=== PATIENT | male | born 1960 | race Hispanic/Latino ===

== ENCOUNTER 2018-05-08 10:27 | Inpatient (IN) | payer OTHER, SELFPAY ==
[2018-05-08] MEDS ORDERED: Ondansetron HCl/PF 4 MG/2 ML Vial ONE (10:47)
[2018-05-08] MEDS ORDERED: Morphine 10 MG/ML VIAL ONE (10:47)
[2018-05-08 11:02] LABS: #Eosinphils 0.1 thou/uL (0.0-0.7); #Lymphocytes 1.1 thou/uL (1.20-3.40); #Monocytes 0.5 thou/uL (0.11-0.59); #Neutrophils 6.6 thou/uL (1.40-6.50); %Basophils 0.5 % (0.0-1.0); %Eosinophils 0.7 % (0.0-10.0); %Monocytes 5.9 % (0.0-10.0); %Neutrophils 79.9 % (42.0-75.0); Hemoglobin 18.4 g/dL (14.0-18.0); Mean Corpuscular HGB CONC 30.6 g/dL (32.0-36.0); Mean Corpuscular Hemoglobin 27.3 pg (27.0-31.0); Mean Corpuscular Volume 89.1 fL (78.0-98.0); Mean Platelet Volume 9.3 fL (7.4-10.4); Platelet Count 152 thou/uL (130-400); RBC Distribution Width 13.8 % (11.5-14.5); Red Blood Cell (RBC) Count 6.75 mill/uL (4.70-6.10); White Blood Cell (WBC) Count 8.3 thou/uL (4.8-10.8)
[2018-05-08] MEDS ORDERED: ISOVUE-370 76%-LOCM 1 ML ONE (11:12)
[2018-05-08 11:24] LABS: ALT (SGPT) 31 U/L (8-55); AST (SGOT) 22 U/L (5-34); Albumin 3.9 g/dL (3.5-5.0); Alkaline Phosphatase 68 U/L (40-150); Anion Gap 16 mmol/L (10-20); BUN (Urea Nitrogen) 20 mg/dL (8.4-25.7); Bilirubin, Total 0.6 mg/dL (0.2-1.2); Calc. Creatinine Clearance 0 mL/min (70-130); Calcium 9.5 mg/dL (7.8-10.44); Carbon Dioxide 25 mmol/L (22-29); Chloride 100 mmol/L (98-107); Estimated GFR-MDRD 65; Globulin 3.6 g/dL (2.4-3.5); Glucose 138 mg/dL (70-105); Lipase 13 U/L (8-78); Potassium 4.5 mmol/L (3.5-5.1); Protein, Total 7.5 g/dL (6.0-8.3); Sodium 136 mmol/L (136-145)
[2018-05-08 12:56] LABS: Bilirubin Negative (Negative); Blood, Urine Trace (Negative); Clarity CLEAR (Clear); Glucose, Urine (Dipstick) Negative (Negative); Leukocyte Negative (Negative); Nitrite Negative (Negative); Protein, Urine (Dipstick) 100 mg/dL (Neg-Trace); Specific Gravity, Urine 1.025 (1.002-1.036); Urobilinogen 0.2 mg/dL (0.2-1.0); pH, Urine 5.5 (5.0-9.0)
[2018-05-08 13:00] LABS: Bacteria/HPF None Seen HPF (None Seen); Hyaline Casts/LPF 0-3 HYALINE CAST LPF (0-3 Hyaline); Pathc Cast-AUWi Flag 0.43 (0-2.49); RBC/HPF 0-3 HPF (0-3); Squamous Epithelial 0-3 HPF (0-3)
--- NOTE | 2018-05-08 13:20 | CT ---
CT ABDOMEN AND PELVIS WITH CONTRAST: HISTORY: Abdominal pain. Hernia. COMPARISON: None. FINDINGS: The pulmonary veins are dilated. Heart size is enlarged. There is reflux of contrast through the hepatic veins. There is a fat and small bowel containing ventral hernia, as well as fluid within this hernia sac. T here is mild distention of the small bowel proximal to this, measuring up to 3.4 cm. There is also s ome low grade mesenteric edema, likely due to vascular congestion. The small bowel distal to this is not dilated and is collapsed. There is extensive diverticular disease at the sigmoid colon without active current inflammation. Th e liver is unremarkable, as well as the spleen. The pancreas is unremarkable. Both adrenal glands a re unremarkable. No hydronephrosis. Aortoiliac contour is nonaneurysmal. No acute osseous abnormality. IMPRESSION: 1. Small bowel, fat, and fluid containing umbilical hernia with a narrow, 1.4 cm neck, with mild dil atation of the small bowel proximal to this, measuring up to 3.4 cm, with some adjacent mesenteric ed dudley, which may be the sequela of vascular congestion. Surgical consultation advised. 2. Moderate to severe diverticular disease of the sigmoid colon without active current inflammation. 3. Dilatation of the pulmonary veins, as well as reflux of contrast into the hepatic veins, suggesti ng diastolic dysfunction. POS: [facility]
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
[2018-05-08] MEDS ORDERED: Vecuronium 10 MG VIAL ONE ×2 (13:53→18:31)
[2018-05-08] MEDS ORDERED: PHENYLEPHRINE-NS 100 MCG/ML 10 ML SYRINGE ONE (13:53)
[2018-05-08] MEDS ORDERED: Naloxone HCl 0.4 mg/ml Vial ONE ×2 (14:22→14:31)
[2018-05-08] MEDS ORDERED: Naloxone HCl 2 mg/2 ml Syringe ONE (14:31)
[2018-05-08] MEDS ORDERED: Rocuronium Bromide 50 MG/5 ML VIAL ONE (14:41)
[2018-05-08 15:34] LABS: CO2 Tension 123.5 mmHg (35.0-45.0); O2 Tension (PaO2) 88.8 mmHg (80.0-100.0); pH, Arterial 7.07 (7.35-7.45)
[2018-05-08 15:35] LABS: Hematocrit-ABG 68.1 % (42.0-52.0)
[2018-05-08 15:36] LABS: ALV-art Gradient 13.505 (0-20); Analyzer IN Cardio ER; Calcium, Ionized 1.3 mmol/L (1.12-1.30); Puncture Site RRA
[2018-05-08] MEDS ORDERED: fentaNYL Citrate/PF 2,000 MCG in Sodium Chloride 0.9% 60 ML IV SCH (15:37)
[2018-05-08] MEDS ORDERED: Bupivacaine/Epinephrine 0.25% 30 ML VIAL ONE (16:04)
[2018-05-08 16:05] LABS: Actual Bicarbonate (HCO3a) 28.3 mEq/L (22-28); Base Excess (BEa) 1.9 mEq/L (-2.0 to +3.0); CO2 Tension 49.7 mmHg (35.0-45.0); Hematocrit-ABG 66.8 % (42.0-52.0); Hemoglobin (Hb) 19.3 g/dL (14.0-18.0); O2 Tension (PaO2) 78.2 mmHg (80.0-100.0); pH, Arterial 7.37 (7.35-7.45)
[2018-05-08 16:06] LABS: ALV-art Gradient 144.875 (0-20); Analyzer IN Cardio ER; Calcium, Ionized 1.2 mmol/L (1.12-1.30); Puncture Site RRA
[2018-05-08 16:08] LABS: Lactic Acid 2.3 mmol/L (0.5-2.2)
[2018-05-08] MEDS ORDERED: Fentanyl BOLUS 250 ML IVPB PRN ×2 (16:13→18:51)
--- NOTE | 2018-05-08 16:21 | RAD ---
CHEST ONE VIEW: 05/08/18 HISTORY: 57-year-old male with history of dyspnea, left lower abdominal pain. patient feels drowsy and shortne ss of breath at times. Endotracheal tube is noted in satisfactory location. Poor inspiratory effort. Minimal cardiomegaly. M inimal parenchymal changes in the bases probably subsegmental atelectasis. No confluent pneumonia or overt edema. IMPRESSION: Large body habitus lowers the sensitivity of this study. NG tube and endotracheal tubes in satisfacto ry location. Cardiomegaly with minimal increased markings in the bases probably subsegmental atelecta sis. POS: [facility]
[2018-05-08] MEDS ORDERED: Fentanyl 250 MCG/5 ML VIAL ONE (17:09)
[2018-05-08] MEDS ORDERED: Phenylephrine HCL 10 MG/ML VIAL ONE (17:09)
[2018-05-08] MEDS ORDERED: Albumin 5% 500 ML ONE (18:31)
[2018-05-08] MEDS ORDERED: Ondansetron HCl/PF 4 MG/2 ML Vial IVP PRN ×2 (18:51→18:53)
[2018-05-08] MEDS ORDERED: DISCONTINUE PREVIOUS NARCOTIC PAIN MEDICATIONS AND BENZODIAZEPINES FS SCH (18:51)
[2018-05-08] MEDS ORDERED: Promethazine HCl 25 MG/ML VIAL IM PRN (18:51)
[2018-05-08] MEDS ORDERED: Propofol BOLUS 1,000 MG/100 ML VIAL IV PRN (18:51)
[2018-05-08] MEDS ORDERED: Promethazine HCl 25 MG/ML VIAL SLOW IVP PRN (18:51)
[2018-05-08] MEDS ORDERED: Sodium Chloride 0.9% 1,000 ML IV SCH (18:53)
[2018-05-08] MEDS ORDERED: Morphine 4 MG/ML VIAL SLOW IVP PRN (19:00)
[2018-05-08] MEDS ORDERED: Bacitracin Zinc Ointment 30 gm TUBE ONE (19:20)
[2018-05-08 20:11] VITALS: BMI 38.2
[2018-05-08] MEDS: Sodium Chloride 0.45% 1,000 ML IV SCH (20:59)
[2018-05-08] MEDS: Propofol 1,000 MG/100 ML VIAL IV PRN (21:59)
--- NOTE | 2018-05-09 01:18 | OP ---
DATE OF OPERATION: 05/08/2018 PREOPERATIVE DIAGNOSIS: 1). Acute incarcerated umbilical hernia. 2). Morbid obesity POSTOPERATIVE DIAGNOSIS: 1). Acute incarcerated umbilical hernia. 2). Morbid obesity OPERATIONS PERFORMED: Repair of incarcerated umbilical hernia with large Ventralex ST hernia patch. ESTIMATED BLOOD LOSS: 5 mL FLUIDS GIVEN: 1200 mL crystalloids. ANESTHESIA: General endotracheal. COUNTS: Sponge and instrument count certified as correct x2. COMPLICATIONS: None apparent at the time of operation. INDICATIONS FOR PROCEDURE: A 57-year-old morbidly obese man presented to emergency department with over 6-hour history of nonreducible painful umbilical mass consistent with umbilical hernia incarceration. CT scan of the abdomen and pelvis revealed hernia with a narrow neck containing fat and small bowel. The patient was brought to the operating room for repair. Findings are consistent with a large hernia sac and narrow hernia defect. The bowel contents spontaneously reduced during the process of hernia sac dissection. DESCRIPTION OF PROCEDURE: Informed consent obtained from the patient's as the patient was unable to give consent. He had developed acute hypercarbic and hypoxemic respiratory failure by the time of my evaluation. Following consent by his , the patient was brought to the operating room and placed in supine position. General anesthesia was initiated per Anesthesia Department following which the abdomen was sterilely prepped and draped in usual fashion. The skin around the inferior aspect of the umbilicus was infiltrated with 0.25% Marcaine with epinephrine. A curvilinear infraumbilical incision was then made using # 10 scalpel. Incision was carried down to the level of the fascia. The umbilical hernia sac was dissected from the fascia. Umbilical stalk was then meticulously dissected off the hernia sac. During this dissection, I felt the contents of the hernia sac spontaneously reduced into the peritoneal cavity. I did then opened the hernia sac through the narrow hernia defect was unable to visualize any of the contents. It was of note, however, that the ascitic fluid was serous and clear, which does not suggest any possibility of strangulation. At this juncture, the hernia sac was excised circumferentially down to the level of the viable tanana fascia. This was passed off the operative field for onward transmission to pathology. A large Ventralex ST hernia patch was then brought into the operative field and introduced into the peritoneal cavity and this was sutured to the tanana fascia circumferentially using interrupted sutures of 2-0 Prolene. The fascia was then approximated in the midline using interrupted sutures of #1 single-stranded PDS. Umbilical stalk was then reattached to the tanana fascia using interrupted sutures of 2-0 Vicryl. Subcutaneous tissues were approximated using interrupted sutures of 2-0 Vicryl. Skin incision was closed using a running stitch of 3-0 Monocryl suture in subcuticular fashion. Dermabond was then applied. I had rolled some 4 x 4 gauze which was then placed into the umbilicus and tape was applied over this. The patient tolerated the operation without any apparent complication and was returned to the Intensive Care Unit in critical, but stable condition. NAKUL
[2018-05-09] MEDS: Propofol 1,000 MG/100 ML VIAL IV PRN ×3 (03:06→19:53)
[2018-05-09 06:06] LABS: Albumin 3.3 g/dL (3.5-5.0)
[2018-05-09 06:07] LABS: Chloride 103 mmol/L (98-107); Potassium 4.2 mmol/L (3.5-5.1); Sodium 139 mmol/L (136-145)
[2018-05-09 06:08] LABS: Calcium 9.1 mg/dL (7.8-10.44)
[2018-05-09 06:09] LABS: Globulin 3.1 g/dL (2.4-3.5); Glucose 155 mg/dL (70-105); Protein, Total 6.4 g/dL (6.0-8.3)
[2018-05-09 06:10] LABS: Anion Gap 14 mmol/L (10-20); Carbon Dioxide 26 mmol/L (22-29)
[2018-05-09 06:11] LABS: Alkaline Phosphatase 65 U/L (40-150)
[2018-05-09 06:12] LABS: Calc. Creatinine Clearance 105 mL/min (70-130); Estimated GFR-MDRD 51
[2018-05-09 06:13] LABS: BUN (Urea Nitrogen) 23 mg/dL (8.4-25.7)
[2018-05-09 06:14] LABS: ALT (SGPT) 23 U/L (8-55); AST (SGOT) 17 U/L (5-34); Bilirubin, Total 1.4 mg/dL (0.2-1.2)
[2018-05-09 06:23] LABS: Band 20 % (5-11); Hemoglobin 17.8 g/dL (14.0-18.0); Lymphocytes 10 % (21-51); MDiff Complete? YES; Mean Corpuscular HGB CONC 31.1 g/dL (32.0-36.0); Mean Corpuscular Volume 86.7 fL (78.0-98.0); Monocytes 4 % (0-10); Neutrophil 66 % (42-75); Platelet Count 176 thou/uL (130-400); RBC Distribution Width 14.1 % (11.5-14.5); Red Blood Cell (RBC) Count 6.58 mill/uL (4.70-6.10); White Blood Cell (WBC) Count 12.7 thou/uL (4.8-10.8)
[2018-05-09 06:55] LABS: Actual Bicarbonate (HCO3a) 27.2 mEq/L (22-28); Base Excess (BEa) 3.8 mEq/L (-2.0 to +3.0); CO2 Tension 37.6 mmHg (35.0-45.0); Hemoglobin (Hb) 19.1 g/dL (14.0-18.0); O2 Tension (PaO2) 60.2 mmHg (80.0-100.0); pH, Arterial 7.48 (7.35-7.45)
[2018-05-09 06:56] LABS: Calcium, Ionized 1.1 mmol/L (1.12-1.30); Puncture Site RR
--- NOTE | 2018-05-09 07:01 | CON ---
DATE OF CONSULTATION: 05/08/2018 HISTORY OF PRESENT ILLNESS: Tiburcio Culp is a 57-year-old male. His is an excellent historian who was in the room with him, daughter was in the room as well. He apparently presented to the emergency department with periumbilical pain. He has an umbilical hernia and by CT was found to have bowel entrapped in his hernia. General Surgery was consulted. When the surgeon arrived, Mr. Culp was noted to be poorly responsive and subsequently required intubation. His gives a great history for very severe sleep apnea. She has been trying for at least 2 years to get him in for a sleep study, but he has been refusing. She says he cannot go through the night without having long periods of apnea for which he awakens in. She says he gets angry when she awakens him, but he clearly does not breathe during sleep. He is also somnolent during the day. He is never fallen asleep while driving. PAST MEDICAL HISTORY: Remarkable otherwise only for hypertension and obesity. SOCIAL HISTORY: Non-smoker, nondrinker, no drug history. He works construction. FAMILY HISTORY: Negative for lung disease in early age. ALLERGIES: He has no reported drug allergies. MEDICATIONS: Prior to admission, he is reportedly on an aspirin, lisinopril, and Zyrtec. He is hypertensive when he was triaged at 176/112. PHYSICAL EXAMINATION: VITAL SIGNS: When I saw him, his blood pressure was normal. He was sedated for ventilation. HEENT: His conjunctiva was injected. His pupils reactive. NECK: Without lymphadenopathy. LUNGS: Clear and distant. HEART: Regular rhythm. ABDOMEN: Soft and nontender. He had a nonreducible large umbilical hernia. EXTREMITIES: Without clubbing, cyanosis or edema. NEUROLOGIC: Could not be examined. Chest radiograph did not show any alveolar infiltrates. Endotracheal tube and NG tube are in place. IMPRESSION: Respiratory failure associated with pain medication since untreated to very severe sleep apnea. He has with a hematocrit of 60. If his hemoglobin did not drop significantly, we need to consider phlebotomy, tomorrow he will have surgery and then remain mechanically ventilated. His pH this morning was 7.07, pCO2 was 123. Post-intubation blood gas 7.37, CO2 of 49, pO2 of 78. Hematocrit on his blood gas was 66 and 68 respectively. We will see his lab work shows and we will consider phlebotomy. He probably needs a sleep mechanically ventilated as I have explained to the for several days, so we can get caught up on sleep and will have surgery and hopefully did not require bowel resection. Critical care time 40 minutes. NAKUL
[2018-05-09] MEDS ORDERED: methylPREDNISolone Sod Succ/PF 125 MG/2 ML VIAL IVP SCH ×2 (09:00)
--- NOTE | 2018-05-09 09:39 | RAD ---
PORTABLE CHEST: Date: 05-09-18 Provided Clinical History: Respiratory insufficiency. FINDINGS: Comparison 05-08-18. Interval development of more conspicuous parenchymal and/or pleural opacity involv ing the left hemithorax primarily at the mid to lower lung zones. Endotracheal tube and enteric power ter again noted in similar positions. The right lung field appears clear. IMPRESSION: Interval increase in left mid and lower lung zone pleural and/or parenchymal opacity. Follow up is re commended. POS: [facility]
[2018-05-09] MEDS: Lorazepam 2 MG/ML VIAL SLOW IVP PRN ×2 (10:04→12:52)
[2018-05-09] MEDS: Sodium Chloride 0.45% 1,000 ML IV SCH ×2 (10:09→19:52)
--- NOTE | 2018-05-09 10:50 | PRG ---
DATE OF SERVICE: 05/09/2018 SUBJECTIVE: Mr. Culp is in no distress. OBJECTIVE: VITAL SIGNS: Blood pressure 116/69, heart rate is 90, respiratory rate 22, oximetry is 96. LUNGS: Clear. HEART: Regular rhythm. ABDOMEN: Soft. IMAGING: Chest radiograph is rotated and underpenetrated. LABORATORY DATA: White count 12.7, hemoglobin 17.8, platelets 176,000. Electrolytes normal, creatinine is 1.44, which I suspect is secondary to abdominal third spacing after his surgery. IMPRESSION: 1. Status post incarcerated umbilical hernia that has been surgically repaired. 2. Severe untreated sleep apnea, it has been likely life threatening with coexistent erythrocytosis. PLAN: Sleep him on mechanical ventilation for another day and then tomorrow wake him up and start aggressively trying to wean him from mechanical ventilation or probably have to go straight to BiPAP. I would like to avoid a tracheostomy if at all possible in this gentleman. His hypoxemia is most likely secondary to chronic hypoxemia associated with sleep apnea plus some atelectasis associated with his surgery yesterday. I suspect with ongoing volume resuscitation, his creatinine will stabilize. It is unclear why his bilirubin is elevated with normal liver enzymes unless he has Gilbert's syndrome. Continue to monitor this as well. Critical care time was 35 minutes. NAKUL
--- NOTE | 2018-05-09 16:02 | PRG ---
DATE OF SERVICE: 05/09/2018. SUBJECTIVE: Ms. Culp a 57-year-old morbidly obese man who is postoperative day #1 who is status post umbilical herniorrhaphy with mesh for an incarcerated umbilical hernia. The patient is on mecha nical ventilator support. Ventilator weaning is being conducted per Pulmonary Critical Care Medicine . The patient moves all extremities and follows commands. OBJECTIVE: VITAL SIGNS: Today includes blood pressure 110/59, pulse 85, respiratory rate is 18, temperature 99. 5 degrees Fahrenheit, oxygen saturation 96%. ABDOMEN: Soft, morbidly obese. Incision remains intact, clean, and dry. There is no evidence of he matoma around the umbilicus. No evidence of hernia recurrence. IMPRESSION: Postoperative day #1, status post umbilical herniorrhaphy with mesh. The patient is hem odynamically stable. Ventilatory wean is per Critical Care Medicine.
[2018-05-10 05:08] LABS: Anion Gap 15 mmol/L (10-20); BUN (Urea Nitrogen) 26 mg/dL (8.4-25.7); Calc. Creatinine Clearance 97 mL/min (70-130); Calcium 8.7 mg/dL (7.8-10.44); Carbon Dioxide 27 mmol/L (22-29); Chloride 101 mmol/L (98-107); Estimated GFR-MDRD 47; Glucose 106 mg/dL (70-105); Potassium 3.9 mmol/L (3.5-5.1); Sodium 139 mmol/L (136-145)
[2018-05-10 05:16] LABS: Band 14 % (5-11); Eosinophils 1 % (0-10); Hemoglobin 17.1 g/dL (14.0-18.0); Lymphocytes 4 % (21-51); MDiff Complete? YES; Mean Corpuscular HGB CONC 30.8 g/dL (32.0-36.0); Mean Corpuscular Hemoglobin 27.2 pg (27.0-31.0); Mean Corpuscular Volume 88.2 fL (78.0-98.0); Mean Platelet Volume 9.4 fL (7.4-10.4); Monocytes 15 % (0-10); Neutrophil 66 % (42-75); Platelet Count 153 thou/uL (130-400); RBC Distribution Width 14.3 % (11.5-14.5); Red Blood Cell (RBC) Count 6.29 mill/uL (4.70-6.10); White Blood Cell (WBC) Count 12.6 thou/uL (4.8-10.8)
[2018-05-10] MEDS: Sodium Chloride 0.45% 1,000 ML IV SCH ×2 (06:01→16:08)
[2018-05-10 07:38] LABS: CO2 Tension 57.2 mmHg (35.0-45.0); O2 Tension (PaO2) 77.1 mmHg (80.0-100.0); pH, Arterial 7.33 (7.35-7.45)
[2018-05-10 07:39] LABS: Actual Bicarbonate (HCO3a) 29.6 mEq/L (22-28); Base Excess (BEa) 1.7 mEq/L (-2.0 to +3.0); Calcium, Ionized 1.2 mmol/L (1.12-1.30); Hemoglobin (Hb) 19.5 g/dL (14.0-18.0); Puncture Site LRA
--- NOTE | 2018-05-10 10:33 | PRG ---
DATE OF SERVICE: 05/10/2018 Mr. Culp is a 57-year-old man, who is postoperative day #2, status post umbilical herniorrhaphy w ith mesh. The patient is on full mechanical ventilator support for acute preoperative respiratory fa ilure. The patient has a preexisting severe obstructive sleep apnea and chronic hypoxemia. Critical care support is provided by Pulmonary and Critical Care Service. Abdominal examination today reveal s a baseline morbidly obese abdomen. The umbilical herniorrhaphy site is clean and dry. There is no evidence of recurrence. Dressings were removed and left out. There is no acute surgical indication for this patient at this time. We will continue to follow along with the Critical Care Service.
--- NOTE | 2018-05-10 15:47 | PRG ---
DATE OF SERVICE: 05/10/2018 SUBJECTIVE: Mr. Culp was examined. He is awake and alert. He is in no distress. He had minimal NG output overnight. Spontaneous breathing trial was started and his minute volume was only 8 liters a minute. He passed a leak test. OBJECTIVE: LUNGS: Clear. HEART: Regular rhythm. ABDOMEN: Soft. EXTREMITIES: Without asymmetry. LABORATORY DATA: White count 12.6, hemoglobin 17.1, platelets 153,000. Sodium 139, potassium 3.9, chloride 101, bicarb 27, BUN 26, creatinine 1.55. IMPRESSION: 1. Status post incarcerated hernia repair. 2. Very severe sleep apnea, likely with erythrocytosis. Surprisingly, he did not have hypercarbia on presentation based on his Chem-7. 3. Chronic severe sleep deprivation, making him sensitive to opiates on presentation. Tiny doses of opiates can be used for pain, but that is all I would recommend at this time. He will have BiPAP placed. I felt he was a candidate for extubation. This has been done successfully. We will manage him intermittently with BiPAP eventually after empirically prescribed CPAP or BiPAP at discharge. Critical care time was 35 minutes MTDD
[2018-05-10] MEDS ORDERED: Lisinopril 20 MG TAB PO SCH (16:00)
[2018-05-11 04:59] LABS: Anion Gap 16 mmol/L (10-20); BUN (Urea Nitrogen) 25 mg/dL (8.4-25.7); Calc. Creatinine Clearance 128 mL/min (70-130); Calcium 9.5 mg/dL (7.8-10.44); Carbon Dioxide 27 mmol/L (22-29); Chloride 99 mmol/L (98-107); Estimated GFR-MDRD 64; Glucose 112 mg/dL (70-105); Sodium 138 mmol/L (136-145)
[2018-05-11] MEDS: Lisinopril 20 MG TAB PO SCH (08:53)
--- NOTE | 2018-05-11 14:48 | PRG ---
DATE OF SERVICE: 05/11/2018 SUBJECTIVE: This is a 57-year-old male status post umbilical herniorrhaphy with mesh. The patient h as been postop day #2. Upon my evaluation, he states his pain is well controlled. OBJECTIVE: VITAL SIGNS: Heart rate 87, blood pressure 112/59, respiratory rate 18, O2 sat 90% on room air. GENERAL: Sitting in a chair, out of bed, in no acute distress. Normal work of breathing. Symmetric rise. CARDIOVASCULAR: Regular rate and rhythm. GASTROINTESTINAL: Abdomen is rotund and moderately firm. There is an area of blanchable erythema wi thout fluctuance surrounding the surgical site. Both bedside RN and corroborate this area has n ot grown in size since yesterday. The surgical site is clean, dry and intact without evidence of elise inage. MUSCULOSKELETAL: Moves all extremities x4. NEUROLOGIC: No focal deficit noted. ASSESSMENT: 1. Incarcerated hernia, status post repair, postop day 2. 2. Acute abdominal pain secondary to above. 3. Acute hypercapnic respiratory failure, improved. PLAN: Continue postoperative care as ordered. Critical care per Critical Care Medicine. Supportive care per Hospital Medicine. Surgery will continue to follow.
--- NOTE | 2018-05-11 16:07 | PRG ---
DATE OF SERVICE: 05/11/2018 SUBJECTIVE: Mr. Culp did well overnight with his BiPAP. PHYSICAL EXAMINATION: VITAL SIGNS: His heart rate 83, blood pressure 117/71, respiratory rate 16, oximetry is 94%. GENERAL APPEARANCE: He is doing well, in no distress. LUNGS: Clear. HEART: Regular rhythm. ABDOMEN: Soft. He is passing gas, but not had a bowel movement yet. EXTREMITIES: With stasis changes. LABORATORY DATA: Sodium 138, potassium 4.0, chloride 99, bicarbonate 27, BUN 25, creatinine 1.18. IMPRESSION: 1. Status post incarcerated umbilical hernia. 2. Untreated sleep apnea. 3. Erythrocytosis secondary to severe sleep apnea. 4. Morbid obesity. Continue with empiric BiPAP for now whenever he is asleep. PLAN: Continue with local wound care. Continue with his lisinopril for his hypertension. Hopefully, moving out of the Critical Care Unit t omorrow.
[2018-05-12 04:28] LABS: Band 6 % (5-11); Eosinophils 2 % (0-10); Hemoglobin 15.9 g/dL (14.0-18.0); Lymphocytes 6 % (21-51); MDiff Complete? YES; Mean Corpuscular HGB CONC 31.1 g/dL (32.0-36.0); Mean Corpuscular Volume 90.1 fL (78.0-98.0); Monocytes 12 % (0-10); Neutrophil 74 % (42-75); Platelet Count 158 thou/uL (130-400); RBC Distribution Width 13.8 % (11.5-14.5); Red Blood Cell (RBC) Count 5.68 mill/uL (4.70-6.10); White Blood Cell (WBC) Count 8.5 thou/uL (4.8-10.8)
[2018-05-12 04:35] LABS: Anion Gap 12 mmol/L (10-20); BUN (Urea Nitrogen) 18 mg/dL (8.4-25.7); Calc. Creatinine Clearance 153 mL/min (70-130); Carbon Dioxide 32 mmol/L (22-29); Chloride 99 mmol/L (98-107); Estimated GFR-MDRD 79; Glucose 127 mg/dL (70-105); Potassium 4.2 mmol/L (3.5-5.1); Sodium 139 mmol/L (136-145)
[2018-05-12] MEDS: Lisinopril 20 MG TAB PO SCH (08:38)
--- NOTE | 2018-05-12 10:08 | PRG ---
DATE OF SERVICE: 05/12/2018 SUBJECTIVE: Mr. Kim is a 57-year-old morbidly obese man with a BMI of 38 kilograms per meter [facility]. The patient is postoperative day #4 status post umbilical herniorrhaphy for an incarcerated umbi lical hernia. The patient is awake and alert. Reports adequate pain control. He is tolerating diet . He just had large bowel movement. PHYSICAL EXAMINATION: VITAL SIGNS: This morning includes blood pressure 100/62, pulse 75, respiratory rate is 18, maximum temperature in the last 24 hours is 98.3 degrees Fahrenheit, oxygen saturation 93% on nasal cannula o xygen. ABDOMEN: Soft and morbidly obese. Incisional wound remains intact with minimum serosanguineous drai nage edges. There is surrounding erythema in the wound which blanches with palpation. No flocculenc e or any subcutaneous hematoma is present. LABORATORY DATA: Today includes CBC with 8,500 white blood cells, hemoglobin and hematocrit are 15.9 and 51.2 respectively, platelet count is 158,000. White blood cell count yesterday was 12,600. Met abolic profile today; sodium 139, potassium 4.2, chloride is 99, bicarbonate 32, BUN 18, creatinine 0 .98, glucose 127. IMPRESSION: 1. Postop day #4, status post open umbilical herniorrhaphy with mesh. 2. Subcutaneous cellulitis. PLAN: We will start the patient on cefazolin for the next 24-48 hours. The borders of the skin eryt rowena were marked and will be followed.
[2018-05-12] MEDS ORDERED: CEFAZOLIN 2 GM in Sodium Chloride 0.9% 100 ML IVPB SCH (14:00)
[2018-05-12] MEDS: CEFAZOLIN/Water 2 GM/20 ML SYRINGE SLOW IVP SCH ×2 (14:28→22:13)
--- NOTE | 2018-05-12 18:09 | PRG ---
DATE OF SERVICE: 05/12/2018 SUBJECTIVE: Mr. Culp's wound apparently is not looking good. He was started on antibiotics toda y. He is compliant with his CPAP/BiPAP at night. OBJECTIVE: VITAL SIGNS: He is afebrile, heart rate is 80, respiratory rate is 22, oximetry is 94. LUNGS: Clear. HEART: Regular rhythm. ABDOMEN: Soft. LABORATORY DATA: White count is down to 8.5, hemoglobin 15.9, and platelets 158,000. Electrolytes w ere unremarkable with the exception of bicarbonate of 32. IMPRESSION AND PLAN: 1. Life threatening sleep apnea with an erythrocytosis on admission. His hemoglobin is down to 15.9 . 2. Morbid obesity. 3. Status post incarcerated umbilical hernia repair with wound issues, being followed by General Gary denise. I will continue to follow. He will need an outpatient sleep study. His family will probably have to come up with money for an auto titrating device until we get him a sleep study.
[2018-05-13 04:44] LABS: Anion Gap 13 mmol/L (10-20); BUN (Urea Nitrogen) 16 mg/dL (8.4-25.7); Calc. Creatinine Clearance 158 mL/min (70-130); Calcium 9.4 mg/dL (7.8-10.44); Carbon Dioxide 34 mmol/L (22-29); Chloride 96 mmol/L (98-107); Estimated GFR-MDRD 82; Glucose 120 mg/dL (70-105); Potassium 3.8 mmol/L (3.5-5.1); Sodium 139 mmol/L (136-145)
[2018-05-13 04:54] LABS: Band 6 % (5-11); Eosinophils 4 % (0-10); Hemoglobin 15.8 g/dL (14.0-18.0); Lymphocytes 13 % (21-51); MDiff Complete? YES; Mean Corpuscular HGB CONC 30.5 g/dL (32.0-36.0); Mean Corpuscular Hemoglobin 27.4 pg (27.0-31.0); Mean Corpuscular Volume 89.9 fL (78.0-98.0); Mean Platelet Volume 9.1 fL (7.4-10.4); Monocytes 13 % (0-10); Neutrophil 64 % (42-75); Platelet Count 165 thou/uL (130-400); RBC Distribution Width 13.6 % (11.5-14.5); Red Blood Cell (RBC) Count 5.76 mill/uL (4.70-6.10); White Blood Cell (WBC) Count 7.2 thou/uL (4.8-10.8)
[2018-05-13] MEDS: CEFAZOLIN/Water 2 GM/20 ML SYRINGE SLOW IVP SCH ×3 (05:16→21:19)
[2018-05-13] MEDS: Lisinopril 20 MG TAB PO SCH (09:18)
[2018-05-13] MEDS: Enoxaparin Sodium 30 MG/0.3 ML SYRINGE SC SCH ×2 (09:18→21:18)
--- NOTE | 2018-05-13 10:59 | PRG ---
DATE OF SERVICE: 05/13/2018 SUBJECTIVE: Mr. Culp is a 57-year-old morbidly obese man, who is postoperative day #5, status po st umbilical herniorrhaphy with mesh. The patient is awake and alert and reports adequate pain contr ol. He is tolerating general diet, having normal bowel and urinary function. Abdominal examination today reveals a markedly obese abdomen, which is nontender to palpation. The umbilical incision is i ntact with minimum serous drainage. There is some scattered area of necrosis make the superficial ne crosis of the umbilical skin. There is surrounding erythema with blanches to palpation. It has not extended beyond the marked borders yesterday. Clearly, the patient has no peritoneal signs on examin ation. OBJECTIVE: VITAL SIGNS: Today includes blood pressure 130/76, pulse 85, respiratory rate is 20. Maximum temper ature in the last 24 hours is 99.1 degrees Fahrenheit, oxygen saturation is 94% on 2 liters by nasal cannula oxygen. LABORATORY DATA: CBC today with a white blood cell count of 7200, hemoglobin and hematocrit are 15.8 and 51.8 respectively. Platelet count is 165,000. Metabolic profile: Sodium 139, potassium is 3.8 , chloride is 96, bicarbonate is 34, BUN is 16, creatinine is 0.95, and glucose 120. IMPRESSION: 1. Postoperative day #1 status post umbilical herniorrhaphy with mesh. 2. Paraumbilical soft tissue cellulitis. PLAN: Continue with IV antibiotics. There is no acute surgical indication for this patient at this time. I did discuss with the patient and his with regards to the findings of cellulitis and con cern that parts of the umbilical stalk might be ischemic. There is, however, no indication for surgi jose intervention at this time. I will continue to monitor the umbilicus and make further recommendat ions as necessary in the next few days. This patient's morbid abdominal obesity is quite challenging as he puts a tremendous amount of stretch to the umbilical repair. We will continue to follow.
--- NOTE | 2018-05-13 13:20 | PRG ---
DATE OF SERVICE: 05/13/2018 Mr. Culp is sleeping well with his BiPAP. He has no complaints. PHYSICAL EXAMINATION: VITAL SIGNS: His vital signs are stable. He is afebrile, heart rate 72, respiratory rate 20, oximet ry is 93. Blood pressure 133/76. LUNGS: Clear. HEART: Regular rhythm. ABDOMEN: Abdominal wall is still erythematous, but based on the lines drawn on his abdomen, it may b e a little better. LABORATORY DATA: White count 7.2, hemoglobin 15.8, platelets 165. Sodium 139, potassium 3.8, chloride 96, bicarbonate 34, BUN 16, creatinine 0.9. IMPRESSION: 1. Untreated severe sleep apnea, doing well with empiric BiPAP. 1. Status post surgical repair of an incarcerated umbilical hernia. 2. Abdominal wall cellulitis. 3. Obesity with deconditioning. From this hospitalization he is actually pretty active, he is a con struction worker. He will probably need some empiric CPAP or BiPAP when he goes home. Family may have come out of [facility] for this. We will continue IV antibiotics per General Surgery at this point in time. He will rem ain in the Intermediate Care Unit for now.
[2018-05-14 04:20] LABS: Band 6 % (5-11); Eosinophils 5 % (0-10); Hemoglobin 15.9 g/dL (14.0-18.0); Lymphocytes 7 % (21-51); MDiff Complete? YES; Mean Corpuscular HGB CONC 31.1 g/dL (32.0-36.0); Mean Corpuscular Hemoglobin 27.8 pg (27.0-31.0); Mean Corpuscular Volume 89.6 fL (78.0-98.0); Mean Platelet Volume 8.5 fL (7.4-10.4); Monocytes 15 % (0-10); Neutrophil 67 % (42-75); Platelet Count 184 thou/uL (130-400); RBC Distribution Width 13.5 % (11.5-14.5); Red Blood Cell (RBC) Count 5.72 mill/uL (4.70-6.10); White Blood Cell (WBC) Count 6.5 thou/uL (4.8-10.8)
[2018-05-14 04:31] LABS: Anion Gap 12 mmol/L (10-20); BUN (Urea Nitrogen) 12 mg/dL (8.4-25.7); Calc. Creatinine Clearance 191 mL/min (70-130); Calcium 9.3 mg/dL (7.8-10.44); Carbon Dioxide 34 mmol/L (22-29); Chloride 98 mmol/L (98-107); Estimated GFR-MDRD Greater than 90; Glucose 125 mg/dL (70-105); Potassium 3.9 mmol/L (3.5-5.1); Sodium 140 mmol/L (136-145)
[2018-05-14] MEDS: CEFAZOLIN/Water 2 GM/20 ML SYRINGE SLOW IVP SCH (05:45)
[2018-05-14] MEDS: Lisinopril 20 MG TAB PO SCH (08:44)
[2018-05-14] MEDS: Enoxaparin Sodium 30 MG/0.3 ML SYRINGE SC SCH ×2 (08:44→20:55)
--- NOTE | 2018-05-14 10:24 | PRG ---
DATE OF SERVICE: 05/14/2018 SUBJECTIVE: Mr. Culp is a 57-year-old morbidly obese man who is 6 feet tall, 286 pounds with BMI of 38.9 kilograms per meter squared. The patient is postoperative day #6 status post umbilical jony iorrhaphy with mesh for acute incarcerated umbilical hernia. He has developed cellulitis around the umbilicus which is stable. Today, he denies any abdominal pain. He is tolerating general diet, havi ng normal bowel and urinary function. PHYSICAL EXAMINATION: VITAL SIGNS: This morning includes blood pressure 131/80, pulse is 68, respiratory rate is 19. Maxi mum temperature in the last 24 hours is 97.4 degrees Fahrenheit and oxygen saturation is 93% on 3 lit ers by nasal cannula oxygen. ABDOMEN: Soft and morbidly obese. Incision is intact with minimal serous drainage present. The red ness around the umbilicus is stable. There is no flocculence on palpation. NEUROLOGIC: Reveals no focal deficits present. LABORATORY FINDINGS: Includes CBC with 6,500 white blood cells, hemoglobin and hematocrit 15.9 and 5 1.2 respectively. Platelet count is 184,000. Differential counts are as follows; 67% segmented neut rophils, 6 bands, 7 lymphocytes, 15 monocytes and 5 eosinophils. Metabolic profile: Sodium 140, pot assium 3.9, chloride is 98, bicarbonate is 34, BUN 12, creatinine 0.79 and glucose is 125. IMPRESSION: 1. Postoperative day #6 status post umbilical herniorrhaphy with mesh. 2. Periumbilical cellulitis, stable. 3. Morbid obesity. 4. History of obstructive sleep apnea. 5. History of type 2 diabetes mellitus. PLAN: Continue with oral antibiotics. The patient is certainly stable for discharge from a surgical standpoint to follow up with me in the Surgery Clinic in 1 week. He will be given a prescription fo r clindamycin 300 mg to be taken 1 p.o. t.i.d. for 1 week. I have discussed the above findings and p alek with the patient who indicates understanding of the information given. I answered his questions.
--- NOTE | 2018-05-14 11:16 | PRG ---
DATE OF SERVICE: 05/14/2018 SERVICE: Pulmonary Medicine. INTERVAL HISTORY: The patient is doing absolutely wonderful from a respiratory standpoint. He takes deep breaths and his saturations popped up. When he does not think about his breathing, however, he settles down in the mid 80s on room air. He is actually asymptomatic from it. He is not having any cough or sputum production. He denies having any fevers, chills, or overnight events. He has been able to ambulate throughout his room without difficulty. PHYSICAL EXAMINATION: VITAL SIGNS: Afebrile, pulse 68, blood pressure 131/80, respirations 19, saturation 93% on 3 liters nasal cannula; on room air, he is 84%. HEENT: Normocephalic, atraumatic. Sclerae are white. Conjunctivae pink. Oral and nasal mucosa is moist without lesions. LUNGS: Decent air entry. There is no prolonged expiratory phase, wheezing, rhonchi, or crackles pre sent. HEART: Normal rate, regular. ABDOMEN: Soft, nontender, nondistended. Bowel sounds are positive. MUSCULOSKELETAL: No cyanosis or clubbing. No pitting in the bilateral lower extremities. NEUROLOGIC: Grossly nonfocal. LABORATORY DATA: CBC is completely unremarkable x3 days. Basic metabolic profile is stable and/or u nremarkable times a period of 3 days. Urinalysis is negative. ASSESSMENT: 1. Sleep apnea, severe. 2. Incarcerated umbilical hernia, status post repair. 3. Cellulitis of the abdominal wall. 4. Obesity with improving deconditioning. DISCUSSION AND PLAN: The patient is completely unfunded. He has derrived excellent benefit from usi ng noninvasive ventilation. As such, on discharge from the hospital, we would like to try to set him up with auto-titrating CPAP. Ideally, he had to undergo a polysomnogram, but he has absolutely no w ay of affording this type of a diagnostic procedure. He can be transitioned to the surgical unit. [facility] will continue to follow along for the time being.
[2018-05-14] MEDS: Clindamycin 150 MG CAP PO SCH ×2 (11:17→17:27)
[2018-05-15] MEDS: Clindamycin 150 MG CAP PO SCH ×3 (00:57→17:49)
--- NOTE | 2018-05-15 08:45 | RAD ---
2 VIEW CHEST: Date: 05/15/18 HISTORY: Aspiration pneumonia. COMPARISON: 05/09/18. FINDINGS: Mild cardiomegaly. Vascular markings are prominent. There is dense opacity in the medial left lung ba se which could represent dense infiltrate or atelectasis. No other evidence of infiltrate. There is e vidence of a granuloma in the right apex. IMPRESSION: Question dense atelectasis or infiltrate in the medial left lung base. Cardiomegaly and mild vascular prominence. Lungs are better aerated than on the prior study. POS: [facility]
[2018-05-15] MEDS: Lisinopril 20 MG TAB PO SCH (09:01)
[2018-05-15] MEDS: Enoxaparin Sodium 30 MG/0.3 ML SYRINGE SC SCH ×2 (09:01→20:14)
--- NOTE | 2018-05-15 15:29 | PRG ---
DATE OF SERVICE: 05/15/2018 SERVICE: Pulmonary Medicine. INTERVAL HISTORY: The patient is doing really well from a respiratory standpoint. He is breathing c omfortably. He has no chest discomfort, nausea, vomiting, fevers, or chills. Otherwise, there has b een no interval change to his condition. He has been able to get up and walk around. His oxygen req uirements are improving slightly. PHYSICAL EXAMINATION: VITAL SIGNS: Afebrile, pulse 74, blood pressure 145/84, respirations 21, saturation 92% on 2 liters nasal cannula. GENERAL: The patient is awake, alert, in no apparent distress. LUNGS: There is a decent air entry. Rhonchi are present on the left. No prolonged expiratory phase or wheezing is appreciated. There are no crackles. HEART: Normal rate, regular. ABDOMEN: Soft, nontender, nondistended. Bowel sounds are positive. MUSCULOSKELETAL: No cyanosis or clubbing. There is no pitting in the bilateral lower extremities. NEUROLOGIC: Grossly nonfocal. IMAGING: Chest x-ray demonstrates questionable dense atelectasis or infiltrate in left medial lung b ase. Actually, this is improved compared to prior. Cardiomegaly and mild vascular prominence are id entified. ASSESSMENT: 1. Obstructive sleep apnea, severe, witnessed at bedside during the hospital stay. 2. Incarcerated umbilical hernia, status post repair. 3. Cellulitis of the abdominal wall, improving. 4. Obesity with improving deconditioning. DISCUSSION AND PLAN: I will give the patient a prescription for an auto-titrating CPAP machine and s upplies. We will try to get him on to the floor. We will set him up with oxygen in the outpatient s etting if he needs it. He will be ready for discharge from the hospital in 24-48 hours, particularly if his oxygen requirements improve. Hopefully, we will not have to send him home on oxygen in a day or two.
[2018-05-16] MEDS: Clindamycin 150 MG CAP PO SCH ×2 (02:13→09:40)
[2018-05-16 07:37] VITALS: TEMP 97.6
[2018-05-16 09:40] VITALS: BP 130/79
[2018-05-16] MEDS: Lisinopril 20 MG TAB PO SCH (09:40)
[2018-05-16] MEDS: Enoxaparin Sodium 30 MG/0.3 ML SYRINGE SC SCH (09:45)
--- NOTE | 2018-05-16 11:37 | PRG ---
DATE OF SERVICE: 05/16/2018 SERVICE: Pulmonary Medicine. INTERVAL HISTORY: The patient is doing great from a respiratory standpoint. He has actually been ab le to wean off oxygen this morning, his saturations were 91% on room air. He has ordered his CPAP un it. It should be arriving in his house tomorrow. He has nearly completed antibiotic course. He has absolutely no complaints of fevers, chills, nausea, vomiting, cough, sputum production. With exerti on, he dips down to 88% or 87%, but he is perfectly asymptomatic with this. His oxygen requirements are steadily improving. PHYSICAL EXAMINATION: VITAL SIGNS: Afebrile, pulse 75, blood pressure 166/97, respirations 21, saturation 91% on room air. GENERAL: Patient is awake, alert, no apparent distress. LUNGS: Excellent air entry. There is no prolonged expiratory phase, wheezing, rhonchi, or crackles present. HEART: Normal rate, regular. ABDOMEN: Soft, nontender, nondistended. Bowel sounds are positive. MUSCULOSKELETAL: No cyanosis or clubbing. No pitting in the bilateral lower extremities. NEUROLOGIC: Grossly nonfocal. ASSESSMENT: 1. Obstructive sleep apnea, severe, witnessed at bedside during hospital stay. 2. Incarcerated umbilical hernia, status post repair. 3. Cellulitis of the abdominal wall, improving. 4. Obesity with decondition, resolved. DISCUSSION AND PLAN: The patient is doing absolutely wonderful from infectious disease standpoint. We set him up with CPAP in the outpatient setting. He will complete a 5-day course of clindamycin. At this point, he is stable for transition home. We will resume some of his home medications includi ng lisinopril/hydrochlorothiazide. He will need to follow up with Dr. Stark in the outpatient [facility] in 1-2 months. I have asked him to bring in his device so that we can get download off.
--- NOTE | 2018-05-16 15:02 | DIS ---
DATE OF ADMISSION: 05/08/2018 DATE OF DISCHARGE: 05/16/2018 ADMISSION DIAGNOSES: 1. Hypertension. 2. Incarcerated umbilical hernia. DISCHARGE DIAGNOSES: 1. Obstructive sleep apnea, severe. 2. Incarcerated umbilical hernia, status post repair. 3. Hypertension. 4. Morbid obesity. CONSULTS: 1. General Surgery. 2. Critical Care. PROCEDURES: 1. Repair of incarcerated umbilical hernia with large Ventralex ST hernia patch. 2. Intubation for respiratory failure, status post uncomplicated extubation. HOSPITAL COURSE: The patient originally presented to the hospital with abdominal pain on 05/08/2018. He was discovered on a CT scan of the belly to have an incarcerated ventral hernia. He was subsequ ently taken to the operating room that evening. The ventral hernia was reduced with mesh. Shortly b efore that, manual attempt at decompressing the hernia was made. He was given a significant amount o f pain medication which promoted his respiratory failure. He was subsequently intubated in the emerg ency department. Shortly after extubation, he was noted to have quite severe obstructive sleep apnea. We felt that th is was threatening and warranted initiation of noninvasive ventilation in an outpatient setting. His hospital stay was complicated by acute on chronic hypoxic and hypercapnic respiratory failure with a n infiltrate that was treated as a pneumonia. Ultimately, the patient's oxygen requirements went gigi n and he returned to room air. On the day of discharge, his vital signs were stable. On room air, h e was saturating 91%. We were able to set him up with CPAP for use in the outpatient setting. He is going to follow up with Dr. Stark. He will complete an additional 5 days of clindamycin per surgery 's direction. DISCHARGE CONDITION: Stable. DISPOSITION: Home. DISCHARGE MEDICATIONS: 1. Clindamycin 300 mg p.o. 3 times daily x5 days. 2. Lisinopril/hydrochlorothiazide 20/12.5 one tab p.o. daily. 3. Aspirin 81 mg p.o. daily. 4. Zyrtec 1 tab p.o. daily. DISCHARGE INSTRUCTIONS: The patient will return to the hospital, the emergency department for increa sing shortness of breath, chest discomfort, or fevers. He is going to follow up with Dr. Stark as forest steiner in clinic in 2 months. He has been instructed to bring his CPAP machine in with him.
== END 2018-05-16 11:27 | disposition home or self-care (01) | DRG 353 ==
LOC: ERS 10:27 → SDC 15:57 → CCU 19:40 → IMCU/EMU 05-11 20:38
PROVIDERS: ADMIT Internal Medicine Critical Care Medicine; ATTEND Internal Medicine Critical Care Medicine
PROC: 0BH17EZ Insertion of Endotracheal Airway into Trachea, Via Natural or Artificial Opening (ICD-10-PCS; principal; 2018-05-08)
PROC: 5A1945Z Respiratory Ventilation, 24-96 Consecutive Hours (ICD-10-PCS; 2018-05-08)
PROC: 0WUF0JZ Supplement Abdominal Wall with Synthetic Substitute, Open Approach (ICD-10-PCS; 2018-05-08)
DX: K42.9 Umbilical hernia without obstruction or gangrene (principal); J96.22 Acute and chronic respiratory failure with hypercapnia; J18.9 Pneumonia, unspecified organism; J96.21 Acute and chronic respiratory failure with hypoxia; J98.11 Atelectasis; L03.311 Cellulitis of abdominal wall; I10 Essential (primary) hypertension; E66.01 Morbid (severe) obesity due to excess calories; Z68.38 Body mass index [BMI] 38.0-38.9, adult; G47.33 Obstructive sleep apnea (adult) (pediatric); Z79.82 Long term (current) use of aspirin; T40.605A Adverse effect of unspecified narcotics, initial encounter
CPT/HCPCS: 31500; 36415; 36416; 51702; 71045; 71046; 74177; 80048; 80053; 81003; 81015; 82805; 83605; 83690; 85007; 85025; 85027; 88302; 93005; 94002; 94003; 94660; 96361; 96365; 96375; A4216; C1781; J0690; J1650; J2060; J2270; J2310; J2370; J2405; J2704; J2930; J3010; J7050; P9045

== ENCOUNTER 2019-10-29 19:50 | Inpatient (IN) | payer SELFPAY ==
[~2019-10-29 19:50] MED LIST: Iopamidol-370 76% 500 ML 1 ML ONE; Succinylcholine Chloride 20 MG/ML 10 ml SYRINGE FS ONE
--- NOTE | 2019-10-29 20:32 | RAD ---
Exam: Chest one view HISTORY:Hypoxia. Dyspnea. Comparison: 05/09/2018, 05/15/2018 FINDINGS: Cardiac silhouette:Cardiomegaly. Aorta: Unremarkable Pulmonary vessels: Slightly prominent. Costophrenic angles: Clear LUNGS: Patchy interstitial and alveolar opacities. Pneumothorax: None Osseous abnormalities: No acute osseous abnormalities. IMPRESSION: Congestive heart failure. Cardiomegaly. Pulmonary volume overload.
[2019-10-29 20:33] LABS: #Basophils 0.1 thou/uL (0.0-0.2); #Eosinphils 0.1 thou/uL (0.0-0.7); #Lymphocytes 1.8 thou/uL (1.20-3.40); #Monocytes 1.2 thou/uL (0.11-0.59); #Neutrophils 8.4 thou/uL (1.40-6.50); %Basophils 0.7 % (0.0-1.0); %Eosinophils 1.2 % (0.0-10.0); %Lymphocytes 15.3 % (21.0-51.0); %Monocytes 10.6 % (0.0-10.0); %Neutrophils 72.2 % (42.0-75.0); Hemoglobin 19.7 g/dL (14.0-18.0); Mean Corpuscular HGB CONC 31.1 g/dL (32.0-36.0); Mean Corpuscular Hemoglobin 29.1 pg (27.0-31.0); Mean Corpuscular Volume 93.5 fL (78.0-98.0); Mean Platelet Volume 9.4 fL (7.4-10.4); Platelet Count 169 thou/uL (130-400); Red Blood Cell (RBC) Count 6.78 mill/uL (4.70-6.10); White Blood Cell (WBC) Count 11.6 thou/uL (4.8-10.8)
[2019-10-29 20:47] LABS: ALT (SGPT) 37 U/L (8-55); AST (SGOT) 24 U/L (5-34); Albumin 3.5 g/dL (3.5-5.0); Alkaline Phosphatase 77 U/L (40-110); BUN (Urea Nitrogen) 25 mg/dL (8.4-25.7); Bilirubin, Total 0.7 mg/dL (0.2-1.2); CK (CPK) 123 U/L (30-200); Calc. Creatinine Clearance 0 mL/min (70-130); Calcium 9.4 mg/dL (7.8-10.44); Estimated GFR-MDRD 47; Globulin 3.5 g/dL (2.4-3.5); Glucose 141 mg/dL (70-105)
[2019-10-29 20:58] LABS: Anion Gap 16 mmol/L (10-20); Carbon Dioxide 34 mmol/L (22-29); Chloride 95 mmol/L (98-107); Potassium 4.3 mmol/L (3.5-5.1); Sodium 141 mmol/L (136-145)
[2019-10-29] MEDS ORDERED: Nitroglycerin 2% Ointment 1 INCH/1 GM Packet ONE (21:01)
[2019-10-29] MEDS ORDERED: Furosemide 40 MG/4 ML VIAL ONE (21:01)
--- NOTE | 2019-10-29 21:07 | CT ---
Exam: CT angiogram of the chest HISTORY: Cough intermittent since Clifford. Worsening shortness of breath today. COMPARISON: None TECHNIQUE: CT angiogram of the chest is performed in the axial plane. Three-dimensional reformatted i mages are submitted for interpretation FINDINGS: Mediastinum: Posterior mediastinal lymph node, mildly enlarged measuring 1.4 x 2.4 cm. No mediastinal mass or hematoma. HEART: Markedly large cardiac silhouette. No significant pericardial fluid. Aorta: No aneurysm or dissection Upper solid abdominal viscera: No abnormality enhancement. Trachea and central bronchi: Patent Pleural spaces: No effusion Lung parenchyma: There are patchy linear opacities in the lung parenchyma which may represent areas o f scarring and atelectasis. There are ill-defined groundglass opacities scattered throughout the lung parenchyma which may represent areas of atypical infection. These opacities have a somewhat irre gular margination. [employer] opacity in the right upper lobe measures 0.7 x 1.1 cm. Opacity in the right lower lobe measures 0.9 x 0.6 cm. Irregular marginated opacity in the left upper lobe measu res 0.9 x 1.1 cm. Pneumothorax: None Osseous structures: Multiple old right rib fractures are noted. Pulmonary arteries:Limited evaluation the pulmonary arterial system due to timing of bolus. There is adequate contrast opacification of the central pulmonary arteries in the proximal lobar arteries. No filling defect to suggest thromboembolism to this level. Remaining pulmonary arteries, segmental a rteries and subsegmental arteries cannot be adequately assessed. IMPRESSION: 1. No evidence of pulmonary arterial system to the level of the proximal lobar arteries. 2. Patchy groundglass opacities with irregular margination noted in the lung parenchyma, which may re present areas of atypical infection. Short-term follow-up [address] is recommended after appropriate medical management Transcribed Date/Time: 10/29/2019 9:11 PM
[2019-10-29 21:52] LABS: Bacteria/HPF None Seen HPF (None Seen); Bilirubin Negative (Negative); Blood, Urine 1+ (Negative); Clarity Clear (Clear); Glucose, Urine (Dipstick) Normal (Negative); Leukocyte Negative Leu/uL (Negative); Nitrite Negative (Negative); Protein, Urine (Dipstick) 100 mg/dL (Neg-Trace); RBC/HPF 0-3 HPF (0-3); Squamous Epithelial 0-3 HPF (0-3); Urobilinogen Normal mg/dL (Less than 2)
[2019-10-29] MEDS ORDERED: cefTRIAXone\\ROCEPHIN 2 GM VIAL ONE (22:05)
[2019-10-29] MEDS ORDERED: Azithromycin 500 MG in Sodium Chloride 0.9% 250 ML 250 ML IVPB SCH (22:30)
[2019-10-29] MEDS ORDERED: Ondansetron ODT 4 MG TAB SL PRN (23:31)
[2019-10-29] MEDS ORDERED: Ondansetron PF 4 MG/2 ML Vial IVP PRN (23:31)
[2019-10-30 01:31] LABS: Calcium, Ionized 1.22 mmol/L (1.12-1.30); Hemoglobin (Hb) 21.2 g/dL (14.0-18.0); O2 Tension (PaO2) 79.2 mmHg (80.0-100.0); Potassium - ABG Lab 4.67 mmol/L (3.70-5.30)
[2019-10-30] MEDS ORDERED: Furosemide 40 MG/4 ML VIAL SLOW IVP SCH ×3 (01:45→09:00)
[2019-10-30] MEDS ORDERED: Lorazepam 2 MG/ML VIAL ONE (02:00)
[2019-10-30] MEDS ORDERED: Propofol BOLUS 1,000 MG/100 ML VIAL IV PRN (02:02)
[2019-10-30] MEDS ORDERED: Lorazepam 2 MG/ML VIAL SLOW IVP PRN ×2 (02:02→03:15)
[2019-10-30] MEDS ORDERED: Fentanyl BOLUS 250 ML IVPB PRN (02:02)
[2019-10-30] MEDS ORDERED: DISCONTINUE PREVIOUS NARCOTIC PAIN MEDICATIONS AND BENZODIAZEPINES FS SCH (02:02)
[2019-10-30] MEDS: Propofol 1,000 MG/100 ML VIAL IV PRN ×2 (02:05→06:26)
[2019-10-30] MEDS ORDERED: Succinylcholine Chloride 20 MG/ML 10 ml SYRINGE FS SCH (02:15)
[2019-10-30] MEDS: fentaNYL Citrate/PF 2,000 MCG in Sodium Chloride 0.9% 60 ML IV SCH (02:16)
[2019-10-30 02:19] LABS: #Basophils 0.1 thou/uL (0.0-0.2); #Eosinphils 0.1 thou/uL (0.0-0.7); #Lymphocytes 1.9 thou/uL (1.20-3.40); #Monocytes 0.9 thou/uL (0.11-0.59); #Neutrophils 8.5 thou/uL (1.40-6.50); %Basophils 0.5 % (0.0-1.0); %Eosinophils 0.6 % (0.0-10.0); %Lymphocytes 16.6 % (21.0-51.0); %Monocytes 8.1 % (0.0-10.0); %Neutrophils 74.3 % (42.0-75.0); Mean Corpuscular HGB CONC 30.9 g/dL (32.0-36.0); Mean Corpuscular Hemoglobin 28.9 pg (27.0-31.0); Mean Corpuscular Volume 93.6 fL (78.0-98.0); Mean Platelet Volume 9.4 fL (7.4-10.4); Platelet Count 184 thou/uL (130-400); RBC Distribution Width 13.8 % (11.5-14.5); Red Blood Cell (RBC) Count 6.93 mill/uL (4.70-6.10); White Blood Cell (WBC) Count 11.4 thou/uL (4.8-10.8)
--- NOTE | 2019-10-30 02:29 | HP ---
PRIMARY CARE PHYSICIAN: [facility]. CHIEF COMPLAINT: Shortness of breath x4 weeks, worsening times days. HISTORY OF PRESENT ILLNESS: This is a 59-year-old morbidly obese male with past medical history of obstructive sleep apnea, noncompliant on CPAP, hypertension, diabetes, dyslipidemia, who presented to [facility] ER for worsening shortness of breath for four weeks duration that worsened in the past several days associated with lower extremity edema, decreased functional status, and labored respirations. According to patient's spouse, the patient began to feel ill around [place] time and initially thought he had flu-like symptoms. In the past several weeks, he has been through multiple bottles of DayQuil without any symptom relief. The symptoms continue to worsen, but exacerbated in the last 4 to 5 days. In the emergency room, he was reported to have initial pulse oximetry of 77% on room air and was placed on oxygen nasal cannula 4 L with oxygen saturations of only 90%. Initial troponin was mildly elevated at 0.055 in the absence of any anginal complaints. BNP was elevated at 650. Labs revealed erythrocytosis with H and H of 19.7/63.4, and chemistries reveal BUN and creatinine of 25/1.54, GFR 47. CTA was negative for pulmonary embolism, but revealed patchy ground-glass opacities in the lung parenchyma. A chest x-ray, one-view, revealed congestive heart failure changes with pulmonary volume overload. The patient was administered 80 mg IV push Lasix, 1 inch Nitro -Bid paste, 500 mg IV Zithromax, 2 g IV Rocephin, and admitted to [facility] on BiPAP. Upon evaluation, the patient at bedside in the IMCU. The patient was unresponsive to verbal and noxious stimuli, and diaphoretic. It is noted that the respiratory therapist recently increased the patient's BiPAP settings due to poor lung volumes of approximately 200 to 300 mL. A stat Accu-Chek was obtained, which was 151. A stat ABG was obtained with CO2 greater than 120, and ER physician was called for emergent intubation. Spouse who is at bedside reports that the patient is generally a light sleeper. He has not been given any sedatives or psychotropic medications. She notes he has had a history of prior ventilator dependence two years ago, requiring one week on the mechanical ventilator. PAST MEDICAL HISTORY: Morbid obesity, noncompliance with CPAP, obstructive sleep apnea, hypertension, type 2 diabetes mellitus, dyslipidemia, prior ventilator dependence. PAST SURGICAL HISTORY: Herniorrhaphy. SOCIAL HISTORY: The patient is , lives with his spouse. No reported illicit habits. The patient does not use home oxygen. The patient has a home CPAP machine, which he does not use. ALLERGIES: NONE REPORTED. REVIEW OF SYSTEMS: Unable to obtain as patient is obtunded. HOME MEDICATIONS: Will be reviewed as per admission medication reconciliation. FAMILY HISTORY: Unable to obtain from patient at this time and he is obtunded. PHYSICAL EXAMINATION: GENERAL: This is a middle-aged obese male, who is on BiPAP, minimally responsive with noxious stimuli and diaphoretic in appearance. HEENT: Normocephalic, atraumatic. Pupils are equally round. The patient is on BiPAP. Scalp notably diaphoretic. CARDIOVASCULAR: S1 and S2. Regular rate and rhythm. No harsh murmurs. No chest wall tenderness. LUNGS: Decreased inspiratory effort with limited evaluation. Coarse breath sounds. No appreciable wheezing. ABDOMEN: Soft, obese, nontender, and nondistended. EXTREMITIES: There is lower extremity pitting edema noted. No cyanosis or deformities noted. SKIN: Warm to touch without rash or pallor or abrasion. There is diaphoresis of skin noted. LABORATORY VALUES: Sodium 141, potassium 4.3, chloride 95, bicarb 34, glucose 141, BUN and creatinine are 25/1.54, GFR 47. LFTs unremarkable. Lactic acid 1.3. BNP of 650.8. Troponin I negative x2. WBC 11.6, H and H 19.7/63.4, platelets 169. Urinalysis reveals specific gravity of 1.045, 100 protein, 1+ blood, 4 to 6 white blood cells. Stat ABG results pending, but with PaCO2 reported to be greater than 120. IMAGING: One-view chest x-ray done in the ER personally reviewed reveals findings consistent with pulmonary volume overload and congestive heart failure with noted cardiomegaly and patchy interstitial and alveolar opacities. CTA chest and thorax on 10/29/2019, reveals no evidence of PE to the proximal lower arteries. Patchy ground-glass opacities with irregular margination in the lung parenchyma, which may represent areas of atypical infection with short-term followup in three months recommended. ASSESSMENT: 1. Acute on probable chronic hypoxic hypercapnic respiratory failure requiring emergent ventilator dependence. Likely multifactorial etiology including congestive heart failure, obstructive sleep apnea, and possible infectious etiologies. The patient was initially admitted to the [facility], but required emergent intubation ER physician during my evaluation and assessment. He will be upgraded to ICU. We will consult on-call mining engineer. We will await ABG and continue ventilator to maintain appropriate acid-base status. Continue IV loop diuretics with Lasix 40 mg every 8 hours, monitor I's and O's, continue antibiotics. 2. Acute metabolic encephalopathy secondary to hypoxia and hypercapnia. The patient is obtunded and minimally arousable. He will be emergently intubated for airway protection. Continue mechanical ventilator for proper oxygenation and ventilation. We will consult on-call mining engineer for ventilator management. 3. Acute congestive heart failure exacerbation of unspecified etiology. Continue aggressive IV loop diuretics. Obtain transthoracic echocardiogram to evaluate for cardiac, structural, and valvular abnormalities. Rule out acute coronary syndrome. Elevated troponin. Suspect secondary to profound hypoxia and likely type 2 myocardial infarction. 4. Erythrocytosis of unspecified etiology. Likely secondary from chronic hypoxia and severe obstructive sleep apnea. Monitor hematocrit. 5. Possible pneumonia. Continue empiric IV antibiotics. Biomedical Manager consulted. 6. Obstructive sleep apnea, noncompliant with home CPAP. The patient will require compliance counseling once coherent. 7. Hypertension, benign. 8. Dyslipidemia. 9. Type 2 diabetes mellitus. Monitor Accu-Cheks. 10. Morbid obesity, BMI 47. 11. Gastrointestinal prophylaxis with Pepcid. Deep venous thrombosis prophylaxis. Lovenox. Code status: Full code. Check a.m. labs, 10/30/2019. Disposition: The patient admitted as inpatient status to ICU. Critical care time 45 minutes. Job ID: [id number] [facility]
[2019-10-30 02:44] LABS: Anion Gap 19 mmol/L (10-20); BUN (Urea Nitrogen) 25 mg/dL (8.4-25.7); Calc. Creatinine Clearance 91 mL/min (70-130); Calcium 9.2 mg/dL (7.8-10.44); Carbon Dioxide 30 mmol/L (22-29); Chloride 95 mmol/L (98-107); Estimated GFR-MDRD 43; Glucose 164 mg/dL (70-105); Magnesium 1.8 mg/dL (1.6-2.6); Potassium 5.1 mmol/L (3.5-5.1); Sodium 139 mmol/L (136-145)
[2019-10-30 02:49] LABS: Actual Bicarbonate (HCO3a) 35.3 mEq/L (22-28); Base Excess (BEa) 6.4 mEq/L (-2.0 to +3.0); Calcium, Ionized 1.16 mmol/L (1.12-1.30); Carboxyhemoglobin (COHb) 1.2 gm% (0.0-3.0); Hemoglobin (Hb) 19.8 g/dL (14.0-18.0); pH, Arterial 7.35 (7.35-7.45)
[2019-10-30 02:51] LABS: O2 Tension (PaO2) 52.6 mmHg (80.0-100.0)
[2019-10-30] MEDS ORDERED: Norepinephrine 8 MG/0.9% NS 0 ML ONE (02:56)
[2019-10-30] MEDS ORDERED: Sodium Chloride 0.9% 500 ML IV SCH (03:15)
[2019-10-30 03:51] LABS: CKMB 4.1 ng/mL (0-6.6)
--- NOTE | 2019-10-30 07:56 | RAD ---
PORTABLE CHEST: HISTORY: Assess ET tube placement. On ventilator. CCU followup. COMPARISON: 10/29/2019. FINDINGS: Cardiomegaly with vascular congestion. ET tube and NG tube are noted in place. ET tube has tip abov e the sonja. IMPRESSION: Cardiomegaly with vascular congestion. ET tube has tip just above the sonja. POS: [facility]
[2019-10-30] MEDS ORDERED: Acetaminophen 325 MG TAB PO PRN (08:41)
[2019-10-30] MEDS ORDERED: Acetaminophen 650 MG Suppository PR PRN (08:41)
[2019-10-30] MEDS ORDERED: Acetaminophen 650 MG/20.3 ML UDCUP PO PRN (08:41)
[2019-10-30] MEDS: Cefepime 2 GM in Sodium Chloride 0.9% 100 ML IVPB SCH ×2 (09:26→20:22)
[2019-10-30] MEDS ORDERED: Norepinephrine 8 MG/0.9% NS 250 ML IVPB SCH (14:20)
--- NOTE | 2019-10-30 15:50 | CON ---
DATE OF CONSULTATION: 10/30/2019 REASON FOR CONSULTATION: Heart failure. HISTORY OF PRESENT ILLNESS: Mr. Culp is a pleasant 59-year-old gentleman, who comes to the hospital for worsening shortness of breath. He has noticed worsening shortness of breath for the last 4 days. He finally decided to come into the ER as he has become significantly worse in the last week. Initially, his oxygen saturations were about 77%, so he was placed on oxygen supplementation that eventually had to be increased all the way up to intubation. Initial evaluation showed significant bilateral pulmonary edema consistent with heart failure, unclear if this is systolic or diastolic. He was admitted and Cardiology was consulted for further evaluation and care. On my evaluation, he is intubated and sedated and cannot answer any questions. PAST MEDICAL HISTORY: 1. Morbid obesity. 2. Severe obstructive sleep apnea. 3. Noncompliance with CPAP. 4. Hypertension. 5. Type 2 diabetes. 6. Hyperlipidemia. PAST SURGICAL HISTORY: Herniorrhaphy. SOCIAL HISTORY: No alcohol, tobacco, or drugs per chart review. ALLERGIES: NO KNOWN DRUG ALLERGIES. MEDICATIONS: Outpatient medications; 1. Lisinopril-hydrochlorothiazide 20/12.5 mg daily. 2. Clindamycin. 3. Cetirizine. 4. Aspirin 81 a day. These are not confirmed. REVIEW OF SYSTEMS: Unobtainable as the patient is sedated and intubated. PHYSICAL EXAMINATION: VITAL SIGNS: Temperature 99.1 as high as 102.5 earlier today, respiratory rate 20, saturating 92% on 50% FiO2, blood pressure 97/66. GENERAL: Sedated and intubated. HEENT: Normocephalic. NECK: Supple. LUNGS: Coarse breath sounds anteriorly and bilaterally. CARDIOVASCULAR: S1 and S2. No S3 or S4. There is a very soft grade 2/6 systolic murmur at the right upper sternal border. ABDOMEN: Soft. EXTREMITIES: 1+ edema. SKIN: Warm and dry. LABORATORY DATA: Laboratory work was reviewed. CBC with a white count of 11.4, hemoglobin of 20, hematocrit of 64.9, platelet count of a 184. ABG was reviewed, pH of 7.35, CO2 of 65, and PO2 of 52. Chemistry shows a creatinine of 1.5, has gone up to 1.66, GFR of 43. Troponin was 0.05, 0.04, and then 0.05 with normal CK-MBs, normal calcium and magnesium. BNP was 650. UA was 1+ blood, 4 to 6 white cells. DIAGNOSTIC DATA: Chest x-ray was reviewed, shows a bilateral pulmonary edema. CT of the chest showed no pulmonary embolism. There is patchy ground-glass opacities bilaterally with irregular margination possibly representing areas of atypical infection. EKG was reviewed. Telemetry was reviewed. ASSESSMENT/PLAN: 1. Acute on chronic diastolic heart failure. 2. Severe obstructive sleep apnea with noncompliance. 3. Mildly dilated right ventricle with mildly reduced RV systolic function. 4. Fevers. 5. Elevated hemoglobin. 6. Possible high-output heart failure given his hemoglobin, however, this could also be related to severe pulmonary hypertension and sleep apnea. 7. Type 2 demand ischemia type of PA. 8. Acute hypoxic hypercapnic respiratory insufficiency requiring mechanical ventilation. PLAN: 1. Agree with IV diuresis. 2. Also agree with phlebotomies to make this hemoglobin lower. 3. There is certainly a component of heart failure on the x-ray, but would keep in mind consideration for this being a septic-type picture with this episode of chest pain. Would rule out fluid, if it has not been done so already. Thank you for letting us to participate in the care of your patient. We will follow. 45 minutes of critical care time. Job ID: [id number]
[2019-10-30] MEDS: Enoxaparin Sodium 40 MG/0.4 ML SYRINGE SC SCH (20:22)
[2019-10-30] MEDS: Famotidine 20 MG TAB PO SCH (20:22)
[2019-10-30] MEDS: Famotidine/PF 20 mg/2ml Vial SLOW IVP SCH (20:22)
[2019-10-30] MEDS ORDERED: cefTRIAXone\\ROCEPHIN 1 GM in Sodium Chloride 0.9% 100 ML IVPB SCH (22:00)
--- NOTE | 2019-10-30 22:58 | CON ---
DATE OF CONSULTATION: HISTORY OF PRESENT ILLNESS: Mr. Culp is a 59-year-old male. According to his significant other, he is totally noncompliant with any routine health care issues. He will not wear CPAP. He will not stay on a diet. He will cook what he eats that is semi-healthy. She says he constantly complains about the food when he is presented with a meal that is a healthy meal for diabetic with hypertension and obesity. He presented with several weeks of shortness of breath and subsequently was intubated. He had a very impressive erythrocytosis with a hematocrit of essentially 64. He has subsequently been admitted to the critical care unit. Chest radiograph and CT are suggestive of mild pulmonary edema. PAST MEDICAL HISTORY: Remarkable for; 1. Obesity. 2. Obstructive sleep apnea that is severe. She says his saturations fall into the 70% range when he is asleep. 3. History of hypertension. 4. Diabetes. 5. Lipid disorder. 6. History of prolonged mechanical ventilation in the past. 7. History of herniorrhaphy. SOCIAL HISTORY: He is a nonsmoker, nondrug user. Nondrinker. ALLERGIES: THERE ARE NO ALLERGIES. REVIEW OF SYSTEMS: Not obtainable because of his intubation. PHYSICAL EXAMINATION: VITAL SIGNS: Respiratory rate is 20, FiO2 is 45%. Heart rate is in the 70s, blood pressure 107/69. HEAD AND NECK: Remarkable for obesity. LUNGS: Distant clear. HEART: Regular rhythm. S1 and S2 are distant. ABDOMEN: Soft, massive and protuberant. EXTREMITIES: Without clubbing. He has 3+ pitting edema with stasis changes on both lower extremities. LABORATORY DATA: White count 11.4, hematocrit 64.9, platelets 194,000. Sodium 139, potassium 5.1, chloride 95, bicarb 30, BUN 25, creatinine 1.66. Creatinine was 1.54 yesterday. Glucose 142. IMPRESSION: Untreated obesity hypoventilation syndrome with respiratory failure. Blood gas today shows a pH of 7.35, CO2 of 65, PO2 of 52. I met with his significant other and explained that virtually every issue we are dealing with at this point in time is related to his noncompliance with weight loss, noncompliance with dietary restrictions for his diabetes and noncompliance with CPAP. Echocardiogram was done today and Cardiology was consulted. He has diastolic dysfunction, left ventricular hypertrophy and mitral regurgitation. He will be gently diuresed. He will also require phlebotomy every day. His erythrocytosis is undoubtedly related to untreated severe sleep apnea. I have explained to his significant other that he may require tracheostomy to survive this. We will continue with aggressive care. CRITICAL CARE TIME: 35 minutes. Job ID: [id number]
[2019-10-30] MEDS ORDERED: Azithromycin 500 MG in Sodium Chloride 0.9% 250 ML 250 ML IVPB SCH (23:00)
[2019-10-31] MEDS: fentaNYL Citrate/PF 2,000 MCG in Sodium Chloride 0.9% 60 ML IV SCH ×2 (02:41→22:55)
[2019-10-31 04:08] LABS: Actual Bicarbonate (HCO3a) 32.2 mEq/L (22-28); Base Excess (BEa) 7.9 mEq/L (-2.0 to +3.0); CO2 Tension 42.5 mmHg (35.0-45.0); Calcium, Ionized 1.12 mmol/L (1.12-1.30); Carboxyhemoglobin (COHb) 0.5 gm% (0.0-3.0); Hemoglobin (Hb) 19.7 g/dL (14.0-18.0)
[2019-10-31 04:11] LABS: O2 Tension (PaO2) 52.7 mmHg (80.0-100.0)
[2019-10-31 04:12] LABS: #Eosinphils 0.1 thou/uL (0.0-0.7); #Lymphocytes 1.4 thou/uL (1.20-3.40); #Monocytes 1.1 thou/uL (0.11-0.59); #Neutrophils 6.5 thou/uL (1.40-6.50); %Basophils 0.2 % (0.0-1.0); %Eosinophils 0.8 % (0.0-10.0); %Lymphocytes 15.1 % (21.0-51.0); %Monocytes 12.5 % (0.0-10.0); %Neutrophils 71.4 % (42.0-75.0); Hemoglobin 18.9 g/dL (14.0-18.0); Mean Corpuscular HGB CONC 32.1 g/dL (32.0-36.0); Mean Corpuscular Volume 90.3 fL (78.0-98.0); Mean Platelet Volume 9.7 fL (7.4-10.4); Platelet Count 164 thou/uL (130-400); Red Blood Cell (RBC) Count 6.52 mill/uL (4.70-6.10); White Blood Cell (WBC) Count 9.1 thou/uL (4.8-10.8)
[2019-10-31 04:12] LABS: ALV-art Gradient 357.625 (0-20); Puncture Site LBR
[2019-10-31 04:43] LABS: Anion Gap 16 mmol/L (10-20); BUN (Urea Nitrogen) 37 mg/dL (8.4-25.7); Calc. Creatinine Clearance 86 mL/min (70-130); Calcium 8.9 mg/dL (7.8-10.44); Carbon Dioxide 33 mmol/L (22-29); Chloride 98 mmol/L (98-107); Estimated GFR-MDRD 42; Glucose 130 mg/dL (70-105); Magnesium 1.6 mg/dL (1.6-2.6); Potassium 3.6 mmol/L (3.5-5.1); Sodium 143 mmol/L (136-145)
[2019-10-31 05:34] LABS: CO2 Tension 122.2 mmHg (35.0-45.0)
[2019-10-31 05:35] LABS: Puncture Site RRA
[2019-10-31] MEDS ORDERED: Magnesium 2 GM/50 ML 2 GM in Premix Bag 1 BAG IVPB SCH (07:30)
[2019-10-31] MEDS: Cefepime 2 GM in Sodium Chloride 0.9% 100 ML IVPB SCH (09:07)
[2019-10-31] MEDS: Famotidine/PF 20 mg/2ml Vial SLOW IVP SCH ×2 (09:08→20:31)
--- NOTE | 2019-10-31 10:05 | PRG ---
DATE OF SERVICE: 10/31/2019 SUBJECTIVE: Mr. Culp awakens and nods appropriately, moves all his extremities. OBJECTIVE: VITAL SIGNS: Heart rate is in the 90s, respiratory rate is 20, oximetry is in the low 90s, blood pressure 106/73. LUNGS: Remarkable for coarse equal breath sounds. HEART: Regular rhythm. ABDOMEN: Soft. EXTREMITIES: Without clubbing, cyanosis, or edema. LABORATORY DATA: White count 9.1, hematocrit is down to 58. He will have another phlebotomy today. Sodium 143, potassium 3.6, chloride 98, bicarb 33, BUN 37, creatinine 1.7. PH 7.5, CO2 of 42, PO2 of 52. His ventilatory rate has been decreased today. IMPRESSION: Respiratory failure associated with untreated sleep apnea, morbid obesity, and chronic severe hypoxemia leading to an erythrocytosis. His hematocrit is improved with phlebotomy and he will have another phlebotomy today. He appears to be stable. I met with the yesterday and explained at length it will take some time to get him to a point we can safely extubate him. The big question to be answered is whether or not he would benefit from a tracheostomy since he absolutely refuses to wear CPAP. He will have another phlebotomy today. He does have diastolic dysfunction. Check a chest x-ray tomorrow and continue with current care. He could be started on some trickle nutrition through his gastric tube. Job ID: [id number]
[2019-10-31] MEDS: Famotidine 20 MG TAB PO SCH ×2 (10:16→20:31)
--- NOTE | 2019-10-31 15:06 | PDOC.CPN ---
- Subjective Date: 10/31/19 Time: 15:05 Interval history: He remains sedated intubated. - Review of Systems ROS unobtainable: due to endotracheal tube - Objective Allergies/Adverse Reactions: Allergies Allergy/AdvReac Type Severity Reaction Status Date / Time morphine Allergy Severe Verified 10/30/19 06:23 Visit Medications: Current Medications Acetaminophen (Tylenol) 650 mg PO Q4H PRN PRN Reason: Headache/Fever or Mild Pain Acetaminophen (Tylenol Elixir) 650 mg PO Q4H PRN PRN Reason: pain/fever Last Admin: 10/30/19 09:26 Dose: 650 mg Acetaminophen (Tylenol) 650 mg NE Q4H PRN PRN Reason: Headache/Fever or Pain Enoxaparin Sodium (Lovenox) 40 mg SC 2100 [facility] Last Admin: 10/30/19 20:22 Dose: 40 mg Famotidine (Pepcid) 20 mg PO BID [facility] Last Admin: 10/31/19 10:16 Dose: Not Given Famotidine (Pepcid) 20 mg SLOW IVP BID [facility] Last Admin: 10/31/19 09:08 Dose: 20 mg Azithromycin 500 mg/ Sodium (Chloride) 250 mls @ 250 mls/hr IVPB Q24HR [facility] Last Admin: 10/30/19 22:10 Dose: 250 mls Fentanyl Citrate 2,000 mcg/ (Sodium Chloride) 100 mls @ 0 mls/hr IV INF [facility]; Protocol Stop: 11/29/19 02:02 Last Admin: 10/31/19 02:41 Dose: 100 mls Fentanyl Citrate (Fentanyl Bolus) 250 mls @ 0 mls/hr IVPB PRN PRN PRN Reason: Breakthrough pain/agitation Stop: 11/29/19 02:02 Cefepime HCl 2 gm/ Sodium (Chloride) 100 mls @ 200 mls/hr IVPB Q12HR [facility] Last Admin: 10/31/19 09:07 Dose: 100 mls Norepinephrine Bitartrate (Levophed) 250 mls @ 0 mls/hr IVPB INF [facility]; Protocol Last Admin: 10/30/19 15:11 Dose: 250 mls Lorazepam (Ativan) 1 mg SLOW IVP Q1H PRN PRN Reason: Breakthrough agitation Stop: 11/29/19 02:02 Miscellaneous Medication (Pharmacy To Dose) 1 each IVPB PRN PRN PRN Reason: Pharmacy to dose Propofol (Diprivan) 1,000 mg IV INF PRN; Protocol PRN Reason: TO ACHIEVE GOAL RASS Stop: 11/29/19 02:02 Last Admin: 10/30/19 06:26 Dose: 1,000 mg Propofol (Diprivan Bolus) 20 mg IV Q5MIN PRN PRN Reason: BREAKTHROUGH AGITATION Stop: 11/29/19 02:02 Sodium Chloride (Flush - Normal Saline) 10 ml IVF PRN PRN PRN Reason: Saline Flush Last Admin: 10/31/19 09:08 Dose: 10 ml Vital Signs & Weight: Vital Signs Temp Pulse Resp Pulse Ox 10/31/19 14:00 15 10/31/19 13:20 80 10/31/19 12:00 98.8 F 16 10/31/19 11:02 90 10/31/19 10:00 15 10/31/19 08:12 92 10/31/19 08:00 16 93 L 10/31/19 07:00 99.3 F 10/31/19 06:00 20 10/31/19 04:00 98.4 F 20 Admit Weight 287 lb 11.252 oz Weight 280 lb 6.848 oz - Physical Exam General: other (S/I) HEENT: mucus membranes moist Neck: supple neck Cardiac: regular rate and rhythm, no murmur Lungs: scattered rhonchi Neuro: no lateralizing findings Abdomen: active bowel sounds Extremities: no edema Skin: clear Musculoskeletal: no pain - Labs Result Diagrams: 10/31/19 03:15 10/31/19 03:15 Troponin/CKMB CK-MB (CK-2) 4.1 ng/mL (0-6.6) 10/30/19 02:06 Troponin I 0.056 ng/mL (< 0.028) H 10/30/19 02:06 - Telemetry Sinus rhythms and dysrhythmias: sinus rhythm - Assessment/Plan Assessment/Plan: 1. Acute hypoxic, hypercapnic respiratory insufficiency 2. Erythrocytosis 3. Acute on chronic diastolic heart failure. 4. Obesity 5. Sleep apnea 6. Non compliance 7. Type 2 IN, demand ischemia PLAN: - Continue supportive care. - Continue to try to wean ventilator. - Agree with holding diuresis for now. - Off pressor support. - Fever has resolved and has not recurred since yesterday. - Restart Lasix tomorrow if BP allows. - Discussed with family at bedside. - Critical Care Time Critical care time (mins): 45
--- NOTE | 2019-10-31 19:56 | PDOC.HOSPP ---
- Subjective Encounter Date: 10/31/19 Encounter Time: 12:30 non-verbal Subjective: Patient seen and examined for resp failure - on Vent. Off pressors. No overnight events - Objective Vital Signs & Weight: Vital Signs (12 hours) Temp Pulse Resp BP Pulse Ox 10/31/19 18:00 12 10/31/19 16:00 98.5 F 15 10/31/19 15:36 86 106/62 10/31/19 14:00 15 10/31/19 13:20 80 10/31/19 12:00 98.8 F 16 10/31/19 11:02 90 10/31/19 10:00 15 10/31/19 08:12 92 10/31/19 08:00 16 93 L Weight Admit Weight 287 lb 11.252 oz Weight 280 lb 6.848 oz Most Recent Monitor Data Heart Rate from ECG 82 NIBP 121/75 NIBP BP-Mean 90 Respiration from ECG 14 SpO2 95 I&O: 10/30/19 10/31/19 11/01/19 06:59 06:59 06:59 Intake Total 958.5 582 338 Output Total 1875 2125 400 Balance -916.5 -1543 -62 Result Diagrams: 10/31/19 03:15 10/31/19 03:15 Additional Labs: Accuchecks 10/30/19 20:24 POC Glucose 142 H Microbiology 10/29/19 20:39 Venous blood - Right Hand Blood Culture - Preliminary NO GROWTH AT 48 HOURS 10/29/19 20:38 Venous blood - Left Hand Blood Culture - Preliminary NO GROWTH AT 48 HOURS Radiology Reviewed by me: Yes (CXR - CHF) EKG Reviewed by me: Yes (Tele SR) Hospitalist ROS - Review of Systems ROS unobtainable: due to endotracheal tube - Medication Medications: Active Medications Generic Name Dose Route Start Last Admin Trade Name Freq PRN Reason Stop Dose Admin Acetaminophen 650 mg 10/30/19 08:41 10/30/19 09:26 Tylenol Elixir PO 650 mg Q4H PRN Administration pain/fever Enoxaparin Sodium 40 mg 10/30/19 21:00 10/30/19 20:22 Lovenox SC 40 mg 2100 SON[facility] Administration Famotidine 20 mg 10/30/19 21:00 10/31/19 10:16 Pepcid PO Not Given BID SONIA Famotidine 20 mg 10/30/19 21:00 10/31/19 09:08 Pepcid SLOW IVP 20 mg BID SONIA Administration Azithromycin 500 mg/ Sodium 250 mls @ 250 mls/hr 10/30/19 23:00 10/30/19 22: 10 Chloride IVPB 250 mls Q24HR SONIA Administration Fentanyl Citrate 2,000 mcg/ 100 mls @ 0 mls/hr 10/30/19 02:02 10/31/19 02:41 Sodium Chloride IV 11/29/19 02:02 100 mls INF SONIA Administration Protocol Per Protocol Cefepime HCl 2 gm/ Sodium 100 mls @ 200 mls/hr 10/30/19 09:00 10/31/19 09:07 Chloride IVPB 100 mls Q12HR SONIA Administration Norepinephrine Bitartrate 250 mls @ 0 mls/hr 10/30/19 14:20 10/30/19 15:11 Levophed IVPB 250 mls INF SONIA Administration Protocol Titrate Propofol 1,000 mg 10/30/19 02:02 10/30/19 06:26 Diprivan IV 11/29/19 02:02 1,000 mg INF PRN Administration TO ACHIEVE GOAL RASS Protocol Sodium Chloride 10 ml 10/29/19 23:31 10/31/19 09:08 Flush - Normal Saline IVF 10 ml PRN PRN Administration Saline Flush - Exam General Appearance: NAD (on Vent) Heart: RRR, no gallops, no rubs, normal peripheral pulses Respiratory: no wheezes, normal chest expansion, rales, rhonchi Gastrointestinal: soft, normal bowel sounds, no palpable masses, no guarding, no rigidity Neurological - other findings: Neuro/Psych - Cannot assess due to sedation Hosp A/P - Plan DVT proph w/lovenox Acute hypoxic/hypercapneic respiratory failure - on Mech Vent Acute on chronic diastolic heart failure - Diuretics on hold due to hypotension Toxic Metabolic Encephalopathy Morbid Obesity BMI 46.7 PRASHANTH/Obesity hypoventilation syndrome Type 2 TN - POA - resolved Erythrocytosis s/p phlebotomy PLAN: Cont Vent support DC Atbx Off pressors Cont supportive care AM labs CXR in AM Echo reviewed Cont other meds as above
[2019-10-31] MEDS: Enoxaparin Sodium 40 MG/0.4 ML SYRINGE SC SCH (20:31)
[2019-11-01 04:32] LABS: Anion Gap 11 mmol/L (10-20); BUN (Urea Nitrogen) 31 mg/dL (8.4-25.7); Calc. Creatinine Clearance 113 mL/min (70-130); Calcium 8.5 mg/dL (7.8-10.44); Carbon Dioxide 35 mmol/L (22-29); Chloride 99 mmol/L (98-107); Estimated GFR-MDRD 57; Glucose 131 mg/dL (70-105); Magnesium 2.4 mg/dL (1.6-2.6); Potassium 4.2 mmol/L (3.5-5.1); Sodium 141 mmol/L (136-145)
[2019-11-01 06:29] LABS: Band 1 % (5-11); Eosinophils 5 % (0-10); Hemoglobin 18.9 g/dL (14.0-18.0); Lymphocytes 8 % (21-51); MDiff Complete? YES; Mean Corpuscular HGB CONC 30.9 g/dL (32.0-36.0); Mean Corpuscular Hemoglobin 28.6 pg (27.0-31.0); Mean Corpuscular Volume 92.4 fL (78.0-98.0); Mean Platelet Volume 9.4 fL (7.4-10.4); Monocytes 9 % (0-10); Neutrophil 77 % (42-75); Platelet Count 147 thou/uL (130-400); Platelet Morphology Comment Appears Adequate; Red Blood Cell (RBC) Count 6.61 mill/uL (4.70-6.10); White Blood Cell (WBC) Count 10.7 thou/uL (4.8-10.8)
[2019-11-01 06:58] LABS: Puncture Site RBA
[2019-11-01 07:42] LABS: pH, Arterial 7.33 (7.35-7.45)
[2019-11-01 07:43] LABS: Actual Bicarbonate (HCO3a) 32.8 mEq/L (22-28); CO2 Tension 64.3 mmHg (35.0-45.0); O2 Tension (PaO2) 77.4 mmHg (80.0-100.0)
[2019-11-01 07:44] LABS: Carboxyhemoglobin (COHb) 1.4 gm% (0.0-3.0); Hemoglobin (Hb) 18.7 g/dL (14.0-18.0)
[2019-11-01 07:45] LABS: Calcium, Ionized 1.19 mmol/L (1.12-1.30); Potassium - ABG Lab 4.04 mmol/L (3.70-5.30)
[2019-11-01 07:47] LABS: ALV-art Gradient 163.075 (0-20)
--- NOTE | 2019-11-01 08:04 | RAD ---
EXAM: Single view of the chest HISTORY: Ventilated patient with respiratory failure COMPARISON: 10/30/2019 FINDINGS: Single view of the chest shows an enlarged but stable cardiomediastinal silhouette. The li parris and tubes are unchanged in position. There is obscurity of the left hemidiaphragm which could represent a small left pleural effusion. The bones are unremarkable. IMPRESSION: Cardiomegaly and possible small left pleural effusion.
[2019-11-01] MEDS: Famotidine/PF 20 mg/2ml Vial SLOW IVP SCH ×2 (09:16→20:01)
[2019-11-01] MEDS: Famotidine 20 MG TAB PO SCH ×2 (09:16→20:06)
[2019-11-01] MEDS: Aspirin Chewable 81 MG TAB PER TUBE SCH (09:16)
--- NOTE | 2019-11-01 09:42 | PRG ---
DATE OF SERVICE: 11/01/2019 TIME SPENT: This is 35 minutes of critical care time. SUBJECTIVE: The patient remains intubated on mechanical ventilation. He will wake up and follow commands appropriately. OBJECTIVE: VITAL SIGNS: His temperature is 98.1, pulse 95, blood pressure 135/94, O2 saturation 97%. HEENT: He is orally intubated. He also has OG tube in place. NECK: Increase girth. LUNGS: Diminished breath sounds throughout. CARDIOVASCULAR: S1 and S2, regular. ABDOMEN: Morbidly obese, soft. EXTREMITIES: No clubbing or cyanosis. He has some brawny edema in his legs. LABORATORY DATA: White blood cell count 10.7, hematocrit 61.0, and platelet count 147. PH of 7.33, pCO2 of 64 down from preintubation pCO2 of 122, pO2 is 77, currently on SIMV rate 12, tidal volume 500, PEEP 5, pressure support 10, FiO2 40%. Sodium 141, potassium 4.2, chloride 99, CO2 of 35, BUN 31, creatinine 1.3, glucose 131. His chest x-ray shows cardiomegaly, difficult to see left lower lobe secondary to the cardiomegaly. Echocardiogram report demonstrated diastolic dysfunction with a dilated RV. ASSESSMENT: 1. Acute on chronic respiratory failure, requiring mechanical ventilation. 2. Likely untreated severe obstructive sleep apnea contributing to the erythrocytosis and pulmonary hypertension with right-sided ventricular failure. RECOMMENDATIONS: I would agree that if the patient absolutely refused to wear CPAP, then his best course of action would be to have tracheostomy placed. My guess would be that further discussions will be made early next week between Dr. Stark and the family concerning that. In the meantime, continue present care. Job ID: [id number]
--- NOTE | 2019-11-01 10:43 | PDOC.CPN ---
- Subjective Date: 11/01/19 Time: 12:03 Interval history: Pt currently intubated but awake and alert. Following commands Recent echo with nromal EF, mild LVH and RV, RA enlarged (likely from PRASHANTH) - Objective Allergies/Adverse Reactions: Allergies Allergy/AdvReac Type Severity Reaction Status Date / Time morphine Allergy Severe Verified 10/30/19 06:23 Visit Medications: Current Medications Acetaminophen (Tylenol) 650 mg PO Q4H PRN PRN Reason: Headache/Fever or Mild Pain Acetaminophen (Tylenol Elixir) 650 mg PO Q4H PRN PRN Reason: pain/fever Last Admin: 10/30/19 09:26 Dose: 650 mg Acetaminophen (Tylenol) 650 mg [place] Q4H PRN PRN Reason: Headache/Fever or Pain Aspirin (Aspirin Chewable) 81 mg PER TUBE DAILY [facility] Last Admin: 11/01/19 09:16 Dose: 81 mg Enoxaparin Sodium (Lovenox) 40 mg SC 2100 [facility] Last Admin: 10/31/19 20:31 Dose: 40 mg Famotidine (Pepcid) 20 mg PO BID [facility] Last Admin: 11/01/19 09:16 Dose: 20 mg Famotidine (Pepcid) 20 mg SLOW IVP BID [facility] Last Admin: 11/01/19 09:16 Dose: Not Given Fentanyl Citrate 2,000 mcg/ (Sodium Chloride) 100 mls @ 0 mls/hr IV INF [facility]; Protocol Stop: 11/29/19 02:02 Last Admin: 10/31/19 22:55 Dose: 100 mls Fentanyl Citrate (Fentanyl Bolus) 250 mls @ 0 mls/hr IVPB PRN PRN PRN Reason: Breakthrough pain/agitation Stop: 11/29/19 02:02 Lorazepam (Ativan) 1 mg SLOW IVP Q1H PRN PRN Reason: Breakthrough agitation Stop: 11/29/19 02:02 Miscellaneous Medication (Pharmacy To Dose) 1 each IVPB PRN PRN PRN Reason: Pharmacy to dose Propofol (Diprivan) 1,000 mg IV INF PRN; Protocol PRN Reason: TO ACHIEVE GOAL RASS Stop: 11/29/19 02:02 Last Admin: 10/30/19 06:26 Dose: 1,000 mg Propofol (Diprivan Bolus) 20 mg IV Q5MIN PRN PRN Reason: BREAKTHROUGH AGITATION Stop: 11/29/19 02:02 Sodium Chloride (Flush - Normal Saline) 10 ml IVF PRN PRN PRN Reason: Saline Flush Last Admin: 10/31/19 09:08 Dose: 10 ml Vital Signs & Weight: Vital Signs Temp Pulse Resp BP 11/01/19 07:51 85 111/78 11/01/19 07:00 99.2 F 11/01/19 06:00 12 11/01/19 04:00 98.1 F 12 11/01/19 02:00 12 11/01/19 00:00 98.3 F 12 Admit Weight 287 lb 11.252 oz Weight 279 lb 15.793 oz - Physical Exam General: no apparent distress HEENT: mucus membranes moist Cardiac: no murmur, regular rate, regular rhythm Lungs: clear to auscultation Abdomen: active bowel sounds Extremities: 2+ LE edema Musculoskeletal: no pain - Labs Result Diagrams: 11/01/19 06:22 11/01/19 03:34 Troponin/CKMB CK-MB (CK-2) 4.1 ng/mL (0-6.6) 10/30/19 02:06 Troponin I 0.056 ng/mL (< 0.028) H 10/30/19 02:06 - Assessment/Plan Assessment/Plan: Assessment/Plan: 1. Acute hypoxic, hypercapnic respiratory insufficiency 2. Erythrocytosis 3. Acute on chronic diastolic heart failure. 4. Obesity 5. Sleep apnea 6. Non compliance 7. Type 2 MD, demand ischemia 11/01/19 Pt more alert today Family states he does have severe PRASHANTH (not tested given no insurance) but family paid for BIPAP at home. Not using it at this time given normal EF with dilated RV, RA, is likley a contributing factor Pt also with diastolic dysfunction Creatinine improving PLAN 10/31: - Continue supportive care. - Continue to try to wean ventilator. - Agree with holding diuresis for now. - Off pressor support. - Fever has resolved and has not recurred since yesterday. - Restart Lasix tomorrow if BP allows. - Discussed with family at bedside.
--- NOTE | 2019-11-01 11:46 | PDOC.HOSPP ---
- Subjective Subjective: family at bedside, on vent, AO3, d/w family and RN. - Objective Vital Signs & Weight: Vital Signs (12 hours) Temp Pulse Resp BP 11/01/19 11:01 82 128/81 11/01/19 07:51 85 111/78 11/01/19 07:00 99.2 F 11/01/19 06:00 12 11/01/19 04:00 98.1 F 12 11/01/19 02:00 12 11/01/19 00:00 98.3 F 12 Weight Admit Weight 287 lb 11.252 oz Weight 279 lb 15.793 oz Most Recent Monitor Data Heart Rate from ECG 86 NIBP 128/81 NIBP BP-Mean 96 Respiration from ECG 14 SpO2 95 I&O: 10/31/19 11/01/19 11/02/19 06:59 06:59 06:59 Intake Total 582 969.8 60 Output Total 2125 990 230 Balance -1543 -20.2 -170 Result Diagrams: 11/01/19 06:22 11/01/19 03:34 Additional Labs: Accuchecks 10/31/19 20:39 POC Glucose 116 H Hospitalist ROS - Medication Medications: Active Medications Generic Name Dose Route Start Last Admin Trade Name Freq PRN Reason Stop Dose Admin Acetaminophen 650 mg 10/30/19 08:41 10/30/19 09:26 Tylenol Elixir PO 650 mg Q4H PRN Administration pain/fever Aspirin 81 mg 11/01/19 09:00 11/01/19 09:16 Aspirin Chewable PER TUBE 81 mg DAILY SONIA Administration Enoxaparin Sodium 40 mg 10/30/19 21:00 10/31/19 20:31 Lovenox SC 40 mg 2100 SONIA Administration Famotidine 20 mg 10/30/19 21:00 11/01/19 09:16 Pepcid PO 20 mg BID SONIA Administration Famotidine 20 mg 10/30/19 21:00 11/01/19 09:16 Pepcid SLOW IVP Not Given BID SONIA Fentanyl Citrate 2,000 mcg/ 100 mls @ 0 mls/hr 10/30/19 02:02 10/31/19 22:55 Sodium Chloride IV 11/29/19 02:02 100 mls INF SONIA Administration Protocol Per Protocol Propofol 1,000 mg 10/30/19 02:02 10/30/19 06:26 Diprivan IV 11/29/19 02:02 1,000 mg INF PRN Administration TO ACHIEVE GOAL RASS Protocol Sodium Chloride 10 ml 10/29/19 23:31 10/31/19 09:08 Flush - Normal Saline IVF 10 ml PRN PRN Administration Saline Flush - Exam General - other findings: on vent Hosp A/P - Plan old records reviewed/req Acute hypoxic/hypercapneic respiratory failure - on [facility] Vent -per [facility] -daily SBT -AOx3 Acute on chronic diastolic heart failure --echo showed DD, and RVD, ef of 5% Toxic Metabolic Encephalopathy - resolved. Morbid Obesity BMI 46.7 PRASHANTH/Obesity hypoventilation syndrome - emphasize on adherenece to home cpap. -diet/exercise counselling Type 2 SD - POA - resolved Erythrocytosis s/p phlebotomy Full code.
[2019-11-01] MEDS: fentaNYL Citrate/PF 2,000 MCG in Sodium Chloride 0.9% 60 ML IV SCH (18:49)
[2019-11-01] MEDS: Enoxaparin Sodium 40 MG/0.4 ML SYRINGE SC SCH (20:02)
[2019-11-02 05:45] LABS: #Eosinphils 0.5 thou/uL (0.0-0.7); #Lymphocytes 1.4 thou/uL (1.20-3.40); #Neutrophils 6.9 thou/uL (1.40-6.50); %Basophils 0.2 % (0.0-1.0); %Eosinophils 5.5 % (0.0-10.0); %Lymphocytes 13.9 % (21.0-51.0); %Monocytes 10.4 % (0.0-10.0); %Neutrophils 69.9 % (42.0-75.0); Hemoglobin 17.1 g/dL (14.0-18.0); Mean Corpuscular HGB CONC 29.1 g/dL (32.0-36.0); Mean Corpuscular Hemoglobin 27.7 pg (27.0-31.0); Mean Corpuscular Volume 95.4 fL (78.0-98.0); Mean Platelet Volume 9.3 fL (7.4-10.4); Platelet Count 174 thou/uL (130-400); RBC Distribution Width 13.8 % (11.5-14.5); Red Blood Cell (RBC) Count 6.16 mill/uL (4.70-6.10); White Blood Cell (WBC) Count 9.9 thou/uL (4.8-10.8)
[2019-11-02 05:47] LABS: Hemoglobin 17.2 g/dL (14.0-18.0); Mean Corpuscular Hemoglobin 27.6 pg (27.0-31.0); Mean Corpuscular Volume 95.3 fL (78.0-98.0); Platelet Count 178 thou/uL (130-400); RBC Distribution Width 13.8 % (11.5-14.5); Red Blood Cell (RBC) Count 6.23 mill/uL (4.70-6.10); White Blood Cell (WBC) Count 9.6 thou/uL (4.8-10.8)
[2019-11-02 05:48] LABS: #Eosinphils 0.5 thou/uL (0.0-0.7); #Lymphocytes 1.3 thou/uL (1.20-3.40); #Monocytes 1.1 thou/uL (0.11-0.59); #Neutrophils 6.7 thou/uL (1.40-6.50); %Basophils 0.3 % (0.0-1.0); %Eosinophils 5.5 % (0.0-10.0); %Lymphocytes 13.1 % (21.0-51.0); %Monocytes 11.3 % (0.0-10.0); %Neutrophils 69.8 % (42.0-75.0); Mean Platelet Volume 9.3 fL (7.4-10.4)
[2019-11-02 06:05] LABS: Anion Gap 14 mmol/L (10-20); BUN (Urea Nitrogen) 30 mg/dL (8.4-25.7); Calc. Creatinine Clearance 119 mL/min (70-130); Calcium 9.1 mg/dL (7.8-10.44); Carbon Dioxide 31 mmol/L (22-29); Chloride 103 mmol/L (98-107); Estimated GFR-MDRD 61; Glucose 131 mg/dL (70-105); Potassium 4.3 mmol/L (3.5-5.1); Sodium 144 mmol/L (136-145)
[2019-11-02 06:12] LABS: Anion Gap 18 mmol/L (10-20); BUN (Urea Nitrogen) 30 mg/dL (8.4-25.7); Calc. Creatinine Clearance 119 mL/min (70-130); Calcium 8.9 mg/dL (7.8-10.44); Carbon Dioxide 28 mmol/L (22-29); Chloride 103 mmol/L (98-107); Estimated GFR-MDRD 61; Glucose 129 mg/dL (70-105); Potassium 4.7 mmol/L (3.5-5.1); Sodium 144 mmol/L (136-145)
[2019-11-02 07:36] LABS: Actual Bicarbonate (HCO3a) 40.4 mEq/L (22-28); Base Excess (BEa) 9.2 mEq/L (-2.0 to +3.0); Carboxyhemoglobin (COHb) 1.7 gm% (0.0-3.0); Hemoglobin (Hb) 17.6 g/dL (14.0-18.0); O2 Tension (PaO2) 64.5 mmHg (80.0-100.0); Potassium - ABG Lab 4.29 mmol/L (3.70-5.30)
[2019-11-02 07:38] LABS: CO2 Tension 84.4 mmHg (35.0-45.0); Puncture Site LRA
--- NOTE | 2019-11-02 07:59 | RAD ---
EXAM: Single view of the chest HISTORY: Ventilated patient with respiratory failure COMPARISON: 11/01/2019 FINDINGS: Single view of the chest shows an enlarged but stable cardiomediastinal silhouette. Lines and tubes are unchanged in position. There is obscurity of the left hemidiaphragm which could be from a pleural effusion and/or atelectasis. The bones are unremarkable. IMPRESSION: Stable exam
[2019-11-02] MEDS: Famotidine/PF 20 mg/2ml Vial SLOW IVP SCH ×2 (08:24→20:09)
[2019-11-02] MEDS: Famotidine 20 MG TAB PO SCH ×2 (08:24→20:09)
[2019-11-02] MEDS: Aspirin Chewable 81 MG TAB PER TUBE SCH (08:24)
--- NOTE | 2019-11-02 09:49 | PDOC.CPN ---
- Objective Allergies/Adverse Reactions: Allergies Allergy/AdvReac Type Severity Reaction Status Date / Time morphine Allergy Severe Verified 10/30/19 06:23 Visit Medications: Current Medications Acetaminophen (Tylenol) 650 mg PO Q4H PRN PRN Reason: Headache/Fever or Mild Pain Acetaminophen (Tylenol Elixir) 650 mg PO Q4H PRN PRN Reason: pain/fever Last Admin: 10/30/19 09:26 Dose: 650 mg Acetaminophen (Tylenol) 650 mg [place] Q4H PRN PRN Reason: Headache/Fever or Pain Aspirin (Aspirin Chewable) 81 mg PER TUBE DAILY [facility] Last Admin: 11/02/19 08:24 Dose: 81 mg Enoxaparin Sodium (Lovenox) 40 mg SC 2100 [facility] Last Admin: 11/01/19 20:02 Dose: 40 mg Famotidine (Pepcid) 20 mg PO BID [facility] Last Admin: 11/02/19 08:24 Dose: 20 mg Famotidine (Pepcid) 20 mg SLOW IVP BID [facility] Last Admin: 11/02/19 08:24 Dose: Not Given Fentanyl Citrate 2,000 mcg/ (Sodium Chloride) 100 mls @ 0 mls/hr IV INF [facility]; Protocol Stop: 11/29/19 02:02 Last Admin: 11/01/19 18:49 Dose: 100 mls Fentanyl Citrate (Fentanyl Bolus) 250 mls @ 0 mls/hr IVPB PRN PRN PRN Reason: Breakthrough pain/agitation Stop: 11/29/19 02:02 Lorazepam (Ativan) 1 mg SLOW IVP Q1H PRN PRN Reason: Breakthrough agitation Stop: 11/29/19 02:02 Miscellaneous Medication (Pharmacy To Dose) 1 each IVPB PRN PRN PRN Reason: Pharmacy to dose Propofol (Diprivan) 1,000 mg IV INF PRN; Protocol PRN Reason: TO ACHIEVE GOAL RASS Stop: 11/29/19 02:02 Last Admin: 10/30/19 06:26 Dose: 1,000 mg Propofol (Diprivan Bolus) 20 mg IV Q5MIN PRN PRN Reason: BREAKTHROUGH AGITATION Stop: 11/29/19 02:02 Sodium Chloride (Flush - Normal Saline) 10 ml IVF PRN PRN PRN Reason: Saline Flush Last Admin: 10/31/19 09:08 Dose: 10 ml Vital Signs & Weight: Vital Signs Temp Pulse Resp BP Pulse Ox 11/02/19 08:00 98.3 F 18 94 L 11/02/19 07:39 76 11/02/19 06:00 12 11/02/19 04:00 99.3 F 12 11/02/19 03:53 71 114/70 11/02/19 02:00 12 11/02/19 00:00 99.1 F 12 11/01/19 23:34 74 11/01/19 22:00 12 Admit Weight 287 lb 11.252 oz Weight 277 lb 5.464 oz - Physical Exam General: no apparent distress Neck: supple neck Cardiac: regular rate and rhythm Lungs: clear to auscultation Extremities: 2+ LE edema - Labs Result Diagrams: 11/02/19 05:22 11/02/19 05:22 Troponin/CKMB CK-MB (CK-2) 4.1 ng/mL (0-6.6) 10/30/19 02:06 Troponin I 0.056 ng/mL (< 0.028) H 10/30/19 02:06 - Assessment/Plan Assessment/Plan: 1. Acute hypoxic, hypercapnic respiratory insufficiency 2. Erythrocytosis 3. Acute on chronic diastolic heart failure. 4. Obesity 5. Sleep apnea 6. Non compliance 7. Type 2 [place], demand ischemia PLAN: 11/0211/01/19 Pt more alert today Family states he does have severe PRASHANTH (not tested given no insurance) but family paid for BIPAP at home. Not using it at this time given normal EF with dilated RV, RA, is likley a contributing factor Pt also with diastolic dysfunction Creatinine improving
--- NOTE | 2019-11-02 11:28 | PRG ---
DATE OF SERVICE: 11/02/2019 SUBJECTIVE: The patient remains intubated on mechanical ventilation. He is about to have more phlebotomy today because of polycythemia. He did have his respiratory rate increased today because of hypercapnia. OBJECTIVE: VITAL SIGNS: Temperature is 98.3, pulse 66, blood pressure 116/74, O2 saturation 93%. GENERAL: He will wake up and follow commands. HEENT: Unremarkable. NECK: Increased girth. LUNGS: Poor air movement. CARDIOVASCULAR: S1, S2. Regular. ABDOMEN: Soft and obese. EXTREMITIES: Trace edema. LABORATORY DATA: PH 7.30, pCO2 of 84, PO2 of 64. White blood cell count 9.9, hematocrit 58.7, and platelet count 174. Sodium 144, potassium 4.3, chloride 103, CO2 of 31, BUN 30, creatinine 1.2, and glucose 131. Chest x-ray shows no significant change. ASSESSMENT: 1. Chronic hypoxic/hypercapnic respiratory failure, mainly from obesity hypoventilation syndrome/obstructive sleep apnea. 2. Polycythemia. PLAN: 1. Phlebotomy today. 2. Increase his respiratory rate. 3. I do not see any alternative besides tracheostomy placement. I do not know if the patient will consent to that. If he does not, may need to consider some stimulant medication versus possible use of theophyline. Job ID: [id number]
--- NOTE | 2019-11-02 12:21 | PDOC.CPN ---
- Subjective Date: 11/02/19 Time: 12:18 Interval history: No changes overnight. Intbated, sedated. - Objective Allergies/Adverse Reactions: Allergies Allergy/AdvReac Type Severity Reaction Status Date / Time morphine Allergy Severe Verified 10/30/19 06:23 Visit Medications: Current Medications Acetaminophen (Tylenol) 650 mg PO Q4H PRN PRN Reason: Headache/Fever or Mild Pain Acetaminophen (Tylenol Elixir) 650 mg PO Q4H PRN PRN Reason: pain/fever Last Admin: 10/30/19 09:26 Dose: 650 mg Acetaminophen (Tylenol) 650 mg [place] Q4H PRN PRN Reason: Headache/Fever or Pain Aspirin (Aspirin Chewable) 81 mg PER TUBE DAILY [facility] Last Admin: 11/02/19 08:24 Dose: 81 mg Enoxaparin Sodium (Lovenox) 40 mg SC 2100 [facility] Last Admin: 11/01/19 20:02 Dose: 40 mg Famotidine (Pepcid) 20 mg PO BID [facility] Last Admin: 11/02/19 08:24 Dose: 20 mg Famotidine (Pepcid) 20 mg SLOW IVP BID [facility] Last Admin: 11/02/19 08:24 Dose: Not Given Fentanyl Citrate 2,000 mcg/ (Sodium Chloride) 100 mls @ 0 mls/hr IV INF [facility]; Protocol Stop: 11/29/19 02:02 Last Admin: 11/01/19 18:49 Dose: 100 mls Fentanyl Citrate (Fentanyl Bolus) 250 mls @ 0 mls/hr IVPB PRN PRN PRN Reason: Breakthrough pain/agitation Stop: 11/29/19 02:02 Lorazepam (Ativan) 1 mg SLOW IVP Q1H PRN PRN Reason: Breakthrough agitation Stop: 11/29/19 02:02 Miscellaneous Medication (Pharmacy To Dose) 1 each IVPB PRN PRN PRN Reason: Pharmacy to dose Propofol (Diprivan) 1,000 mg IV INF PRN; Protocol PRN Reason: TO ACHIEVE GOAL RASS Stop: 11/29/19 02:02 Last Admin: 10/30/19 06:26 Dose: 1,000 mg Propofol (Diprivan Bolus) 20 mg IV Q5MIN PRN PRN Reason: BREAKTHROUGH AGITATION Stop: 11/29/19 02:02 Sodium Chloride (Flush - Normal Saline) 10 ml IVF PRN PRN PRN Reason: Saline Flush Last Admin: 10/31/19 09:08 Dose: 10 ml Vital Signs & Weight: Vital Signs Temp Pulse Resp BP Pulse Ox 11/02/19 10:18 77 11/02/19 10:00 18 11/02/19 08:00 98.3 F 18 94 L 11/02/19 07:39 76 11/02/19 06:00 12 11/02/19 04:00 99.3 F 12 11/02/19 03:53 71 114/70 11/02/19 02:00 12 Admit Weight 287 lb 11.252 oz Weight 277 lb 5.464 oz - Physical Exam General: no apparent distress Neck: supple neck Cardiac: regular rate and rhythm Lungs: normal breath sounds Abdomen: active bowel sounds, soft - Labs Result Diagrams: 11/02/19 05:22 11/02/19 05:22 Troponin/CKMB CK-MB (CK-2) 4.1 ng/mL (0-6.6) 10/30/19 02:06 Troponin I 0.056 ng/mL (< 0.028) H 10/30/19 02:06 - Assessment/Plan Assessment/Plan: 1. Acute hypoxic, hypercapnic respiratory insufficiency 2. Erythrocytosis 3. Acute on chronic diastolic heart failure. 4. Obesity 5. Sleep apnea 6. Non compliance 7. Type 2 [place], demand ischemia 11/02 No changes noted Respiratory support diuresis with one dose of lasix today 11/01/19 Pt more alert today Family states he does have severe PRASHANTH (not tested given no insurance) but family paid for BIPAP at home. Not using it at this time given normal EF with dilated RV, RA, is likley a contributing factor Pt also with diastolic dysfunction Creatinine improving
--- NOTE | 2019-11-02 13:34 | PDOC.HOSPP ---
- Subjective Subjective: still on vent, LE/feet more edematic than y'day - Objective Vital Signs & Weight: Vital Signs (12 hours) Temp Pulse Resp BP Pulse Ox 11/02/19 12:20 70 11/02/19 12:00 98.5 F 18 11/02/19 10:18 77 11/02/19 10:00 18 11/02/19 08:00 98.3 F 18 94 L 11/02/19 07:39 76 11/02/19 06:00 12 11/02/19 04:00 99.3 F 12 11/02/19 03:53 71 114/70 11/02/19 02:00 12 Weight Admit Weight 287 lb 11.252 oz Weight 277 lb 5.464 oz Most Recent Monitor Data Heart Rate from ECG 77 NIBP 103/67 NIBP BP-Mean 79 Respiration from ECG 18 SpO2 92 I&O: 11/01/19 11/02/19 11/03/19 06:59 06:59 06:59 Intake Total 969.8 1843.6 120.9 Output Total 990 1508 240 Balance -20.2 335.6 -119.1 Result Diagrams: 11/02/19 05:22 11/02/19 05:22 Hospitalist ROS - Medication Medications: Active Medications Generic Name Dose Route Start Last Admin Trade Name Elia PRN Reason Stop Dose Admin Acetaminophen 650 mg 10/30/19 08:41 10/30/19 09:26 Tylenol Elixir PO 650 mg Q4H PRN Administration pain/fever Aspirin 81 mg 11/01/19 09:00 11/02/19 08:24 Aspirin Chewable PER TUBE 81 mg DAILY SONIA Administration Enoxaparin Sodium 40 mg 10/30/19 21:00 11/01/19 20:02 Lovenox SC 40 mg 2100 SONIA Administration Famotidine 20 mg 10/30/19 21:00 11/02/19 08:24 Pepcid PO 20 mg BID SONIA Administration Famotidine 20 mg 10/30/19 21:00 11/02/19 08:24 Pepcid SLOW IVP Not Given BID SONIA Fentanyl Citrate 2,000 mcg/ 100 mls @ 0 mls/hr 10/30/19 02:02 11/01/19 18:49 Sodium Chloride IV 11/29/19 02:02 100 mls INF SONIA Administration Protocol Per Protocol Propofol 1,000 mg 10/30/19 02:02 10/30/19 06:26 Diprivan IV 11/29/19 02:02 1,000 mg INF PRN Administration TO ACHIEVE GOAL RASS Protocol Sodium Chloride 10 ml 10/29/19 23:31 10/31/19 09:08 Flush - Normal Saline IVF 10 ml PRN PRN Administration Saline Flush - Exam General Appearance: NAD ENT: normocephalic atraumatic Neck: supple Heart: RRR Respiratory: normal chest expansion, rales Gastrointestinal: soft, distended Extremities: no cyanosis, 1+ LE edema Neurological: no focal deficits Hosp A/P - Plan Acute hypoxic/hypercapneic [facility] failure [facility] -daily SBT -wean off the vent. Acute on chronic diastolic heart failure --echo showed DD, and RVD, ef of 5% Toxic Metabolic Encephalopathy - resolved. PRASHANTH/Obesity hypoventilation syndrome - emphasize on adherenece to home cpap. -diet/exercise counselling when able. Type 2 MD - POA - resolved Erythrocytosis s/p phlebotomy Morbid Obesity BMI 46.7 Full code.
[2019-11-02] MEDS: Enoxaparin Sodium 40 MG/0.4 ML SYRINGE SC SCH (20:09)
[2019-11-02] MEDS: fentaNYL Citrate/PF 2,000 MCG in Sodium Chloride 0.9% 60 ML IV SCH (20:54)
[2019-11-03 04:40] LABS: #Eosinphils 0.5 thou/uL (0.0-0.7); #Lymphocytes 1.1 thou/uL (1.20-3.40); #Monocytes 0.8 thou/uL (0.11-0.59); #Neutrophils 6.2 thou/uL (1.40-6.50); %Basophils 0.4 % (0.0-1.0); %Eosinophils 5.5 % (0.0-10.0); %Lymphocytes 12.5 % (21.0-51.0); %Neutrophils 72.7 % (42.0-75.0); Hemoglobin 15.9 g/dL (14.0-18.0); Mean Corpuscular HGB CONC 29.7 g/dL (32.0-36.0); Mean Corpuscular Hemoglobin 27.8 pg (27.0-31.0); Mean Corpuscular Volume 93.4 fL (78.0-98.0); Mean Platelet Volume 9.2 fL (7.4-10.4); Platelet Count 183 thou/uL (130-400); RBC Distribution Width 13.9 % (11.5-14.5); Red Blood Cell (RBC) Count 5.74 mill/uL (4.70-6.10); White Blood Cell (WBC) Count 8.5 thou/uL (4.8-10.8)
[2019-11-03 04:49] LABS: BUN (Urea Nitrogen) 33 mg/dL (8.4-25.7); Calc. Creatinine Clearance 121 mL/min (70-130); Calcium 8.9 mg/dL (7.8-10.44); Estimated GFR-MDRD 62; Glucose 151 mg/dL (70-105)
[2019-11-03 04:58] LABS: Anion Gap 12 mmol/L (10-20); Carbon Dioxide 33 mmol/L (22-29); Chloride 100 mmol/L (98-107); Potassium 3.4 mmol/L (3.5-5.1); Sodium 142 mmol/L (136-145)
[2019-11-03] MEDS: Famotidine/PF 20 mg/2ml Vial SLOW IVP SCH ×2 (08:33→20:30)
[2019-11-03] MEDS: Aspirin Chewable 81 MG TAB PER TUBE SCH (08:34)
[2019-11-03] MEDS: Famotidine 20 MG TAB PO SCH ×2 (08:34→20:30)
--- NOTE | 2019-11-03 08:41 | RAD ---
EXAM: Single view of the chest HISTORY: Ventilated patient with respiratory failure COMPARISON: 11/02/2019 FINDINGS: Single view of the chest shows an enlarged but stable cardiomediastinal silhouette. The li parris and tubes are unchanged in position. Stable opacity in the left lung base may represent a pleural effusion and adjacent atelectasis. The bones are unremarkable. IMPRESSION: Stable exam
--- NOTE | 2019-11-03 12:14 | PDOC.HOSPP ---
- Subjective Subjective: awake, did well with SBT. more edematic, K down. 935ml output - Objective Vital Signs & Weight: Vital Signs (12 hours) Temp Pulse Resp BP Pulse Ox 11/03/19 12:00 19 11/03/19 11:00 97.6 F 11/03/19 10:28 85 138/90 11/03/19 10:00 18 11/03/19 08:00 18 96 11/03/19 07:22 74 101/69 11/03/19 07:00 98.2 F 11/03/19 06:00 18 11/03/19 04:00 98.3 F 18 11/03/19 02:55 65 92/68 11/03/19 02:00 18 Weight Admit Weight 287 lb 11.252 oz Weight 270 lb 1.06 oz Most Recent Monitor Data Heart Rate from ECG 92 NIBP 120/76 NIBP BP-Mean 90 Respiration from ECG 19 SpO2 100 I&O: 11/02/19 11/03/19 11/04/19 06:59 06:59 06:59 Intake Total 1843.6 2177.8 19.6 Output Total 1508 935 245 Balance 335.6 1242.8 -225.4 Result Diagrams: 11/03/19 04:10 11/03/19 03:30 Hospitalist ROS - Medication Medications: Active Medications Generic Name Dose Route Start Last Admin Trade Name Freq PRN Reason Stop Dose Admin Acetaminophen 650 mg 10/30/19 08:41 10/30/19 09:26 Tylenol Elixir PO 650 mg Q4H PRN Administration pain/fever Aspirin 81 mg 11/01/19 09:00 11/03/19 08:34 Aspirin Chewable PER TUBE 81 mg DAILY SONIA Administration Enoxaparin Sodium 40 mg 10/30/19 21:00 11/02/19 20:09 Lovenox SC 40 mg 2100 SONIA Administration Famotidine 20 mg 10/30/19 21:00 11/03/19 08:34 Pepcid PO 20 mg BID SONIA Administration Famotidine 20 mg 10/30/19 21:00 11/03/19 08:33 Pepcid SLOW IVP Not Given BID SONIA Fentanyl Citrate 2,000 mcg/ 100 mls @ 0 mls/hr 10/30/19 02:02 11/02/19 20:54 Sodium Chloride IV 11/29/19 02:02 100 mls INF SONIA Administration Protocol Per Protocol Propofol 1,000 mg 10/30/19 02:02 10/30/19 06:26 Diprivan IV 11/29/19 02:02 1,000 mg INF PRN Administration TO ACHIEVE GOAL RASS Protocol Sodium Chloride 10 ml 10/29/19 23:31 10/31/19 09:08 Flush - Normal Saline IVF 10 ml PRN PRN Administration Saline Flush - Exam General - other findings: on vent Eye: PERRL, anicteric sclera, scleral icterus Neck: supple, symmetric, no JVD, no thyromegaly, no lymphadenopathy, no carotid bruit, JVD Heart: RRR Respiratory: CTAB Gastrointestinal: soft, non-tender, normal bowel sounds, no palpable masses Extremities: 2+ LE edema Neurological: no focal deficits Hosp A/P - Plan old records reviewed/req Acute hypoxic/hypercapneic [facility] -wean off the vent. -tentative plan to discuss trach evaluation by [facility] Acute on chronic diastolic heart failure --echo showed DD, and RVD, ef of 65% Toxic Metabolic Encephalopathy - resolved. PRASHANTH/Obesity hypoventilation syndrome - emphasize on adherenece to home cpap. -diet/exercise counselling when able. Extremity edema Dept Edema --lasix PRN Hypokalemia -replace the lytes -PRN -periodic check on mag level. Type 2 [place] - POA - resolved Erythrocytosis s/p phlebotomy Morbid Obesity BMI 46.7 Full code.
[2019-11-03] MEDS ORDERED: Potassium Chloride 20 MEQ TAB PO SCH (12:30)
--- NOTE | 2019-11-03 15:27 | PRG ---
DATE OF SERVICE: 11/03/2019 OBJECTIVE: VITAL SIGNS: Mr. Culp is afebrile. Heart rate in the 70s, blood pressure 121/76, respiratory rates in the teens to low 20s. LUNGS: Clear. HEART: Regular rhythm. ABDOMEN: Soft. His hematocrit after multiple phlebotomies is finally down to 53.6, white count 8.5. Creatinine is 1.2. PH today 7.3, CO2 of 84, PO2 of 64. IMPRESSION: Obesity hypoventilation syndrome. I do not feel he will do well without a tracheostomy. He was awake and alert, interacted with me and agreed to tracheostomy, so consult has been placed. Job ID: [id number]
--- NOTE | 2019-11-03 17:30 | PDOC.CPN ---
- Subjective Date: 11/03/19 Time: 17:29 Interval history: Remains intubated but awake and following commands. - Review of Systems ROS unobtainable: due to endotracheal tube - Objective Allergies/Adverse Reactions: Allergies Allergy/AdvReac Type Severity Reaction Status Date / Time morphine Allergy Severe Verified 10/30/19 06:23 Visit Medications: Current Medications Acetaminophen (Tylenol) 650 mg PO Q4H PRN PRN Reason: Headache/Fever or Mild Pain Acetaminophen (Tylenol Elixir) 650 mg PO Q4H PRN PRN Reason: pain/fever Last Admin: 10/30/19 09:26 Dose: 650 mg Acetaminophen (Tylenol) 650 mg [place] Q4H PRN PRN Reason: Headache/Fever or Pain Aspirin (Aspirin Chewable) 81 mg PER TUBE DAILY [facility] Last Admin: 11/03/19 08:34 Dose: 81 mg Enoxaparin Sodium (Lovenox) 40 mg SC 2100 [facility] Last Admin: 11/02/19 20:09 Dose: 40 mg Famotidine (Pepcid) 20 mg PO BID [facility] Last Admin: 11/03/19 08:34 Dose: 20 mg Famotidine (Pepcid) 20 mg SLOW IVP BID [facility] Last Admin: 11/03/19 08:33 Dose: Not Given Fentanyl Citrate 2,000 mcg/ (Sodium Chloride) 100 mls @ 0 mls/hr IV INF [facility]; Protocol Stop: 11/29/19 02:02 Last Admin: 11/02/19 20:54 Dose: 100 mls Fentanyl Citrate (Fentanyl Bolus) 250 mls @ 0 mls/hr IVPB PRN PRN PRN Reason: Breakthrough pain/agitation Stop: 11/29/19 02:02 Lorazepam (Ativan) 1 mg SLOW IVP Q1H PRN PRN Reason: Breakthrough agitation Stop: 11/29/19 02:02 Propofol (Diprivan) 1,000 mg IV INF PRN; Protocol PRN Reason: TO ACHIEVE GOAL RASS Stop: 11/29/19 02:02 Last Admin: 10/30/19 06:26 Dose: 1,000 mg Propofol (Diprivan Bolus) 20 mg IV Q5MIN PRN PRN Reason: BREAKTHROUGH AGITATION Stop: 11/29/19 02:02 Sodium Chloride (Flush - Normal Saline) 10 ml IVF PRN PRN PRN Reason: Saline Flush Last Admin: 10/31/19 09:08 Dose: 10 ml Vital Signs & Weight: Vital Signs Temp Pulse Resp BP Pulse Ox 11/03/19 16:00 18 11/03/19 15:00 98.0 F 11/03/19 14:19 73 121/76 11/03/19 14:00 16 11/03/19 12:00 19 11/03/19 11:00 97.6 F 11/03/19 10:28 85 138/90 11/03/19 10:00 18 11/03/19 08:00 18 96 11/03/19 07:22 74 101/69 11/03/19 07:00 98.2 F 11/03/19 06:00 18 Admit Weight 287 lb 11.252 oz Weight 270 lb 1.06 oz - Physical Exam General: appears well HEENT: mucus membranes moist Neck: supple neck Cardiac: regular rate and rhythm Lungs: clear to auscultation Neuro: no lateralizing findings Abdomen: active bowel sounds Extremities: 1+ LE edema Skin: clear Musculoskeletal: no pain - Labs Result Diagrams: 11/03/19 04:10 11/03/19 03:30 Troponin/CKMB CK-MB (CK-2) 4.1 ng/mL (0-6.6) 10/30/19 02:06 Troponin I 0.056 ng/mL (< 0.028) H 10/30/19 02:06 - Telemetry Sinus rhythms and dysrhythmias: sinus rhythm - Assessment/Plan Assessment/Plan: 1. Acute hypoxic, hypercapnic respiratory insufficiency 2. Erythrocytosis 3. Acute on chronic diastolic heart failure. 4. Obesity hypoventilation syndrome 5. Sleep apnea 6. Non compliance 7. Type 2 [place], demand ischemia PLAN: - Continue supportive care. - Ventilator management per critical care. Plan for trach tomorrow. - CV stable for now.
[2019-11-03] MEDS: Enoxaparin Sodium 40 MG/0.4 ML SYRINGE SC SCH (20:30)
--- NOTE | 2019-11-03 21:06 | CON ---
DATE OF CONSULTATION: HISTORY OF PRESENT ILLNESS: Tiburcio Culp is a 59-year-old male, morbidly obese, 5 feet 5 inches, 44 BMI, apparently lives with his family. He has suffered respiratory failure. Dr. Stark has asked me to see him regarding placement of tracheostomy. As he is morbidly obese, he cannot be weaned from the ventilator. I have talked to the patient, who is awake and writes questions and also on speaker phone to the patient's daughter and his mother, all agreed to tracheostomy in the morning. They understand that he will need to lose weight prior to weaning from the trach. They understand the risks of bleeding, infection, reoperation, dislodgement, etc. and consents. MEDICATIONS: At home; 1. Lisinopril. 2. Clindamycin. 3. Zyrtec. 4. Aspirin. In the hospital, he is on; 1. Prophylactic Lovenox. 2. Diprivan p.r.n. PAST SURGICAL HISTORY: The patient has had umbilical hernia repair in the past. PAST MEDICAL HISTORY: Morbid obesity, metabolic syndrome, noncompliance to CPAP, sleep apnea, hypertension, type 2 diabetes mellitus, dyslipidemia, prior ventilator dependence. PHYSICAL EXAMINATION: VITAL SIGNS: Height 5 feet 5 inches, 270 pounds, 44 BMI, heart rate 73, blood pressure 121/76, respiratory rate 13. HEAD, EARS, EYES, NOSE AND THROAT: Unremarkable. LUNGS: Clear. No wheezing. CARDIAC: Regular rate and rhythm. ABDOMEN: Obese, soft, nontender. Scar per above surgical history of infraumbilical hernia repair scar. EXTREMITIES: Noncontributory. LABORATORY DATA: Hemoglobin 15, white count 8.5. Basic metabolic profile normal. ASSESSMENT AND PLAN: 1. Morbid obesity, metabolic syndrome, and respiratory failure. Plan placement of tracheostomy in the morning. He most likely will need a Bivona. 2. Polycythemia. He has bled and blood discarded to take care of his hemoglobin of 20. 3. Morbid obesity and metabolic syndrome, weight loss prior to weaning his trach in the future. Job ID: [id number]
[2019-11-04 05:21] LABS: Band 2 % (5-11); Eosinophils 3 % (0-10); Hemoglobin 15.3 g/dL (14.0-18.0); Lymphocytes 8 % (21-51); MDiff Complete? YES; Mean Corpuscular HGB CONC 30.9 g/dL (32.0-36.0); Mean Corpuscular Hemoglobin 28.9 pg (27.0-31.0); Mean Corpuscular Volume 93.5 fL (78.0-98.0); Mean Platelet Volume 9.2 fL (7.4-10.4); Monocytes 16 % (0-10); Neutrophil 71 % (42-75); Platelet Count 199 thou/uL (130-400); Platelet Morphology Comment Appears Adequate; RBC Distribution Width 13.6 % (11.5-14.5); RBC Morphology Normal; Red Blood Cell (RBC) Count 5.31 mill/uL (4.70-6.10); White Blood Cell (WBC) Count 9.9 thou/uL (4.8-10.8)
[2019-11-04 05:26] LABS: Anion Gap 12 mmol/L (10-20); BUN (Urea Nitrogen) 29 mg/dL (8.4-25.7); Calc. Creatinine Clearance 146 mL/min (70-130); Calcium 9.1 mg/dL (7.8-10.44); Carbon Dioxide 35 mmol/L (22-29); Chloride 101 mmol/L (98-107); Estimated GFR-MDRD 80; Glucose 114 mg/dL (70-105); Potassium 3.8 mmol/L (3.5-5.1); Sodium 144 mmol/L (136-145)
[2019-11-04 07:10] LABS: Actual Bicarbonate (HCO3a) 35.3 mEq/L (22-28); Base Excess (BEa) 6.9 mEq/L (-2.0 to +3.0); Calcium, Ionized 1.23 mmol/L (1.12-1.30); Carboxyhemoglobin (COHb) 1.4 gm% (0.0-3.0); Hemoglobin (Hb) 16.6 g/dL (14.0-18.0); O2 Tension (PaO2) 72.9 mmHg (80.0-100.0); Potassium - ABG Lab 3.99 mmol/L (3.70-5.30); pH, Arterial 7.35 (7.35-7.45)
[2019-11-04 07:11] LABS: ALV-art Gradient 130.675 (0-20); CO2 Tension 65.3 mmHg (35.0-45.0); Puncture Site RRA
[2019-11-04] MEDS ORDERED: Lidocaine 1% w/Epinephrine 1:100K 20 ML VIAL ONE (07:57)
[2019-11-04] MEDS ORDERED: Bupivacaine PF 0.5% 30 ML VIAL ONE (07:57)
--- NOTE | 2019-11-04 07:57 | RAD ---
Chest AP view INDICATION: Intubation COMPARISON: Prior exam dated November 03, 2019 at 3:57 AM FINDINGS: Lungs:Airspace opacity in the left lower lobe persists Cardiac silhouette:Moderate to prominent cardiomegaly is stable Pulmonary vasculature:Moderate pulmonary vascular congestion remains. Pleural spaces:Small bilateral pleural effusions, left greater than right are stable Upper abdomen:No abnormality seen. Osseous structures: No acute osseous abnormality. Additional findings:ET tube and gastric catheter unchanged. IMPRESSION: Stable examination as above
[2019-11-04] MEDS ORDERED: Midazolam HCl 2 mg/2 ml Vial ONE (08:04)
[2019-11-04] MEDS ORDERED: Ketamine 50 MG/ML (10ML VIAL) ONE (08:04)
[2019-11-04] MEDS ORDERED: Fentanyl 100 MCG/2 ML VIAL ONE (08:04)
--- NOTE | 2019-11-04 09:26 | OP ---
DATE OF PROCEDURE: 11/04/2019 PREOPERATIVE DIAGNOSES: 1. Morbid obesity. 2. Sleep apnea. 3. Respiratory failure. 4. Ventilator dependency. POSTOPERATIVE DIAGNOSES: 1. Morbid obesity. 2. Sleep apnea. 3. Respiratory failure. 4. Ventilator dependency. PROCEDURE PERFORMED: #8 Bivona tracheostomy. ANESTHESIA: General, local with 0.5% Marcaine 30 mL with 1% Xylocaine with epinephrine 20 mL. DESCRIPTION OF PROCEDURE: The patient was taken to the operating room, where under general anesthesia, neck and chest prepared with ChloraPrep and draped in routine fashion. Local anesthetic mixture was infiltrated into the skin and subcutaneous tissue about the operative site. Incision made above the manubrium, carried down transversely through the skin and platysma, reflecting the strap muscles laterally, dividing the isthmus of the thyroid with the cautery, placing a tracheostomy hook in place and excising the anterior window of the trachea over 3 cartilaginous rings. Good hemostasis ensured. Endotracheal tube withdrawn under direct visualization, and under direct visualization the #8 Bivona placed into the trachea. Balloon inflated, connected to the ventilator. Incision closed on either side by continuous suture of 3-0 Prolene and tracheostomy appliance secured to skin with 3-0 Prolene. Tracheostomy straps applied after dressing applied. The patient tolerated the procedure well. Job ID: [id number]
--- NOTE | 2019-11-04 09:56 | RAD ---
EXAM: XR Abdomen 1 View/KUB DATE: 11/04/2019 9:36 AM INDICATION: Dobbhoff feeding tube placement COMPARISON: None. FINDING: Dobbhoff feeding tube tip is seen within the region of the gastric antrum. Lung bases are c lear. Visualized bowel gas pattern is nonspecific but without overt evidence of obstruction. IMPRESSION:Dobbhoff feeding tube tip in the region of the gastric antrum.
[2019-11-04] MEDS: Famotidine 20 MG TAB PO SCH ×2 (10:10→20:27)
[2019-11-04] MEDS: Aspirin Chewable 81 MG TAB PER TUBE SCH (10:10)
[2019-11-04] MEDS: Famotidine/PF 20 mg/2ml Vial SLOW IVP SCH ×2 (10:10→20:26)
[2019-11-04] MEDS ORDERED: PROPOFOL 200 MG/20 ML VIAL ONE (10:44)
[2019-11-04] MEDS ORDERED: Rocuronium Bromide 10 MG/ML (10ML VIAL) ONE (10:44)
[2019-11-04] MEDS ORDERED: Dexamethasone 20 MG/5 ML VIAL ONE (10:44)
[2019-11-04] MEDS ORDERED: Ondansetron PF 4 MG/2 ML Vial ONE (10:44)
[2019-11-04] MEDS ORDERED: PHENYLEPHRINE-NS 100 MCG/ML 10 ML SYRINGE ONE (10:44)
[2019-11-04] MEDS: Metoclopramide HCl 10 MG/2 ML VIAL IVP SCH ×2 (11:05→17:47)
[2019-11-04] MEDS ORDERED: Bisacodyl 10 MG SUPP PR PRN ×2 (11:11→18:00)
[2019-11-04] MEDS ORDERED: Bisacodyl 10 MG SUPP PR SCH (11:30)
--- NOTE | 2019-11-04 16:42 | RAD ---
SUPINE ABDOMEN: 11/04/19 INDICATIONS: Assess Dobhoff tube placement. FINDINGS/IMPRESSION: NG Dobhoff type feeding tube passed through the EG junction and overlies the gastric fundus. The tip appears in position of the region of the gastric antrum. Bowel gas pattern is not well evaluated due to soft tissue attenuation. There is mild gaseous distent ion of what appears to be proximal small bowel. POS: [facility]
--- NOTE | 2019-11-04 17:15 | PDOC.HOSPP ---
- Subjective Subjective: s/p trach, tolerated the procedure. aggressive Bowel regimen. - Objective Vital Signs & Weight: Vital Signs (12 hours) Temp Pulse Resp BP Pulse Ox 11/04/19 16:00 22 H 91 L 11/04/19 15:00 99.1 F 11/04/19 14:16 93 11/04/19 14:00 17 11/04/19 12:00 12 11/04/19 11:00 99.0 F 11/04/19 10:46 95 125/75 11/04/19 10:00 26 H 11/04/19 08:00 12 11/04/19 07:47 94 L 11/04/19 07:00 98.1 F 11/04/19 06:55 74 124/82 11/04/19 06:00 12 Weight Admit Weight 287 lb 11.252 oz Weight 267 lb 10.259 oz Most Recent Monitor Data Heart Rate from ECG 108 NIBP 147/101 NIBP BP-Mean 116 Respiration from ECG 28 SpO2 89 I&O: 11/03/19 11/04/19 11/05/19 06:59 06:59 06:59 Intake Total 2177.8 1864.6 Output Total 935 1060 390 Balance 1242.8 804.6 -390 Result Diagrams: 11/04/19 04:00 11/04/19 04:00 Hospitalist ROS - Medication Medications: Active Medications Generic Name Dose Route Start Last Admin Trade Name Freq PRN Reason Stop Dose Admin Aspirin 81 mg 11/01/19 09:00 11/04/19 10:10 Aspirin Chewable PER TUBE Not Given DAILY SONIA Enoxaparin Sodium 40 mg 10/30/19 21:00 11/03/19 20:30 Lovenox SC 40 mg 2100 SONIA Administration Famotidine 20 mg 10/30/19 21:00 11/04/19 10:10 Pepcid PO Not Given BID SONIA Famotidine 20 mg 10/30/19 21:00 11/04/19 10:10 Pepcid SLOW IVP 20 mg BID SONIA Administration Fentanyl Citrate 2,000 mcg/ 100 mls @ 0 mls/hr 10/30/19 02:02 11/02/19 20:54 Sodium Chloride IV 11/29/19 02:02 100 mls INF SONIA Administration Protocol Per Protocol Metoclopramide HCl 10 mg 11/04/19 10:00 11/04/19 11:05 Reglan IVP 10 mg 0200,1000,1800 SONIA Administration Propofol 1,000 mg 10/30/19 02:02 10/30/19 06:26 Diprivan IV 11/29/19 02:02 1,000 mg INF PRN Administration TO ACHIEVE GOAL RASS Protocol Sodium Chloride 10 ml 10/29/19 23:31 10/31/19 09:08 Flush - Normal Saline IVF 10 ml PRN PRN Administration Saline Flush - Exam General Appearance: NAD, awake alert ENT - other findings: trach placed Neck: symmetric Heart: RRR, no murmur Respiratory: CTAB, no wheezes Gastrointestinal: soft, distended Extremities: no cyanosis Hosp A/P - Plan old records reviewed/req Acute hypoxic/hypercapneic respiratory failure -s/p trach on Acute on chronic diastolic heart failure --echo showed DD, and RVD, ef of 65% Toxic Metabolic Encephalopathy - resolved. PRASHANTH/Obesity hypoventilation syndrome - emphasize on adherenece to home cpap. -diet/exercise counselling when able. Extremity edema Dept Edema --lasix PRN Hypokalemia -replace the lytes -PRN -periodic check on mag level. Type 2 ID - POA - -BG reasonable. Erythrocytosis s/p phlebotomy --d/t chronic hypoxia w.. OHS--obes hypoven syndr. Morbid Obesity BMI 46.7 mobilize PT consult Full code.
--- NOTE | 2019-11-04 18:51 | PDOC.CPN ---
- Subjective Date: 11/04/19 Time: 18:51 Interval history: He had a trach today. No chest pain. Fully awake now. - Review of Systems ROS unobtainable: due to endotracheal tube - Objective Allergies/Adverse Reactions: Allergies Allergy/AdvReac Type Severity Reaction Status Date / Time morphine Allergy Severe Verified 10/30/19 06:23 Visit Medications: Current Medications Acetaminophen (Tylenol) 650 mg PO Q4H PRN PRN Reason: Headache/Fever or Mild Pain Acetaminophen (Tylenol) 650 mg [place] Q4H PRN PRN Reason: Headache/Fever or Pain Aspirin (Aspirin Chewable) 81 mg PER TUBE DAILY [facility] Last Admin: 11/04/19 10:10 Dose: Not Given Bisacodyl (Dulcolax) 10 mg [place] Q8H PRN PRN Reason: Constipation Enoxaparin Sodium (Lovenox) 40 mg SC 2100 [facility] Last Admin: 11/03/19 20:30 Dose: 40 mg Famotidine (Pepcid) 20 mg PO BID [facility] Last Admin: 11/04/19 10:10 Dose: Not Given Famotidine (Pepcid) 20 mg SLOW IVP BID [facility] Last Admin: 11/04/19 10:10 Dose: 20 mg Fentanyl Citrate 2,000 mcg/ (Sodium Chloride) 100 mls @ 0 mls/hr IV INF [facility]; Protocol Stop: 11/29/19 02:02 Last Admin: 11/02/19 20:54 Dose: 100 mls Fentanyl Citrate (Fentanyl Bolus) 250 mls @ 0 mls/hr IVPB PRN PRN PRN Reason: Breakthrough pain/agitation Stop: 11/29/19 02:02 Lorazepam (Ativan) 1 mg SLOW IVP Q1H PRN PRN Reason: Breakthrough agitation Stop: 11/29/19 02:02 Metoclopramide HCl (Reglan) 10 mg IVP 0200,1000,1800 [facility] Last Admin: 11/04/19 17:47 Dose: 10 mg Propofol (Diprivan) 1,000 mg IV INF PRN; Protocol PRN Reason: TO ACHIEVE GOAL RASS Stop: 11/29/19 02:02 Last Admin: 10/30/19 06:26 Dose: 1,000 mg Propofol (Diprivan Bolus) 20 mg IV Q5MIN PRN PRN Reason: BREAKTHROUGH AGITATION Stop: 11/29/19 02:02 Senna/Docusate Sodium (Senokot S) 1 tab PO BID SONIA Sodium Chloride (Flush - Normal Saline) 10 ml IVF PRN PRN PRN Reason: Saline Flush Last Admin: 10/31/19 09:08 Dose: 10 ml Vital Signs & Weight: Vital Signs Temp Pulse Resp BP Pulse Ox 11/04/19 18:08 81 11/04/19 18:00 16 11/04/19 16:00 22 H 91 L 11/04/19 15:00 99.1 F 11/04/19 14:16 93 11/04/19 14:00 17 11/04/19 12:00 12 11/04/19 11:00 99.0 F 11/04/19 10:46 95 125/75 11/04/19 10:00 26 H 11/04/19 08:00 12 11/04/19 07:47 94 L 11/04/19 07:00 98.1 F 11/04/19 06:55 74 124/82 Admit Weight 287 lb 11.252 oz Weight 267 lb 10.259 oz - Physical Exam General: appears well HEENT: mucus membranes moist Neck: supple neck Cardiac: regular rate and rhythm Lungs: bibasilar rales Neuro: no lateralizing findings Abdomen: active bowel sounds Extremities: 1+ LE edema Skin: clear Musculoskeletal: no pain - Labs Result Diagrams: 11/04/19 04:00 11/04/19 04:00 Troponin/CKMB CK-MB (CK-2) 4.1 ng/mL (0-6.6) 10/30/19 02:06 Troponin I 0.056 ng/mL (< 0.028) H 10/30/19 02:06 - Telemetry Sinus rhythms and dysrhythmias: sinus rhythm - Assessment/Plan Assessment/Plan: 1. Acute hypoxic, hypercapnic respiratory insufficiency 2. Erythrocytosis 3. Acute on chronic diastolic heart failure. 4. Obesity hypoventilation syndrome 5. Sleep apnea 6. Non compliance 7. Type 2 [place], demand ischemia PLAN: - Continue supportive care. - S/P Trach placement today. - CV stable for now. - Will follow.
[2019-11-04] MEDS: Enoxaparin Sodium 40 MG/0.4 ML SYRINGE SC SCH (20:25)
[2019-11-04] MEDS: Senokot S 8.6-50 MG TAB PO SCH (20:27)
[2019-11-05] MEDS: Metoclopramide HCl 10 MG/2 ML VIAL IVP SCH ×3 (01:07→18:13)
[2019-11-05 05:10] LABS: #Eosinphils 0.1 thou/uL (0.0-0.7); #Monocytes 0.8 thou/uL (0.11-0.59); #Neutrophils 9.2 thou/uL (1.40-6.50); %Basophils 0.3 % (0.0-1.0); %Eosinophils 0.7 % (0.0-10.0); %Lymphocytes 8.8 % (21.0-51.0); %Monocytes 7.4 % (0.0-10.0); %Neutrophils 82.9 % (42.0-75.0); Hemoglobin 14.9 g/dL (14.0-18.0); Mean Corpuscular HGB CONC 29.6 g/dL (32.0-36.0); Mean Corpuscular Hemoglobin 27.6 pg (27.0-31.0); Mean Corpuscular Volume 93.4 fL (78.0-98.0); Mean Platelet Volume 9.2 fL (7.4-10.4); Platelet Count 212 thou/uL (130-400); RBC Distribution Width 13.4 % (11.5-14.5); Red Blood Cell (RBC) Count 5.39 mill/uL (4.70-6.10); White Blood Cell (WBC) Count 11.2 thou/uL (4.8-10.8)
[2019-11-05 05:29] LABS: Anion Gap 11 mmol/L (10-20); BUN (Urea Nitrogen) 26 mg/dL (8.4-25.7); Calc. Creatinine Clearance 128 mL/min (70-130); Calcium 9.4 mg/dL (7.8-10.44); Carbon Dioxide 35 mmol/L (22-29); Chloride 103 mmol/L (98-107); Estimated GFR-MDRD 70; Glucose 116 mg/dL (70-105); Potassium 4.2 mmol/L (3.5-5.1); Sodium 145 mmol/L (136-145)
--- NOTE | 2019-11-05 08:02 | PRG ---
DATE OF SERVICE: SUBJECTIVE: Tiburcio Culp had his trach today. He is slow to awake and after his surgery as expected, respiratory rates in the teens to low 20s. His volume breath rate is set at 6, oximetry is 91%, blood pressure 147/101. OBJECTIVE: LUNGS: Clear. HEART: Regular rhythm. ABDOMEN: Soft. EXTREMITIES: Without edema. LABORATORY DATA: White count 9.9, hemoglobin 15.3, platelets 199. Sodium 144, potassium 3.8, chloride 101, bicarb 35, BUN 29, creatinine 0.97. IMPRESSION: Untreated sleep apnea with respiratory failure and polycythemia secondary to that. He also has some degree of pulmonary hypertension associated with sleep apnea. Overall, he appears to be slowly improving now that he has a tracheostomy in place. We should be able to consider weaning the trach to a trach collar tomorrow with a goal O2 saturation of between 85 and 90. He did have a dilated right ventricle on his echocardiogram confirming what we suspect. His erythrocytosis did not help this, so I suspect with tracheostomy, his right ventricular size and function will improve and his functional status will improve as well. Daughter shared with me that he can do anything with her kids because he would fall asleep leading up to this. I did not realize this, but he was in nursing home for 17 years or so. His daughter only remember seen him once when she was very little and now that he is out of the C. She is back in his life. She should be in my opinion based on my conversation with her very supportive for him as long as he follows the rules that we put for him, but she also says she has no trouble walking away if he is self-destructive or noncompliant. Job ID: [id number]
--- NOTE | 2019-11-05 08:16 | RAD ---
KUB: INDICATION: History of abdominal wall tube placement. COMPARISON: Prior exam dated 11/04/2019. IMPRESSION: Since the comparison examination, Dobbhoff tube tip has been manipulated in the region of the third p ortion of the duodenum. POS: [facility]
--- NOTE | 2019-11-05 08:19 | RAD ---
CHEST 1 VIEW: INDICATION: History of intubation. COMPARISON: Prior exam dated 10/27/2019. FINDINGS: The patient has undergone interval tracheostomy. A Dobbhoff feeding tube has also been placed. Dobb ty feeding tube projects below the left hemidiaphragm beyond the field of view. Cardiomegaly and p ulmonary vascular congestion remain. No pneumothorax is evident. Bilateral pleural effusions have r esolved. IMPRESSION: 1. Interval tracheostomy tube placement and Dobbhoff tube placement. 2. Persistent cardiomegaly and pulmonary vascular engorgement. 3. Resolution of bilateral pleural effusions. POS: [facility]
[2019-11-05] MEDS: Famotidine/PF 20 mg/2ml Vial SLOW IVP SCH ×2 (09:59→20:23)
[2019-11-05] MEDS: Senokot S 8.6-50 MG TAB PO SCH ×2 (10:00→20:22)
[2019-11-05] MEDS: Famotidine 20 MG TAB PO SCH ×2 (10:00→20:22)
[2019-11-05] MEDS: Aspirin Chewable 81 MG TAB PER TUBE SCH (10:00)
--- NOTE | 2019-11-05 11:06 | RAD ---
EXAM: Single view of the abdomen HISTORY: Dobbhoff tube placement COMPARISON: 11/05/2019 oh 4:17 AM FINDINGS: Single view of the abdomen shows a nonspecific, nonobstructive bowel gas pattern. No suspi cious calcifications are seen. A Dobbhoff tube courses across the midline and is seen with its tip in the left upper quadrant, likely at the ligament of Treitz. The bones are unremarkable. IMPRESSION: Appropriate position of Dobbhoff tube.
--- NOTE | 2019-11-05 12:35 | PDOC.HOSPP ---
- Subjective Subjective: ambulating inside the room, on trach, no acute issues. Mild leukocytosis likely d/t the procedure, trach on - Objective Vital Signs & Weight: Vital Signs (12 hours) Temp Pulse Pulse Resp BP Pulse Ox Pulse Ox 11/05/19 12:00 98.7 F 11/05/19 09:04 81 126/80 94 L 11/05/19 08:00 98.5 F 93 L 11/05/19 06:20 91 L 11/05/19 06:00 15 11/05/19 04:00 98.4 F 15 11/05/19 02:00 13 11/05/19 01:51 70 Weight Admit Weight 287 lb 11.252 oz Weight 267 lb 6.731 oz Most Recent Monitor Data Heart Rate from ECG 76 NIBP 128/70 NIBP BP-Mean 89 Respiration from ECG 16 SpO2 94 I&O: 11/04/19 11/05/19 11/06/19 06:59 06:59 06:59 Intake Total 1864.6 76 Output Total 1060 975 295 Balance 804.6 -899 -295 Result Diagrams: 11/05/19 04:40 11/05/19 04:40 Hospitalist ROS - Medication Medications: Active Medications Generic Name Dose Route Start Last Admin Trade Name Freq PRN Reason Stop Dose Admin Aspirin 81 mg 11/01/19 09:00 11/05/19 10:00 Aspirin Chewable PER TUBE Not Given DAILY SONIA Enoxaparin Sodium 40 mg 10/30/19 21:00 11/04/19 20:25 Lovenox SC 40 mg 2100 SONIA Administration Famotidine 20 mg 10/30/19 21:00 11/05/19 10:00 Pepcid PO Not Given BID SONIA Famotidine 20 mg 10/30/19 21:00 11/05/19 09:59 Pepcid SLOW IVP 20 mg BID SONIA Administration Fentanyl Citrate 2,000 mcg/ 100 mls @ 0 mls/hr 10/30/19 02:02 11/02/19 20:54 Sodium Chloride IV 11/29/19 02:02 100 mls INF SONIA Administration Protocol Per Protocol Metoclopramide HCl 10 mg 11/04/19 10:00 11/05/19 09:59 Reglan IVP 10 mg 0200,1000,1800 SONIA Administration Propofol 1,000 mg 10/30/19 02:02 10/30/19 06:26 Diprivan IV 11/29/19 02:02 1,000 mg INF PRN Administration TO ACHIEVE GOAL RASS Protocol Senna/Docusate Sodium 1 tab 11/04/19 21:00 11/05/19 10:00 Senokot S PO Not Given BID SONIA Sodium Chloride 10 ml 10/29/19 23:31 10/31/19 09:08 Flush - Normal Saline IVF 10 ml PRN PRN Administration Saline Flush - Exam General Appearance: NAD, awake alert Eye: PERRL ENT: normocephalic atraumatic Neck - other findings: trach in place Heart: RRR Respiratory: CTAB, normal chest expansion Gastrointestinal: soft, normal bowel sounds Skin - other findings: dept edema on feet and hands Hosp A/P - Plan Acute hypoxic/hypercapneic respiratory failure -s/p trach on Mild leukocytosis likely d/t the procedure. Acute on chronic diastolic heart failure --echo showed DD, and RVD, ef of 65% Toxic Metabolic Encephalopathy - resolved. PRASHANTH/Obesity hypoventilation syndrome -diet/exercise counselling when able. Extremity edema Dept Edema --lasix PRN Hypokalemia -replace the lytes -PRN -periodic check on mag level. Type 2 [place] - POA - -BG reasonable. Erythrocytosis s/p phlebotomy --d/t chronic hypoxia w.. OHS--obes hypoven syndr. Morbid Obesity BMI 46.7 mobilize PT consult Full code.
--- NOTE | 2019-11-05 17:48 | PRG ---
DATE OF SERVICE: 11/05/2019 Tiburcio Culp is doing well today. Tracheostomy is stable. There is no bleeding. He has been weaned from the ventilator. Abdominal x-ray revealed Dobhoff to be in good position in the duodenum this could be used for feeding. At this point, I will see him as needed. Please call if necessary. Job ID: [id number]
--- NOTE | 2019-11-05 19:30 | PDOC.CPN ---
- Subjective Date: 11/05/19 Time: 19:28 Interval history: He is on T collar now. Sitting on the chair communicating without issues. - Review of Systems ROS unobtainable: due to endotracheal tube - Objective Allergies/Adverse Reactions: Allergies Allergy/AdvReac Type Severity Reaction Status Date / Time morphine Allergy Severe Verified 10/30/19 06:23 Visit Medications: Current Medications Acetaminophen (Tylenol) 650 mg PO Q4H PRN PRN Reason: Headache/Fever or Mild Pain Acetaminophen (Tylenol) 650 mg [place] Q4H PRN PRN Reason: Headache/Fever or Pain Aspirin (Aspirin Chewable) 81 mg PER TUBE DAILY [facility] Last Admin: 11/05/19 10:00 Dose: Not Given Bisacodyl (Dulcolax) 10 mg [place] Q8H PRN PRN Reason: Constipation Enoxaparin Sodium (Lovenox) 40 mg SC 2100 [facility] Last Admin: 11/04/19 20:25 Dose: 40 mg Famotidine (Pepcid) 20 mg PO BID [facility] Last Admin: 11/05/19 10:00 Dose: Not Given Famotidine (Pepcid) 20 mg SLOW IVP BID [facility] Last Admin: 11/05/19 09:59 Dose: 20 mg Fentanyl Citrate 2,000 mcg/ (Sodium Chloride) 100 mls @ 0 mls/hr IV INF [facility]; Protocol Stop: 11/29/19 02:02 Last Admin: 11/02/19 20:54 Dose: 100 mls Fentanyl Citrate (Fentanyl Bolus) 250 mls @ 0 mls/hr IVPB PRN PRN PRN Reason: Breakthrough pain/agitation Stop: 11/29/19 02:02 Lorazepam (Ativan) 1 mg SLOW IVP Q1H PRN PRN Reason: Breakthrough agitation Stop: 11/29/19 02:02 Metoclopramide HCl (Reglan) 10 mg IVP 0200,1000,1800 [facility] Last Admin: 11/05/19 18:13 Dose: 10 mg Propofol (Diprivan) 1,000 mg IV INF PRN; Protocol PRN Reason: TO ACHIEVE GOAL RASS Stop: 11/29/19 02:02 Last Admin: 10/30/19 06:26 Dose: 1,000 mg Propofol (Diprivan Bolus) 20 mg IV Q5MIN PRN PRN Reason: BREAKTHROUGH AGITATION Stop: 11/29/19 02:02 Senna/Docusate Sodium (Senokot S) 1 tab PO BID [facility] Last Admin: 11/05/19 10:00 Dose: Not Given Sodium Chloride (Flush - Normal Saline) 10 ml IVF PRN PRN PRN Reason: Saline Flush Last Admin: 10/31/19 09:08 Dose: 10 ml Vital Signs & Weight: Vital Signs Temp Pulse BP Pulse Ox Pulse Ox 11/05/19 18:13 93 L 11/05/19 16:00 98.3 F 11/05/19 12:00 98.7 F 11/05/19 09:04 81 126/80 94 L 11/05/19 08:00 98.5 F 93 L Admit Weight 287 lb 11.252 oz Weight 267 lb 6.731 oz - Physical Exam General: appears well HEENT: mucus membranes moist Neck: supple neck Cardiac: regular rate and rhythm Lungs: clear to auscultation Neuro: grossly intact Abdomen: active bowel sounds Extremities: no edema Skin: clear Musculoskeletal: no pain - Labs Result Diagrams: 11/05/19 04:40 11/05/19 04:40 Troponin/CKMB CK-MB (CK-2) 4.1 ng/mL (0-6.6) 10/30/19 02:06 Troponin I 0.056 ng/mL (< 0.028) H 10/30/19 02:06 - Telemetry Sinus rhythms and dysrhythmias: sinus rhythm - Assessment/Plan Assessment/Plan: 1. Acute hypoxic, hypercapnic respiratory insufficiency 2. Erythrocytosis 3. Acute on chronic diastolic heart failure. 4. Obesity hypoventilation syndrome 5. Sleep apnea 6. Non compliance 7. Type 2 [place], demand ischemia PLAN: - CV stable. - Stable on T collar. - May transfer to medical floor from cardiac perspective.
--- NOTE | 2019-11-05 20:05 | PRG ---
DATE OF SERVICE: 11/05/2019 SUBJECTIVE: Mr. Culp is doing well post tracheostomy. OBJECTIVE: VITAL SIGNS: He is afebrile. Heart rates in the 90s. He is on a trach collar today. Blood pressure 131/80. LUNGS: Clear. HEART: Regular rhythm. ABDOMEN: Protuberant. EXTREMITIES: Without asymmetry or edema. It is significant he does have stasis changes in the lower extremities. LABORATORY DATA: White count 11.2, hemoglobin 14.9, platelets 212. Electrolytes are unremarkable. BUN 26, creatinine 1.09. Bicarb is 35, which is probably below his baseline. IMPRESSION: 1. Obesity hypoventilation syndrome. This is life-threatening. 2. Erythrocytosis secondary to untreated sleep apnea. 3. Morbid obesity, 5 feet 5 inches, 267 pounds with a BMI of 44. 4. Pulmonary hypertension with right heart failure secondary to untreated sleep apnea. 5. Status post tracheostomy. We can advance his diet, but I would limit it to 1200 to 1500 calories at this point. Out of bed time will increase tomorrow. CRITICAL CARE TIME: 30 minutes. Job ID: [id number]
[2019-11-05] MEDS: Enoxaparin Sodium 40 MG/0.4 ML SYRINGE SC SCH (20:23)
[2019-11-06] MEDS: Metoclopramide HCl 10 MG/2 ML VIAL IVP SCH ×3 (01:46→18:02)
[2019-11-06 04:28] LABS: Anion Gap 11 mmol/L (10-20); BUN (Urea Nitrogen) 27 mg/dL (8.4-25.7); Calc. Creatinine Clearance 117 mL/min (70-130); Calcium 9.6 mg/dL (7.8-10.44); Carbon Dioxide 37 mmol/L (22-29); Chloride 101 mmol/L (98-107); Estimated GFR-MDRD 62; Glucose 102 mg/dL (70-105); Sodium 145 mmol/L (136-145)
[2019-11-06 04:37] LABS: Band 6 % (5-11); Eosinophils 3 % (0-10); Hemoglobin 15.6 g/dL (14.0-18.0); Lymphocytes 12 % (21-51); MDiff Complete? YES; Mean Corpuscular HGB CONC 29.6 g/dL (32.0-36.0); Mean Corpuscular Hemoglobin 27.8 pg (27.0-31.0); Mean Corpuscular Volume 93.8 fL (78.0-98.0); Mean Platelet Volume 9.7 fL (7.4-10.4); Monocytes 3 % (0-10); Neutrophil 76 % (42-75); Platelet Count 213 thou/uL (130-400); Platelet Morphology Comment Appears Adequate; RBC Distribution Width 13.6 % (11.5-14.5); RBC Morphology Normal; Red Blood Cell (RBC) Count 5.62 mill/uL (4.70-6.10); White Blood Cell (WBC) Count 10.1 thou/uL (4.8-10.8)
[2019-11-06 06:06] VITALS: BMI 45.3
--- NOTE | 2019-11-06 08:43 | RAD ---
CHEST 1 VIEW PORTABLE: HISTORY: Ventilation patient, respiratory insufficiency. COMPARISON: Comparison 11/05/2019. FINDINGS: Stable tracheostomy tube and gastric tube. Cardiomegaly with mild bilateral vascular congestion and probable small pleural effusions. No new confluent process. IMPRESSION: Stable-appearing chest. No significant new process. POS: [facility]
[2019-11-06] MEDS: Famotidine 20 MG TAB PO SCH ×2 (09:00→20:35)
[2019-11-06] MEDS: Senokot S 8.6-50 MG TAB PO SCH ×2 (09:02→20:35)
[2019-11-06] MEDS: Famotidine/PF 20 mg/2ml Vial SLOW IVP SCH ×2 (09:03→19:42)
[2019-11-06] MEDS: Aspirin Chewable 81 MG TAB PER TUBE SCH (09:03)
[2019-11-06] MEDS ORDERED: Sodium Chloride 0.9% 1,000 ML IV SCH (11:30)
--- NOTE | 2019-11-06 15:26 | PDOC.HOSPP ---
- Subjective Subjective: doing well, had BM yesterday, abd still distended, but better than 2 days prior , + morbidly obese. Speech valve and swallow study today, can transf.. to floor. - Objective Vital Signs & Weight: Vital Signs (12 hours) Temp Pulse Pulse BP BP Pulse Ox Pulse Ox 11/06/19 12:00 98.3 F 11/06/19 10:02 81 96 126/77 131/96 H 89 L 11/06/19 08:00 98.6 F 90 L 11/06/19 04:00 98.5 F Pulse Ox 11/06/19 12:00 11/06/19 10:02 89 L 11/06/19 08:00 11/06/19 04:00 Weight Admit Weight 287 lb 11.252 oz Weight 272 lb 11.389 oz Most Recent Monitor Data Heart Rate from ECG 88 NIBP 124/79 NIBP BP-Mean 94 Respiration from ECG 27 SpO2 89 I&O: 11/05/19 11/06/19 11/07/19 06:59 06:59 06:59 Intake Total 76 Output Total 975 1260 275 Balance -899 -1260 -275 Result Diagrams: 11/06/19 03:10 11/06/19 03:10 Hospitalist ROS - Medication Medications: Active Medications Generic Name Dose Route Start Last Admin Trade Name Elia PRN Reason Stop Dose Admin Aspirin 81 mg 11/01/19 09:00 11/06/19 09:03 Aspirin Chewable PER TUBE 81 mg DAILY SONIA Administration Enoxaparin Sodium 40 mg 10/30/19 21:00 11/05/19 20:23 Lovenox SC 40 mg 2100 SONIA Administration Famotidine 20 mg 10/30/19 21:00 11/06/19 09:00 Pepcid PO 20 mg BID SONIA Administration Famotidine 20 mg 10/30/19 21:00 11/06/19 09:03 Pepcid SLOW IVP Not Given BID SONIA Fentanyl Citrate 2,000 mcg/ 100 mls @ 0 mls/hr 10/30/19 02:02 11/02/19 20:54 Sodium Chloride IV 11/29/19 02:02 100 mls INF SONIA Administration Protocol Per Protocol Sodium Chloride 1,000 mls @ 50 mls/hr 11/06/19 11:30 11/06/19 12:03 Normal Saline 0.9% IV 11/07/19 07:29 1,000 mls .Q20H SONIA Administration Metoclopramide HCl 10 mg 11/04/19 10:00 11/06/19 09:03 Reglan IVP 10 mg 0200,1000,1800 SONIA Administration Propofol 1,000 mg 10/30/19 02:02 10/30/19 06:26 Diprivan IV 11/29/19 02:02 1,000 mg INF PRN Administration TO ACHIEVE GOAL RASS Protocol Senna/Docusate Sodium 1 tab 11/04/19 21:00 11/06/19 09:02 Senokot S PO 1 tab BID SONIA Administration Sodium Chloride 10 ml 10/29/19 23:31 11/05/19 20:24 Flush - Normal Saline IVF 10 ml PRN PRN Administration Saline Flush - Exam General Appearance: NAD, awake alert Eye: PERRL ENT - other findings: trach in place- site looks good. Heart: RRR Respiratory: CTAB Gastrointestinal: soft, normal bowel sounds Gastrointestinal - other findings: protuberant w.. body habitus Neurological: no focal deficits Hosp A/P - Plan Acute hypoxic/hypercapneic respiratory failure Pul HTN Right heart failure -s/p trach on Mild leukocytosis likely d/t the procedure. Acute on chronic diastolic heart failure --echo showed DD, and RVD, ef of 65% Extremity edema Dept Edema --lasix PRN Toxic Metabolic Encephalopathy - resolved. PRASHANTH/Obesity hypoventilation syndrome -diet/exercise counselling when able. Hypokalemia -replace the lytes -PRN -periodic check on mag level. --2 on Type 2 [place] - POA - -BG reasonable. Erythrocytosis s/p phlebotomy untreated sleep apnea --d/t chronic hypoxia w.. OHS--obes hypoven syndr. & sleep apnea, pHTN Morbid Obesity BMI 46.7 mobilize PT consult can transfer to floor. Full code.
--- NOTE | 2019-11-06 16:27 | PRG ---
DATE OF SERVICE: 11/06/2019 SUBJECTIVE: Tiburcio Culp amazingly looks well. He is sitting up in a chair. He wants to walk. His is asking for walker. OBJECTIVE: VITAL SIGNS: His blood pressure 148/80, heart rate 70, respiratory rate is 24. LUNGS: Clear. HEART: Regular rhythm. ABDOMEN: Soft. EXTREMITIES: Without asymmetry. LABORATORY DATA: White count 10.1, hemoglobin 15.6, platelets 213. Electrolytes are unremarkable. His daily lab can be discontinued. I think he is stable to move out to a medical bed, he will be in the hospital for a while longer. His sedation protocol is on the DEC, so we will get that off DEC. Job ID: [id number]
--- NOTE | 2019-11-06 18:03 | PDOC.CPN ---
- Subjective Date: 11/06/19 Time: 18:02 Interval history: No new issues. Tolerating trach. - Review of Systems General: denies: fever/chills, weight/appetite/sleep changes, night sweats, fatigue Respiratory: denies: cough, congestion, shortness of breath, exercise intolerance Cardiovascular: denies: chest pain, palpitation, edema, paroxysmal nocturnal dyspnea, orthopnea Gastrointestinal: denies: nausea, vomiting, diarrhea, constipation, abd pain, GI bleeding Musculoskeletal: denies: pain, tenderness, stiffness, swelling, arthritis/ arthralgias Neurological: denies: numbness, syncope, seizure, weakness - Objective Allergies/Adverse Reactions: Allergies Allergy/AdvReac Type Severity Reaction Status Date / Time morphine Allergy Severe Verified 10/30/19 06:23 Visit Medications: Current Medications Acetaminophen (Tylenol) 650 mg PO Q4H PRN PRN Reason: Headache/Fever or Mild Pain Acetaminophen (Tylenol) 650 mg MN Q4H PRN PRN Reason: Headache/Fever or Pain Aspirin (Aspirin Chewable) 81 mg PER TUBE DAILY [facility] Last Admin: 11/06/19 09:03 Dose: 81 mg Bisacodyl (Dulcolax) 10 mg MN Q8H PRN PRN Reason: Constipation Enoxaparin Sodium (Lovenox) 40 mg SC 2100 [facility] Last Admin: 11/05/19 20:23 Dose: 40 mg Famotidine (Pepcid) 20 mg PO BID [facility] Last Admin: 11/06/19 09:00 Dose: 20 mg Famotidine (Pepcid) 20 mg SLOW IVP BID [facility] Last Admin: 11/06/19 09:03 Dose: Not Given Metoclopramide HCl (Reglan) 10 mg IVP 0200,1000,1800 [facility] Last Admin: 11/06/19 09:03 Dose: 10 mg Senna/Docusate Sodium (Senokot S) 1 tab PO BID [facility] Last Admin: 11/06/19 09:02 Dose: 1 tab Sodium Chloride (Flush - Normal Saline) 10 ml IVF PRN PRN PRN Reason: Saline Flush Last Admin: 11/05/19 20:24 Dose: 10 ml Vital Signs & Weight: Vital Signs Temp Pulse Pulse BP BP Pulse Ox Pulse Ox 11/06/19 12:00 98.3 F 11/06/19 10:02 81 96 126/77 131/96 H 89 L 11/06/19 08:00 98.6 F 90 L Pulse Ox 11/06/19 12:00 11/06/19 10:02 89 L 11/06/19 08:00 Admit Weight 287 lb 11.252 oz Weight 272 lb 11.389 oz - Physical Exam General: alert & oriented x3 HEENT: mucus membranes moist Neck: supple neck Cardiac: regular rate and rhythm Lungs: clear to auscultation Neuro: grossly intact Abdomen: active bowel sounds Extremities: no edema Skin: clear Musculoskeletal: no pain - Labs Result Diagrams: 11/06/19 03:10 11/06/19 03:10 Troponin/CKMB CK-MB (CK-2) 4.1 ng/mL (0-6.6) 10/30/19 02:06 Troponin I 0.056 ng/mL (< 0.028) H 10/30/19 02:06 - Telemetry Sinus rhythms and dysrhythmias: sinus rhythm - Assessment/Plan Assessment/Plan: 1. Acute hypoxic, hypercapnic respiratory insufficiency 2. Erythrocytosis 3. Acute on chronic diastolic heart failure. 4. Obesity hypoventilation syndrome 5. Sleep apnea 6. Non compliance 7. Type 2 OR, demand ischemia PLAN: - CV stable. - Will sign off. Please call with any questions.
[2019-11-06] MEDS: Enoxaparin Sodium 40 MG/0.4 ML SYRINGE SC SCH (20:35)
[2019-11-07] MEDS: Metoclopramide HCl 10 MG/2 ML VIAL IVP SCH ×2 (02:39→10:46)
[2019-11-07 06:30] LABS: Anion Gap 13 mmol/L (10-20); BUN (Urea Nitrogen) 23 mg/dL (8.4-25.7); Calc. Creatinine Clearance 140 mL/min (70-130); Calcium 9.4 mg/dL (7.8-10.44); Carbon Dioxide 29 mmol/L (22-29); Chloride 104 mmol/L (98-107); Estimated GFR-MDRD 75; Glucose 102 mg/dL (70-105); Potassium 3.9 mmol/L (3.5-5.1); Sodium 142 mmol/L (136-145)
[2019-11-07 06:31] LABS: Band 2 % (5-11); Hemoglobin 15.9 g/dL (14.0-18.0); Lymphocytes 12 % (21-51); MDiff Complete? YES; Mean Corpuscular HGB CONC 29.1 g/dL (32.0-36.0); Mean Corpuscular Hemoglobin 27.3 pg (27.0-31.0); Mean Corpuscular Volume 93.7 fL (78.0-98.0); Mean Platelet Volume 9.4 fL (7.4-10.4); Monocytes 8 % (0-10); Neutrophil 78 % (42-75); Platelet Count 226 thou/uL (130-400); RBC Distribution Width 13.5 % (11.5-14.5); Red Blood Cell (RBC) Count 5.81 mill/uL (4.70-6.10); White Blood Cell (WBC) Count 9.1 thou/uL (4.8-10.8)
--- NOTE | 2019-11-07 07:47 | RAD ---
Portable frontal chest radiograph: 11/07/2019 COMPARISON: 11/06/2019 HISTORY: Ventilated patient FINDINGS: Heart and mediastinal contours are stable. Stable prominence of the cardiac silhouette. Sta ble tracheostomy tube. No pneumothorax or lobar consolidation. There is nonspecific linear increased density in the lung bases which may signify infiltrate or volume loss. This may be better a ssessed with PA and lateral imaging of the chest as clinically warranted. IMPRESSION: Prominent cardiac silhouette with streaky opacity in the lung bases. Stable tracheostomy tube.
[2019-11-07] MEDS: Aspirin Chewable 81 MG TAB PER TUBE SCH (08:24)
[2019-11-07] MEDS: Senokot S 8.6-50 MG TAB PO SCH ×2 (08:24→20:29)
[2019-11-07] MEDS: Famotidine 20 MG TAB PO SCH ×2 (08:25→20:28)
[2019-11-07] MEDS: Famotidine/PF 20 mg/2ml Vial SLOW IVP SCH ×2 (08:26→20:31)
--- NOTE | 2019-11-07 11:23 | PRG ---
DATE OF SERVICE: 11/07/2019 SUBJECTIVE: Mr. Culp had no complaints. He ambulated well yesterday. OBJECTIVE: VITAL SIGNS: He is afebrile. Heart rate is 92, respiratory rate is 18, oximetry is 88% on trach collar 30%, blood pressure 165/88. LUNGS: Clear. HEART: Regular rhythm. ABDOMEN: Soft. LABORATORY DATA: Hematocrit 54 today. Electrolytes are normal. IMPRESSION: 1. Life-threatening sleep apnea status post tracheostomy. He relays that he cannot believe how good he feels at this point. 2. Erythrocytosis secondary to severe untreated sleep apnea, status post multiple phlebotomies. 3. Life-threatening obesity. Overall, he appears stable. He needs to ambulate for a few days and perhaps he can go home early next week. Job ID: [id number]
--- NOTE | 2019-11-07 13:23 | PRG ---
DATE OF SERVICE: 11/07/2019 SUBJECTIVE: The patient is seen and examined at the bedside. The patient's daughter is present in the room during my visit. OBJECTIVE: VITAL SIGNS: Blood pressure is 157/92, pulse is 74, temperature is 98.6, maximal temperature is 99.3, respiratory rate is 20, O2 saturation is 89% on 6 L through the trach collar. HEENT: His head is atraumatic and normocephalic. His pupils are responding to light properly. Sclerae are nonicteric. Oral mucosa is moist. NECK: Tracheostomy tube in place. LUNGS: Breath sounds diminished at both bases. HEART: S1 and S2 normal. No S3. No S4. ABDOMEN: Soft, obese, and nontender. EXTREMITIES: Up to 2+ peripheral edema, similar bilateral on both lower extremities. NEUROLOGIC: He is alert and oriented x4. There are no any motor or sensory deficits. LABORATORY DATA: Normal chemistry. Normal white count, normal hemoglobin, hematocrit still up at 54.5, and platelet count is 226,000. Two blood cultures, negative. IMPRESSION: 1. Acute hypoxic/hypercapnic respiratory failure with pulmonary hypertension and right heart failure, status post tracheostomy done on November 03. 2. [id number]-[id number] diastolic heart failure. 3. Toxic metabolic encephalopathy, resolved. 4. Obstructive sleep apnea/obesity hypoventilation syndrome. 5. Hypokalemia, replaced. 6. Type 2 myocardial infarction. 7. Erythrocytosis, status post phlebotomy secondary to untreated sleep apnea and chronic hypoxia. 8. Morbid obesity with body mass index of 46.7. PLAN: He will continue PT. He will continue the rest of current regimen with aspirin. We will start him on losartan/hydrochlorothiazide 50/12.5 once a day since his blood pressure started going up. We will manage his tracheostomy tube, and he should be able to go home in the next few days when he is more mobile. Job ID: [id number]
[2019-11-07] MEDS: Rosuvastatin 20 MG TAB PO SCH (20:28)
[2019-11-07] MEDS: Enoxaparin Sodium 40 MG/0.4 ML SYRINGE SC SCH (20:31)
[2019-11-08] MEDS: Aspirin Chewable 81 MG TAB PER TUBE SCH (09:55)
[2019-11-08] MEDS: Famotidine 20 MG TAB PO SCH ×2 (09:55→20:19)
[2019-11-08] MEDS: Senokot S 8.6-50 MG TAB PO SCH ×2 (09:56→20:19)
[2019-11-08] MEDS: Famotidine/PF 20 mg/2ml Vial SLOW IVP SCH ×2 (09:56→20:21)
--- NOTE | 2019-11-08 16:05 | PRG ---
DATE OF SERVICE: 11/08/2019 SUBJECTIVE: The patient is seen and examined at bedside. There is not much change since yesterday. He does not have much complaints to offer. OBJECTIVE: VITAL SIGNS: Blood pressure is 146/75, pulse is 82, temperature is 98.2, respirations 18, O2 saturation is 88 on 6 L by trach collar. He is morbidly obese. His weight is 272 pounds. HEENT: Pupils are responding to light properly. Sclerae are nonicteric. HEART: S1, S2 normal. No S3. No S4. Breath sounds somewhat diminished at both bases. ABDOMEN: Soft, obese, nontender. EXTREMITIES: 2+ peripheral edema, similar bilaterally. LABORATORY DATA: Normal chemistry. IMPRESSION: 1. Acute hypoxic/hypercapnic respiratory failure with pulmonary hypertension and right heart failure, status post tracheostomy done on November 03. 2. Acute on chronic diastolic heart failure. 3. Toxic metabolic encephalopathy, resolved. 4. Obstructive sleep apnea/obesity hypoventilation syndrome. 5. Hypokalemia, replaced. 6. Type 2 myocardial infarction. 7. Erythrocytosis secondary to chronic hypoxia. 8. Morbid obesity with body mass index of 46.7. PLAN: He will continue PT. We will start him on his losartan with hydrochlorothiazide and he is able to maintain his pulmonary status. Job ID: [id number]
[2019-11-08] MEDS ORDERED: Furosemide 20 MG TAB PO SCH (16:45)
[2019-11-08] MEDS: Rosuvastatin 20 MG TAB PO SCH (20:19)
[2019-11-08] MEDS: Enoxaparin Sodium 40 MG/0.4 ML SYRINGE SC SCH (20:19)
--- NOTE | 2019-11-08 23:51 | PRG ---
DATE OF SERVICE: 11/08/2019 SERVICE: Pulmonary Medicine. INTERVAL HISTORY: The patient is doing fine from respiratory standpoint. He is on T-collar. He is breathing comfortably. He was actually sleeping quite well. With minimal disturbance, I was able to wake him up. Indicated that he did not have any fevers or chills. Otherwise, he is returning to his usual state of health. PHYSICAL EXAMINATION: VITAL SIGNS: Afebrile, pulse 81, pressure 129/76, respirations 16, saturation 93% on T-collar. GENERAL: The patient is awake and alert, in no apparent distress. LUNGS: Wonderful air entry. There is no prolonged expiratory phase, but extensive crackling is present. No wheezing is present. HEART: Normal rate, regular. ABDOMEN: Soft, nontender, nondistended. Bowel sounds are positive. MUSCULOSKELETAL: No cyanosis or clubbing. There is 3+ pitting in bilateral lower extremities. NEUROLOGIC: Grossly nonfocal. ASSESSMENT: 1. Acute hypoxic respiratory failure. 2. Obstructive sleep apnea, life-threatening, status post tracheostomy. 3. [id number] diastolic heart failure. 4. Pulmonary hypertension, multifactorial. DISCUSSION AND PLAN: The patient is breathing very comfortably. We will continue to diurese him down to euvolemia. Pulmonary will continue to follow intermittently during this hospital stay. If he gets into trouble over the weekend, please give me a phone call, but otherwise, Dr. Stark will assume care on Sunday. Job ID: [id number]
[2019-11-09] MEDS ORDERED: Furosemide 20 MG TAB PO SCH (09:00)
[2019-11-09] MEDS: Senokot S 8.6-50 MG TAB PO SCH ×2 (09:33→20:38)
[2019-11-09] MEDS: Famotidine 20 MG TAB PO SCH ×2 (09:33→20:38)
[2019-11-09] MEDS: Furosemide 40 MG/4 ML VIAL SLOW IVP SCH (09:34)
[2019-11-09] MEDS: Famotidine/PF 20 mg/2ml Vial SLOW IVP SCH ×2 (09:35→20:19)
[2019-11-09] MEDS: Aspirin Chewable 81 MG TAB PER TUBE SCH (09:46)
--- NOTE | 2019-11-09 11:40 | PRG ---
DATE OF SERVICE: 11/09/2019 SUBJECTIVE: The patient is seen and examined at the bedside. He is doing gradually better. He urinates a lot. His appetite is fair. Bowel movements daily. OBJECTIVE: VITAL SIGNS: Blood pressure is 125/74, pulse is 88, respirations 20, temperature is 98.7, and O2 saturation is 90% on 6 L of flow through trach collar, FiO2 of 28. HEENT: His pupils are responding to light properly. Sclerae are nonicteric. Oral mucosa is moist. NECK: Supple, obese. LUNGS: Breath sounds somewhat diminished at both bases. HEART: S1 and S2 normal. No S3. No S4. ABDOMEN: Obese, nontender. EXTREMITIES: 2+ peripheral edema. His urine output, I do not think that measurement is adequate. It is 475 for the previous 24 hours. There is nothing for the last 24 hours. LABORATORY DATA: None. He had normal BMP yesterday. IMPRESSION: 1. Acute hypoxic/hypercapnic respiratory failure with pulmonary hypertension and right heart failure, status post tracheostomy done on November 03. 2. Acute on chronic diastolic heart failure. 3. Toxic metabolic encephalopathy, resolved. 4. Obstructive sleep apnea/obesity hypoventilation syndrome. 5. Hypokalemia, replaced. 6. Type 2 myocardial infarction. 7. Erythrocytosis secondary to chronic hypoxia. 8. Morbid obesity with body mass index of 46.7. PLAN: The patient will continue current regimen. We will continue diuresis. He was started on losartan with hydrochlorothiazide yesterday. He seems to be gradually getting better and getting ready to be discharged soon. Dr. Stark is resuming pulmonary care tomorrow and he will make decision when the patient can go home. Job ID: [id number]
[2019-11-09] MEDS: Rosuvastatin 20 MG TAB PO SCH (20:39)
[2019-11-09] MEDS: Enoxaparin Sodium 40 MG/0.4 ML SYRINGE SC SCH (20:40)
[2019-11-09] MEDS: guaiFENesin 200 MG TAB PO PRN (22:13)
[2019-11-10 04:43] LABS: Anion Gap 11 mmol/L (10-20); BUN (Urea Nitrogen) 16 mg/dL (8.4-25.7); Calc. Creatinine Clearance 140 mL/min (70-130); Carbon Dioxide 31 mmol/L (22-29); Chloride 94 mmol/L (98-107); Estimated GFR-MDRD 75; Glucose 132 mg/dL (70-105); Magnesium 1.9 mg/dL (1.6-2.6); Potassium 3.7 mmol/L (3.5-5.1); Sodium 132 mmol/L (136-145)
[2019-11-10] MEDS: Senokot S 8.6-50 MG TAB PO SCH ×2 (08:22→20:26)
[2019-11-10] MEDS: Aspirin Chewable 81 MG TAB PER TUBE SCH (08:22)
[2019-11-10] MEDS: Furosemide 40 MG/4 ML VIAL SLOW IVP SCH (08:22)
[2019-11-10] MEDS: Famotidine 20 MG TAB PO SCH ×2 (08:29→20:48)
[2019-11-10] MEDS: Famotidine/PF 20 mg/2ml Vial SLOW IVP SCH ×2 (09:00→19:25)
--- NOTE | 2019-11-10 16:00 | PRG ---
DATE OF SERVICE: 11/10/2019 SUBJECTIVE: Mr. Culp is ambulating in the [place]. He is doing well. OBJECTIVE: LUNGS: Clear. HEART: Regular rhythm. ABDOMEN: Soft. PLAN: I think it is reasonable to begin discharge planning. He will need a trach collar oxygen with humidity at home. Once he gets 50 or 60 pounds more off, we can consider downsizing his trach and capping it during the day, but for now this is what he needs. Job ID: [id number]
[2019-11-10] MEDS: Rosuvastatin 20 MG TAB PO SCH ×2 (19:25→20:47)
[2019-11-10] MEDS: Enoxaparin Sodium 40 MG/0.4 ML SYRINGE SC SCH (20:46)
[2019-11-10] MEDS: guaiFENesin 200 MG TAB PO PRN (21:07)
--- NOTE | 2019-11-10 22:38 | PDOC.HOSPP ---
- Subjective Encounter Date: 11/10/19 Encounter Time: 10:00 Subjective: no overnight events. Sitting comfortably and breathing and saturating well with trach collar. - Objective Vital Signs & Weight: Vital Signs (12 hours) Temp Pulse Pulse Pulse Resp BP BP 11/10/19 20:00 99.0 F 96 24 H 11/10/19 13:46 92 95 100/63 112/67 BP Pulse Ox Pulse Ox Pulse Ox 11/10/19 20:00 123/61 88 L 11/10/19 13:46 95 84 L Weight Admit Weight 287 lb 14.4 oz Weight 272 lb 11.389 oz Most Recent Monitor Data Heart Rate from ECG 76 NIBP 123/70 NIBP BP-Mean 87 Respiration from ECG 23 SpO2 89 I&O: 11/09/19 11/10/19 11/11/19 06:59 06:59 06:59 Intake Total 760 1080 240 Balance 760 1080 240 Result Diagrams: 11/07/19 05:49 11/10/19 03:57 Hospitalist ROS - Review of Systems Constitutional: denies: fever, chills, sweats, weakness, malaise, other Respiratory: denies: cough, dry, shortness of breath, hemoptysis, SOB with excertion, pleuritic pain, sputum, wheezing, other Cardiovascular: denies: chest pain, palpitations, orthopnea, paroxysmal noc. dyspnea, edema, light headedness, other Gastrointestinal: denies: nausea, vomiting, abdominal pain, diarrhea, constipation, melena, hematochezia, other Genitourinary: denies: dysuria, frequency, incontinence, hematuria, retention, other Neurological: denies: weakness, numbness, incoordination - Medication Medications: Active Medications Generic Name Dose Route Start Last Admin Trade Name Freq PRN Reason Stop Dose Admin Aspirin 81 mg 11/01/19 09:00 11/10/19 08:22 Aspirin Chewable PER TUBE 81 mg DAILY SONIA Administration Enoxaparin Sodium 40 mg 10/30/19 21:00 11/10/19 20:46 Lovenox SC 40 mg 2100 SONIA Administration Famotidine 20 mg 10/30/19 21:00 11/10/19 20:48 Pepcid PO 20 mg BID SONIA Administration Famotidine 20 mg 10/30/19 21:00 11/10/19 19:25 Pepcid SLOW IVP Not Given BID SONIA HCTZ/Losartan Potassium 1 tab 11/08/19 09:00 11/10/19 08:29 Hyzaar 50/12.5 PO 1 tab DAILY SONIA Administration Rosuvastatin Calcium 40 mg 11/07/19 21:00 11/10/19 20:47 Crestor PO 40 mg QPM SONIA Administration Senna/Docusate Sodium 1 tab 11/04/19 21:00 11/10/19 20:26 Senokot S PO Not Given BID SONIA Sodium Chloride 10 ml 10/29/19 23:31 11/10/19 20:48 Flush - Normal Saline IVF 10 ml PRN PRN Administration Saline Flush - Exam General Appearance: NAD, awake alert Heart: RRR, no murmur, no gallops, no rubs Respiratory: CTAB, no wheezes, no rales, no ronchi Respiratory - other findings: trach collar in place, 5L, breathing and satting well Extremities - other findings: b/l LE pitting edema to knee level; per patient improving Neurological: cranial nerve grossly intact Psychiatric: normal affect, normal behavior, A&O x 3 Hosp A/P - Plan 1. Acute hypoxic/hypercapnic respiratory failure with pulmonary hypertension and right heart failure, status post tracheostomy done on November 03. 2. Acute on chronic diastolic heart failure. 3. Toxic metabolic encephalopathy, resolved. 4. Obstructive sleep apnea/obesity hypoventilation syndrome. 5. Hypokalemia, replaced. 6. Type 2 myocardial infarction. 7. Erythrocytosis secondary to chronic hypoxia. 8. Morbid obesity with body mass index of 46.7. PLAN: patient doing well and per Dr. Stark can start planning for DC. Placed consult for humidified collar oxygen
[2019-11-11 04:40] LABS: Anion Gap 13 mmol/L (10-20); BUN (Urea Nitrogen) 18 mg/dL (8.4-25.7); Calc. Creatinine Clearance 135 mL/min (70-130); Calcium 9.3 mg/dL (7.8-10.44); Carbon Dioxide 32 mmol/L (22-29); Chloride 92 mmol/L (98-107); Estimated GFR-MDRD 72; Glucose 124 mg/dL (70-105); Potassium 3.8 mmol/L (3.5-5.1); Sodium 133 mmol/L (136-145)
[2019-11-11] MEDS: Aspirin Chewable 81 MG TAB PER TUBE SCH (08:39)
[2019-11-11] MEDS: Famotidine 20 MG TAB PO SCH ×2 (08:39→20:47)
[2019-11-11] MEDS: Senokot S 8.6-50 MG TAB PO SCH ×2 (08:39→20:19)
[2019-11-11] MEDS: Famotidine/PF 20 mg/2ml Vial SLOW IVP SCH ×2 (10:18→20:19)
--- NOTE | 2019-11-11 17:38 | PRG ---
DATE OF SERVICE: 11/11/2019 SUBJECTIVE: Tiburcio Culp is feeling great. He is ready to go home and is still waiting oxygen and supplies. OBJECTIVE: VITAL SIGNS: His oximetry is 90 on 28% trach collar. I suspect within a month to two months, he will no longer require oxygen. He is afebrile. Heart rate is 99, blood pressure has been stable 128/81. LUNGS: Clear. IMPRESSION: 1. Untreated sleep apnea, life-threatening. 2. Erythrocytosis, status post multiple phlebotomies secondary to untreated sleep apnea. His hematocrit is stable at 52 on the 30 and 54 on the . We will continue to follow. Job ID: [id number]
[2019-11-11 19:56] VITALS: BP 130/64
--- NOTE | 2019-11-11 20:31 | PDOC.HOSPP ---
- Subjective Encounter Date: 11/11/19 Encounter Time: 11:00 Subjective: no overnight events. Continue to breath well and saturate in 90s on trach 5-6L. Uninsured, pending DC after supplies procured. - Objective Vital Signs & Weight: Vital Signs (12 hours) Temp Pulse Resp BP Pulse Ox 11/11/19 19:55 98.6 F 90 20 130/64 92 L Weight Admit Weight 287 lb 14.4 oz Weight 272 lb 11.389 oz Most Recent Monitor Data Heart Rate from ECG 76 NIBP 123/70 NIBP BP-Mean 87 Respiration from ECG 23 SpO2 89 I&O: 11/10/19 11/11/19 11/12/19 06:59 06:59 06:59 Intake Total 1080 480 Balance 1080 480 Result Diagrams: 11/07/19 05:49 11/11/19 03:59 Hospitalist ROS - Review of Systems Constitutional: denies: fever, chills, sweats, weakness, malaise, other Respiratory: denies: cough, dry, shortness of breath, hemoptysis, SOB with excertion, pleuritic pain, sputum, wheezing, other Cardiovascular: denies: chest pain, palpitations, orthopnea, paroxysmal noc. dyspnea, edema, light headedness, other Gastrointestinal: denies: nausea, vomiting, abdominal pain, diarrhea, constipation, melena, hematochezia, other Genitourinary: denies: dysuria, frequency, incontinence, hematuria, retention, other Neurological: denies: weakness, numbness, incoordination, change in speech, confusion, seizures, other - Medication Medications: Active Medications Generic Name Dose Route Start Last Admin Trade Name Elia PRN Reason Stop Dose Admin Aspirin 81 mg 11/01/19 09:00 11/11/19 08:39 Aspirin Chewable PER TUBE 81 mg DAILY SONIA Administration Enoxaparin Sodium 40 mg 10/30/19 21:00 11/10/19 20:46 Lovenox SC 40 mg 2100 SONIA Administration Famotidine 20 mg 10/30/19 21:00 11/11/19 08:39 Pepcid PO 20 mg BID SONIA Administration Famotidine 20 mg 10/30/19 21:00 11/11/19 20:19 Pepcid SLOW IVP Not Given BID SONIA HCTZ/Losartan Potassium 1 tab 11/08/19 09:00 11/11/19 08:39 Hyzaar 50/12.5 PO 1 tab DAILY SONIA Administration Rosuvastatin Calcium 40 mg 11/07/19 21:00 11/10/19 20:47 Crestor PO 40 mg QPM SONIA Administration Senna/Docusate Sodium 1 tab 11/04/19 21:00 11/11/19 20:19 Senokot S PO Not Given BID SONIA Sodium Chloride 10 ml 10/29/19 23:31 11/10/19 20:48 Flush - Normal Saline IVF 10 ml PRN PRN Administration Saline Flush - Exam General Appearance: NAD, awake alert Heart: RRR, no murmur, no gallops, no rubs, normal peripheral pulses Respiratory: CTAB, no wheezes, no rales, no ronchi, normal chest expansion, no tachypnea, normal percussion Gastrointestinal: soft, non-tender, non-distended, normal bowel sounds, no palpable masses, no hepatomegaly, no splenomegaly, no bruit Extremities: no cyanosis, no clubbing Extremities - other findings: b/l LE edema improving Neurological: cranial nerve grossly intact, normal sensation to touch, no weakness, no focal deficits, no new deficit Psychiatric: normal affect, normal behavior, A&O x 3 Hosp A/P - Plan 1. Acute hypoxic/hypercapnic respiratory failure with pulmonary hypertension and right heart failure, status post tracheostomy done on November 03. 2. Acute on chronic diastolic heart failure. 3. Toxic metabolic encephalopathy, resolved. 4. Obstructive sleep apnea/obesity hypoventilation syndrome. 5. Hypokalemia, resolved. 6. Type 2 myocardial infarction. 7. Erythrocytosis secondary to chronic hypoxia. 8. Morbid obesity with body mass index of 46.7. PLAN: Pending DC pending humidified collar oxygen procurement
[2019-11-11] MEDS: Rosuvastatin 20 MG TAB PO SCH (20:47)
[2019-11-11] MEDS: Enoxaparin Sodium 40 MG/0.4 ML SYRINGE SC SCH (20:49)
[2019-11-12] MEDS: Aspirin Chewable 81 MG TAB PER TUBE SCH (08:35)
[2019-11-12] MEDS: Senokot S 8.6-50 MG TAB PO SCH (08:35)
[2019-11-12] MEDS: Famotidine/PF 20 mg/2ml Vial SLOW IVP SCH (08:35)
[2019-11-12 09:05] VITALS: TEMP 98.3
[2019-11-12] MEDS: Famotidine 20 MG TAB PO SCH (09:30)
--- NOTE | 2019-11-13 14:17 | DIS ---
DATE OF ADMISSION: 10/29/2019 DATE OF DISCHARGE: 11/12/2019 HISTORY: Mr. Culp is a 59-year-old morbidly obese male with a medical history of obstructive sleep apnea, noncompliant with CPAP; hypertension; diabetes; who presented to the ED with worsening shortness of breath for 4 weeks and that worsened over the past few days prior to presentation and associated with lower extremity edema, decreased functional status, and labored respirations. The patient was diagnosed with acute respiratory failure and pulmonary hypertension and required prolonged intubation. Despite management of his multiple cardiopulmonary morbidities, the patient remained dependent on ventilation and tracheostomy was indicated. Prior to discharge, the patient did not have insurance, was arranged humidified trach collar oxygen, he was walking throughout the floor with his trach collar without signs of respiratory distress. He was discharged home hemodynamically stable, breathing and saturating well with his trach collar on 5 to 6 L. PHYSICAL EXAMINATION: VITALS: Unremarkable. GENERAL APPEARANCE: No apparent distress. Awake and alert. HEART: Regular rate and rhythm. No murmurs. No gallops. No rubs. Normal peripheral pulses. RESPIRATORY: Trach collar in place with humidified oxygen at 5 L. The patient is saturating in the high 90s. Clear to auscultation bilaterally. No wheezes, no rales, no rhonchi. GASTROINTESTINAL: Soft, nontender, nondistended. Normal bowel sounds. EXTREMITIES: Bilateral lower extremity edema that has improved during inpatient stay. NEUROLOGICAL: Cranial nerves grossly intact. Normal sensation to touch. No weakness. No focal deficits. No new deficits. PSYCHIATRIC: Normal affect. Normal behavior. Alert and oriented x3. ASSESSMENT AND PLAN: Mr. Culp is a 59-year-old male with a medical history of obstructive sleep apnea, nonadherence to CPAP treatment, and heart failure with preserved ejection fraction, who presented with acute hypoxic and hypercapnic respiratory failure with pulmonary hypertension and right heart failure, status post tracheostomy done on November 03. The patient was requiring prolonged support from mechanical ventilation and was treated with tracheostomy. In addition to that, the patient was diuresed throughout the inpatient stay for acute on chronic heart failure with preserved ejection fraction. As for his obstructive sleep apnea and obesity hypoventilation syndrome, the patient was educated regarding adherence to positive-pressure ventilation in order to prevent further deterioration in his cardiopulmonary status. The patient was discharged home with supply of humidified oxygen as well as followup appointments with his primary care physician and Pulmonology Service. Job ID: [id number]
== END 2019-11-12 18:39 | disposition home or self-care (01) | DRG 4 ==
LOC: ERS 19:50 → IMCU/EMU 23:25 → CCU 10-30 01:38 → ONC 11-06 18:46
PROVIDERS: ADMIT Hospitalist; ATTEND Emergency Medicine
PROC: 5A1955Z Respiratory Ventilation, Greater than 96 Consecutive Hours (ICD-10-PCS; 2019-10-29)
PROC: 0BH17EZ Insertion of Endotracheal Airway into Trachea, Via Natural or Artificial Opening (ICD-10-PCS; 2019-10-29)
PROC: 5A09357 Assistance with Respiratory Ventilation, Less than 24 Consecutive Hours, Continuous Positive Airway Pressure (ICD-10-PCS; 2019-10-29)
PROC: 3E033XZ Introduction of Vasopressor into Peripheral Vein, Percutaneous Approach (ICD-10-PCS; 2019-10-30)
PROC: 0B110F4 Bypass Trachea to Cutaneous with Tracheostomy Device, Open Approach (ICD-10-PCS; principal; 2019-11-04)
DX: J96.21 Acute and chronic respiratory failure with hypoxia (principal); I50.33 Acute on chronic diastolic (congestive) heart failure; I21.A1 Myocardial infarction type 2; G92 Toxic encephalopathy; E66.2 Morbid (severe) obesity with alveolar hypoventilation; Z68.42 Body mass index [BMI] 45.0-49.9, adult; J96.22 Acute and chronic respiratory failure with hypercapnia; E78.5 Hyperlipidemia, unspecified; D75.1 Secondary polycythemia; E88.81 Metabolic syndrome and other insulin resistance; E87.6 Hypokalemia; I27.29 Other secondary pulmonary hypertension; E11.9 Type 2 diabetes mellitus without complications; I11.0 Hypertensive heart disease with heart failure; D72.829 Elevated white blood cell count, unspecified; Z88.5 Allergy status to narcotic agent; Z79.899 Other long term (current) drug therapy; Z79.82 Long term (current) use of aspirin; Z91.19 Patient's noncompliance with other medical treatment and regimen; Z91.11 Patient's noncompliance with dietary regimen
CPT/HCPCS: 36415; 36416; 71045; 71275; 74018; 80048; 80053; 81003; 81015; 82550; 82553; 82805; 83605; 83735; 83880; 84484; 85007; 85025; 85027; 87040; 93005; 93306; 93798; 94002; 94003; 94640; 94660; 96365; 96367; 96375; 99195; J0456; J0692; J0696; J1100; J1650; J1940; J2060; J2250; J2370; J2405; J2704; J2765; J3010; J3475; J3490; J7050; J7620; Q9967; S0020; S0028

== ENCOUNTER 2019-11-27 09:21 | Outpatient (CLI) | payer OTHER ==
--- NOTE | 2019-11-27 11:22 | RAD ---
PA AND LATERAL CHEST: Date: 11/27/2019 COMPARISON: 11/06/2019 exam. 05/15/18 study. FINDINGS: Heart size is enlarged. Tracheostomy tube is present. Calcified granuloma is seen in the right upper lobe. Lungs show some chronic change. IMPRESSION: Chronic lung change and cardiomegaly. Stable exam. POS: [facility]
== END 2019-11-27 09:22 | disposition home or self-care (01) ==
LOC: RAD 09:21
PROVIDERS: ATTEND Internal Medicine Critical Care Medicine
DX: R06.00 Dyspnea, unspecified (principal); I51.7 Cardiomegaly
CPT/HCPCS: 71046

== ENCOUNTER 2020-04-23 13:46 | Emergency (ER) | payer SELFPAY ==
[2020-04-23 15:06] LABS: #Basophils 0.1 thou/uL (0.0-0.2); #Eosinphils 0.3 thou/uL (0.0-0.7); #Lymphocytes 2.2 thou/uL (1.20-3.40); #Neutrophils 5.5 thou/uL (1.40-6.50); %Basophils 0.8 % (0.0-1.0); %Eosinophils 3.5 % (0.0-10.0); %Lymphocytes 24.4 % (21.0-51.0); %Monocytes 11.2 % (0.0-10.0); Mean Corpuscular HGB CONC 30.2 g/dL (32.0-36.0); Mean Corpuscular Hemoglobin 24.8 pg (27.0-31.0); Mean Corpuscular Volume 82.3 fL (78.0-98.0); Mean Platelet Volume 9.3 fL (7.4-10.4); Platelet Count 247 thou/uL (130-400); RBC Distribution Width 17.3 % (11.5-14.5); Red Blood Cell (RBC) Count 6.85 mill/uL (4.70-6.10); White Blood Cell (WBC) Count 9.1 thou/uL (4.8-10.8)
== END 2020-04-23 17:46 | disposition left against medical advice (07) ==
LOC: ERS 13:46
DX: Z53.21 Procedure and treatment not carried out due to patient leaving prior to being seen by health care provider (principal)
CPT/HCPCS: 36415; 85025

== ENCOUNTER 2020-09-23 11:54 | Emergency (ER) | payer SELFPAY ==
[2020-09-23] MEDS ORDERED: EPINEPHrine 1 MG/ML AMP ONE (13:43)
[2020-09-23] MEDS ORDERED: Lidocaine 1% PF 5 ML VIAL ONE (13:43)
--- NOTE | 2020-09-23 14:16 | RAD ---
AP CHEST: Date: 09/23/2020 INDICATION: Tracheostomy evaluation. COMPARISON: 04/23/2020. FINDINGS: Tracheostomy device is noted. The lung polk are clear. No infiltrate or vascular congestion. No significant effusion. No interval change. IMPRESSION: No acute lung process. POS: [facility]
--- NOTE | 2020-09-23 14:53 | CON ---
DATE OF CONSULTATION: HISTORY OF PRESENT ILLNESS: Tiburcio Culp is a 60-year-old obese, gentleman, who was seen in the ER urgent care after he had an issue regarding his trach. He was unable to put his inner cannula inside. The ER doctor notified me, Dr. Wright, that he also tried to put the cannula in. Apparently, there was some blockage, probably there was granulation tissue. The patient has a permanent trach for sleep apnea, being followed by Dr. Stark. In the ER, a #[address] was in place. There was no inner cannula. Unclear why they were unable to pass the inner cannula. There was some granulation tissue around his trach site. The whole #6 trach was removed. Clearly, there was a large amount of granulation tissue around the tracheostomy orifice. As soon as we took the trach out, the area started to bleed profusely and the orifice size decreased. Epinephrine 1:1000 of 1 mL was instilled around the trach site, which controlled the bleeding. Able to get a new #6 cuffless fenestrated trach, which then was inserted in the orifice area without any issues. I was then able to place the inner cannula in place. was at the bedside. Notified the about the process. There was a large amount of granulation tissue around the trach site, which was bleeding, which then since subsided after the epinephrine instilled. These findings were then discussed with the another ER physician, Dr. Joey Delgado, who was notified about the procedure with change in trach. Eventually, if the patient starts having problems, need to come back to the hospital, where he is going to require surgical removal of his granulation issue and reinsert his #6 cuffless trach. As of now, he is breathing adequately with less blood coming out of his trach site. An x-ray is pending. During the entire procedure, his saturations were 95% to 96%, pulse 80, blood pressure 130/80. He was awake, alert, responsive during the whole process. To note, the patient denies any history of fever or chills. PAST MEDICAL HISTORY: Hypertension, sleep apnea, high cholesterol. PAST SURGICAL HISTORY: Hernia, trach. SOCIAL HISTORY: Alcohol, none. No tobacco. HOME MEDICATIONS: Include: 1. Metformin 500. 2. Crestor 40. 3. Losartan. 4. Zyrtec. 5. Aspirin. ALLERGIES: MORPHINE. PHYSICAL EXAMINATION: GENERAL: Once again, on examination, he is in no distress. VITAL SIGNS: Sats are 96% oxygen, pulse 80, blood pressure 130/80, respiratory rate 18. CHEST: No wheezing. No crackles. CARDIAC: Normal S1, S2. No gallops. ASSESSMENT: 1. #6 cuffless trach was reinserted around significant granulation tissue at the trach site. 2. Hypertension. 3. Sleep apnea. PLAN: He is going to be discharged home. He is going to have a new tie. X-ray is being ordered. Looks stable, he can be discharged. Follow up with Dr. Stark. Please note, this is a consult, 70 minutes, 50% direct patient care along with a trach change. Job ID: [id number]
== END 2020-09-23 14:23 | disposition home or self-care (01) ==
LOC: ERS 11:54
DX: J95.03 Malfunction of tracheostomy stoma (principal); I10 Essential (primary) hypertension; E11.9 Type 2 diabetes mellitus without complications; E78.00 Pure hypercholesterolemia, unspecified
CPT/HCPCS: 31502; 71045; J0171

== ENCOUNTER 2021-01-04 05:23 | Emergency (ER) | payer SELFPAY | END 2021-01-04 06:07 | disposition home or self-care (01) | LOC: ERS 05:23 | DX: J95.09 Other tracheostomy complication (principal); I10 Essential (primary) hypertension; E11.9 Type 2 diabetes mellitus without complications; G47.33 Obstructive sleep apnea (adult) (pediatric); E78.00 Pure hypercholesterolemia, unspecified; Z79.82 Long term (current) use of aspirin; Z79.84 Long term (current) use of oral hypoglycemic drugs | CPT/HCPCS: 43762 ==